=== PATIENT | male | born 1935 | race Caucasian/White ===

== ENCOUNTER 2020-05-30 18:48 | Emergency (ER) | payer MEDICARE, OTHER, SELFPAY ==
--- NOTE | 2020-05-30 | CTR_ITS ---
PROCEDURE INFORMATION: Exam: CT Maxillofacial Without Contrast Exam date and time: 05/30/2020 7:18 PM Age: 85 years old Clinical indication: Injury or trauma; Fall; Blunt trauma (contusions or hematomas); Forehead; Additional info: Laceration to forehead TECHNIQUE: Imaging protocol: Computed tomography images of the face without contrast. Radiation optimization: All CT scans at this facility use at least one of these dose optimization techniques: automated exposure control; mA and/or kV adjustment per patient size (includes targeted exams where dose is matched to clinical indication); or iterative reconstruction. COMPARISON: No relevant prior studies available. RADIATION DOSE METRICS: Total DLP (mGy-cm): 805 FINDINGS: Orbital cavity: Orbits are normal. Globes are unremarkable. Bones/joints: No acute fracture. Paranasal sinuses: Chronic left maxillary sinusitis is noted. CT/CT facial bones wo con* [id number] IMPRESSION: 1. No facial bone fracture. 2. Chronic left maxillary sinusitis Radiation Dose CTDIVOL = (mGy): DLP = 805 (mGy-cm)
[2020-05-30 18:59] VITALS: BP 198/84; PULSE 70; RESP 16; TEMP 37.4; O2SAT 98; BMI 24.0
[2020-05-30 19:02] VITALS: BP 167/91; PULSE 61; RESP 18; O2SAT 97
--- NOTE | 2020-05-30 19:06 | ED_ITS ---
HPI - Head Injury General: Chief complaint: Head Injury Stated complaint: TRIPPED OVER TRACKER BLADE, HIT FOREHEAD Time Seen by Provider: 05/30/20 19:06 History of Present Illness: HPI Narrative: Patient is a 85-year-old male who comes to the ED with head injury. Patient says he tripped over the blade on his tractor and his forehead hit his tractor truck tires. Denies any loss of consciousness or headache. He has a laceration on his forehead and some left periorbital ecchymosis and swelling. Denies any vision changes. Patient says he has had his tetanus shot within the last 5 years. Patient says he takes a daily aspirin, but is not on any other blood thinners. Associated symptoms: Deny nausea, neck pain or vomiting Review of Systems Const: Denies: fever(s), chills or fatigue Eyes: Reports: other (periorbital echymosis and swelling of left eye); Denies: change in vision or eye discomfort ENMT: Denies: throat pain, odynophagia, nasal discharge or nasal congestion Card: Denies: chest pain, palpitations, edema, swelling of feet/ankles, dyspnea on exertion or orthopnea Resp: Denies: dyspnea, productive cough or non-productive cough GI: Denies: abdominal pain, nausea, vomiting, diarrhea, constipation or hematochezia : Denies: flank pain, difficulty urinating, dysuria or hematuria Musc: Denies: neck pain, back pain or extremity swelling Skin/Breast: Reports: new lesions (laceration on forehead); Denies: rash Neuro: Denies: headache(s), numbness in extremities or weakness in extremities [facility] ED PFSH: Medical History ASHD (arteriosclerotic heart disease) Dyslipidemia GERD (gastroesophageal reflux disease) HTN (hypertension) Myocardial infarction ONEIL (obstructive sleep apnea) Surgical History S/P PTCA (percutaneous transluminal coronary angioplasty) Family History Father CAD (coronary artery disease) Mother CHF (congestive heart failure) Brother CAD (coronary artery disease) Myocardial infarction Social History Smoking and tobacco status: former smoker Household members: spouse Marital status: service: No Current occupational status: retired Physical Exam Narrative: EXAM NARRATIVE: Patient is a pleasant 85-year-old man that appears in no acute distress or pain exam. Const: COMMON NORMALS: no acute distress, patient oriented x3 and alert GENERAL APPEARANCE: cooperative and comfortable HENMT: COMMON NORMALS: normocephalic HEAD & SCALP: normocephalic and laceration left frontal Details of head laceration: linear, actively bleeding (minimal) and superficial; foreign body not present and not contaminated Head laceration size: 4.5 cm; no Reed's sign and no raccoon eyes MOUTH: Normal oral and palatal mucosa present THROAT: posterior oropharynx normal and uvula midline Eye: COMMON NORMALS: Equal, round and reactive pupils present and EOMs intact bilaterally PERIORBITAL: periorbital findings abnormal positive left periorbital swelling and periorbital ecchymosis PUPIL: Yes Equal, round and reactive pupils present Neck/C-Spine: COMMON NORMALS: supple GENERAL: Yes normal visual inspection Resp: COMMON NORMALS: normal respiratory effort, No retractions, No use of accessory muscles and clear to auscultation bilaterally AUSCULTATION: clear to auscultation bilaterally Cardio: COMMON NORMALS: regular rate, regular rhythm, S1 normal heart sound present, S2 normal heart sound present, No gallops present (Cardio), No clicks present (Cardio), No murmurs present (Cardio) and Peripheral pulses 2+ throughout RATE: regular rate RHYTHM: regular rhythm HEART SOUNDS: S1 normal heart sound present and S2 normal heart sound present PERIPHERAL PULSES: Peripheral pulses 2+ throughout GI: COMMON NORMALS: Normal to inspection, nondistended, normoactive bowel sounds present, Soft to palpation, non-tender and no masses PALPATION: Yes Soft to palpation : COMMON NORMALS: Yes no CVA tenderness BLADDER/KIDNEY EXAM: Yes no CVA tenderness Back/Pelvis: COMMON NORMALS: no CVA tenderness Extremity: COMMON NORMALS: normal to inspection Neuro: COMMON NORMALS: patient oriented x3, CN's II-XII intact bilaterally, moves all extremities, no focal motor deficits and no sensory deficits noted SENSORIUM/ORIENTATION: Yes alert SENSORY EXAM: Yes extremities (intact) MOTOR EXAM: 5/5 motor strength present throughout Skin: GENERAL SKIN EXAM: dry skin Procedures Laceration Laceration 1: Site: face (forehead) Side (If applicable): left Size (cm): 4.5 Description: linear and clean Depth: simple, single layer Local Anesthetic: lidocaine 1% Amount of anesthesia used (mL): 10 Pre-repair: wound explored and irrigated extensively (Irrigated extensively with normal saline.) Skin layer closed with: nylon Size (cm): 4-0 Number of sutures: 9 Technique: simple, interrupted Course Vital Signs: Vital signs: Vital Signs Temperature 99.3 F 05/30/20 18:59 Pulse Rate 78 05/30/20 20:33 Respiratory Rate 18 05/30/20 20:33 Blood Pressure 163/94 05/30/20 20:33 Pulse Oximetry 94 05/30/20 20:33 MDM - Head Injury MDM Narrative: Medical decision making narrative: Patient is an 85-year-old male comes to the ED with head injury. He has 4.5 cm linear laceration on left side of forehead left periorbital ecchymosis and swelling present. Neuro exam is normal. CT of head and facial bones showed no acute fractures or findings. Laceration forehead was irrigated extensively with normal saline and then 9 sutures were placed to close laceration. Patient was put on a prophylactic dose of Keflex. Patient was instructed on laceration care. Follow-up with PCP in 5 days for reevaluation and suture removal. Return to ED precautions given. Patient understood and agreed with plan. Lab Data: Labs: Lab Results 05/30/20 Range/Units 20:10 Urine Color Yellow (Yellow) Urine Appearance Cloudy (CLEAR) Urine pH 6 (5-7) Ur Specific Gravit y 1.015 (1.005-1.030) Urine Protein Neg (Negative) Urine Glucose (UA) Norm (Normal) Urine Ketones Negative (Negative) Urine Blood 3+ H (Negative) Urine Nitrate Negative (Negative) Urine Bilirubin Neg (Negative) Urine Urobilinogen Norm (Negative) mg/dL Ur Leukocyte Kaelyn ase 2+ H (Negative) Urine RBC >100 H (0-2) /hpf Urine WBC Too numerous to c nt H (0-5) /hpf Ur Squamous Epith Cells 0-4 H (0-5) /hpf Amorphous Sediment Not Reportable Urine Bacteria 4+ H (NONE) /hpf Imaging Data^: CT Head: Attestation: I personally reviewed and interpreted this imaging study as follows: Radiologist's impression: [address] [address] [address] Scan Report Signed Patient: Elvis Paiz Unit #: [id number] : 1935 Age/Sex: 85 / M ADM Date: 05/30/20 Loc: ER Room/Bed: Attending Dr: Ordering Provider/Ordering MD: Akhil Cuadra MD Date of Service: 05/30/20 Procedure(s): CT head wo con* [id number] Accession Number(s): [id number] Report Number: [id number] PROCEDURE INFORMATION: Exam: CT Head Without Contrast Exam date and time: 05/30/2020 7:09 PM Age: 85 years old Clinical indication: Injury or trauma; Fall; Blunt trauma (contusions or hematomas); Additional info: Head injury TECHNIQUE: Imaging protocol: Computed tomography of the head without contrast. Radiation optimization: All CT scans at this facility use at least one of these dose optimization techniques: automated exposure control; mA and/or kV adjustment per patient size (includes targeted exams where dose is matched to clinical indication); or iterative reconstruction. COMPARISON: CT head wo con* [id number] 12/09/2018 11:16 AM RADIATION DOSE METRICS: Total DLP (mGy-cm): 906.31 FINDINGS: Brain: Mild atrophy and mild white matter chronic microvascular changes are noted. No hemorrhage or CT evidence of acute infarction is seen. Cerebral ventricles: No ventriculomegaly. Bones/joints: Unremarkable. No acute fracture. Paranasal sinuses: Chronic left maxillary sinusitis is noted. Mastoid air cells: Visualized mastoid air cells are well aerated. Soft tissues: Soft tissue swelling and lacerations are present in the right frontal scalp and left aspect forehead. Mild soft tissue swelling is also seen in the left infraorbital region. CT/CT head wo con* [id number] IMPRESSION: No acute intracranial abnormality. Radiation Dose CTDIVOL = (mGy): DLP = 906.31 (mGy-cm) Dictated By: Rico Arreaga MD Signed By: Rico Arreaga MD Signed Date/Time: 05/30/201944 DD/ [address] [address] [address] Scan Report Signed Patient: Elvis Paiz Unit #: [id number] : 1935 Age/Sex: 85 / M ADM Date: 05/30/20 Loc: ER Room/Bed: Attending Dr: Ordering Provider/Ordering MD: Leobardo Blas Date of Service: 05/30/20 Procedure(s): CT facial bones wo con* [id number] Accession Number(s): [id number] Report Number: [id number] PROCEDURE INFORMATION: Exam: CT Maxillofacial Without Contrast Exam date and time: 05/30/2020 7:18 PM Age: 85 years old Clinical indication: Injury or trauma; Fall; Blunt trauma (contusions or hematomas); Forehead; Additional info: Laceration to forehead TECHNIQUE: Imaging protocol: Computed tomography images of the face without contrast. Radiation optimization: All CT scans at this facility use at least one of these dose optimization techniques: automated exposure control; mA and/or kV adjustment per patient size (includes targeted exams where dose is matched to clinical indication); or iterative reconstruction. COMPARISON: No relevant prior studies available. RADIATION DOSE METRICS: Total DLP (mGy-cm): 805 FINDINGS: Orbital cavity: Orbits are normal. Globes are unremarkable. Bones/joints: No acute fracture. Paranasal sinuses: Chronic left maxillary sinusitis is noted. CT/CT facial bones wo con* [id number] IMPRESSION: 1. No facial bone fracture. 2. Chronic left maxillary sinusitis Radiation Dose CTDIVOL = (mGy): DLP = 805 (mGy-cm) Dictated By: Rico Arreaga MD Signed By: Rico Arreaga MD Signed Date/Time: 05/30/201947 DD/ 45 Discharge Plan Discharge Patient Disposition: Home Clinical Impression: Facial laceration Qualifiers: Encounter type: initial encounter Qualified Code(s): S01.81XA - Laceration without foreign body of other part of head, initial encounter Condition: Stable Prescriptions: New cephalexin 500 mg capsule 500 mg PO Q6H 3 Days Qty: 12 RF: 0 No Action fluticasone propionate 50 mcg/actuation spray,suspension 1 spray INTRANASAL DAILY RF: 0 losartan 50 mg tablet 50 mg PO DAILY RF: 0 metoprolol tartrate 25 mg tablet 12.5 mg PO BID RF: 0 tamsulosin [Flomax] 0.4 mg capsule 0.4 mg PO DAILY RF: 0 hydrocodone-acetaminophen 5-325 mg tablet 1 tab PO Q6H PRNRF: 0 aspirin [Aspir-81] 81 mg tablet,delayed release (DR/EC) 81 mg PO DAILY RF: 0 MSM 1,000 mg capsule 1,000 mg PO BID RF: 0 saw palmetto 450 mg capsule 450 mg PO BID RF: 0 ascorbate calcium (vitamin C) 500 mg tablet 1 gm PO BID RF: 0 cholecalciferol (vitamin D3) 125 mcg (5,000 unit) capsule 125 mcg PO DAILY RF: 0 magnesium citrate Solution 150 ml PO DAILY RF: 0 nitroglycerin [Nitrostat] 0.4 mg tablet, sublingual 0.4 mg SUBLINGUAL Q5M PRN (Reason: chest pain) Qty: 25 RF: 2 Discharge Orders: Discharge ED (Routine); Ordered 05/30/20 Ordered By: Leobardo Blas Referrals: Selvin Canela MD [Primary Care Provider] - Discharge Diet: Regular Discharge Activity: Limit activity as instructed Patient Instructions: Suture Care (ED), Laceration (ED) Activity Restrictions/Additional Instructions: Take full course of antibiotics as prescribed. Keep laceration site clean and dry for the next 48 hours. Then after that you can clean and re-bandage daily. Watch for signs of infection such as redness, warmth, increased tenderness and puslike drainage. If you see the signs of infection return to the ED, urgent care or PCP for reevaluation. call your PCP to schedule a follow-up appointment for reevaluation and suture removal in about 5 days. Apply cold pack on face to help with swelling and take [id number] Tylenol for pain. Continue taking all home meds. Follow discharge plans as discussed. You can return to the ED if symptoms worsen. Coding Level of Care Code ED [facility] Exam Comprehensive
[2020-05-30 19:32] VITALS: BP 165/96; PULSE 73; RESP 18; O2SAT 94
[2020-05-30 20:33] VITALS: BP 163/94; PULSE 78; RESP 18; O2SAT 94
[2020-05-30 21:04] LABS: Bilirubin Urine Neg (Negative); Blood Urine 3+ (Negative); Glucose Urine UA Norm (Normal); Ketones Urine Negative (Negative); Nitrate Urine Negative (Negative); Protein Urine Neg (Negative); Specific Gravity, Urine 1.015 (1.005-1.030); Urine Appearance Cloudy (CLEAR); Urine Color Yellow (Yellow); pH Urine 6 (5-7)
[2020-05-30 21:05] LABS: Add Urine Microscopic? YES; Leukocyte Esterase Urine 2+ (Negative); Urobilinogen Urine Norm (Negative)
[2020-05-30 21:10] LABS: Bacteria Urine 4+ /hpf; RBC Urine >100 /hpf (0-2); Squamous Epithelial Cell Urine 0-4 /hpf (0-5); WBC Urine TOO NUMEROUS TO CNT /hpf (0-5)
[2020-05-30 21:11] LABS: Add Urine Culture? Yes
== END 2020-05-30 20:49 | disposition home or self-care (01) ==
PROVIDERS: Emergency Provider Physician Assistant; PCP Family Medicine
DX: S01.81XA Laceration without foreign body of other part of head, initial encounter (principal); W18.09XA Striking against other object with subsequent fall, initial encounter; E78.5 Hyperlipidemia, unspecified; I10 Essential (primary) hypertension; I25.2 Old myocardial infarction; Z87.891 Personal history of nicotine dependence; Z79.899 Other long term (current) drug therapy
CPT/HCPCS: 12013; 12345; 70450; 70486; 81001; 87077; 87086; 87186; 99281; 99283

== ENCOUNTER → 2021-05-09 12:09 | Outpatient (BNVA) | payer MEDICARE, OTHER, SELFPAY | PROVIDERS: PCP Family Medicine; Visit Provider Nurse Practitioner Family | DX: Z20.822 Contact with and (suspected) exposure to COVID-19 (principal) | CPT/HCPCS: 87635 ==

== ENCOUNTER 2021-07-18 15:05 | Outpatient (CLI) | payer MEDICARE, OTHER, SELFPAY ==
--- NOTE | 2021-07-18 15:45 | USCV_ITS ---
Elvis Paiz Age: 86 Gender: M : 1935 Exam Date: 07/18/2021 15:26 Ordering Phys: Castillo Winters M.D ([email or web address]) Technologist: Tomasa Jackson Exam Location: [facility] [place] Indication: MURMUR BP: 125 / 71 HR: 51 Rhythm: Sinus Technical Quality: Adequate MEASUREMENTS (Male / Female) Normal Values 2D ECHO LV Diastolic Diameter PLAX 4.1 cm 4.2 - 5.9 / 3.9 - 5.3 cm LV Systolic Diameter PLAX 2.9 cm LV Chamber Size 4.2 cm IVS Diastolic Thickness 1.1 cm 0.6 - 1.0 / 0.6 - 0.9 cm IVS Systolic Thickness 1.9 cm LVPW Diastolic Thickness 1.1 cm 0.6 - 1.0 / 0.6 - 0.9 cm LVPW Systolic Thickness 1.3 cm RV Chamber Size 3.4 cm LVOT Diameter 2.0 cm LV Ejection Fraction 2D Teich 55.8 % LV Ejection Fraction MOD 2C 43.7 % LV Ejection Fraction 2C AL 44.3 % LA Diameter 4.3 cm LA Width 4.3 cm LA Height 4.7 cm RA Width 2.6 cm RA Height 3.7 cm Aorta at Sinotubular Diameter 3.0 cm M-MODE Aortic Annulus Diameter 3.8 cm LA Ao Ratio MM 1.1 MV E Point Septal Separation 0.6 cm DOPPLER AV Peak Velocity 261.0 cm/s LVOT Peak Velocity 94.0 cm/s AV Area Cont Eq vti 1.1 cm squared AV Area Cont Eq pk 1.1 cm squared MV Area PHT 3.3 cm squared Mitral E to A Ratio 1.1 MV E' Velocity 49.0 cm/s Mitral E to MV E' Ratio 13.4 Mitral E to LV E' Lateral Ratio 12.5 Mitral E to LV E' Septal Ratio 14.7 TR Peak Velocity 245.5 cm/s TR Peak Gradient 24.1 mmHg TR Mean Velocity 152.7 cm/s TR Mean Gradient 10.8 mmHg TR Velocity Time Integral 68.1 cm TV Peak E Velocity 49.0 cm/s Right Atrial Pressure 3.0 mmHg Pulmonary Artery Systolic Pressu 27.1 mmHg PV Peak Velocity 124.0 cm/s RV Acceleration Time 0.1 s RV Ejection Time 0.4 s RV AcT/ET 0.4 FINDINGS Left Ventricle Normal left ventricular size. LV systolic function is normal with EFof 55-60%.No regional wall motion abnormalities. Right Ventricle The right ventricle is normal in size and function. Right Atrium The right atrium is normal in size. Left Atrium The left atrium is normal in size. Mitral Valve Structurally normal mitral valve without significant stenosis or prolapse. There is no mitral regurgitation. Aortic Valve Aortic valve is thickened and calcified. Mild to moderate aortic stenosis with aortic valve area of 1.13cm2 and mean gradient across the aortic valve of 12.3mmHg. There is no aortic regurgitation. Tricuspid Valve Structurally normal tricuspid valve without significant stenosis. Mild tricuspid regurgitation. Pulmonary artery systolic pressure is normal. Pulmonic Valve Structurally normal pulmonic valve without significant stenosis. There is no pulmonic regurgitation. Pericardium Normal pericardium without effusion. Aorta Normal ascending aorta dimension. CONCLUSIONS LV systolic function is normla with EF of 55-60% Grade II diastolic dysfunction Aortic valve is thickened and calcified. Mild to moderate aortic stenosis with aortic valve area of 1.13cm2 and mean gradient across the aortic valve of 12.3mmHg. Mild tricuspid regurgitation No comparison studies are available Castillo Winters MD (Electronically Signed) Final Date: 20 July 2021 23:54 S
== END 2021-07-18 15:06 | disposition home or self-care (01) ==
LOC: RAD 15:11
PROVIDERS: PCP Family Medicine; Visit Provider Internal Medicine
DX: R01.1 Cardiac murmur, unspecified (principal); I35.0 Nonrheumatic aortic (valve) stenosis; I07.1 Rheumatic tricuspid insufficiency
CPT/HCPCS: 93306

== ENCOUNTER 2021-08-23 18:08 | Emergency (ER) | payer MEDICARE, OTHER, SELFPAY ==
[2021-08-23] VITALS (11 sets, daily range): BP systolic 133–183; BP diastolic 79–105; PULSE 72–99; RESP 13–25; TEMP 36.8–37; O2SAT 92–97; BMI 25.8
--- NOTE | 2021-08-23 18:10 | XRR_ITS ---
PROCEDURE INFORMATION: Exam: XR Chest Exam date and time: 08/23/2021 6:19 PM Age: 86 years old Clinical indication: Pain; Angina pectoris; Prior surgery; Surgery date: 6+ months; Surgery type: Stimulator; Additional info: Cp, left eye excessively watering, left sided jaw pain TECHNIQUE: Imaging protocol: XR of the chest. Views: 1 view. COMPARISON: CR Chest [address] [place] [id number] 12/09/2018 11:24 AM FINDINGS: Lungs: Unchanged hyperinflation with peripheral fibrosis. Pulmonary vascularity is within normal limits. No new consolidation. Pleural spaces: Unremarkable. No pleural effusion. No pneumothorax. Heart/Mediastinum: Unchanged cardiomegaly. Bones/joints: No acute abnormality. XR/XR chest 1V portable [id number] IMPRESSION: No acute findings. Unchanged pulmonary fibrosis.
--- NOTE | 2021-08-23 18:10 | ECG_ITS ---
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 Measurements Intervals [place] Rate: 91 P: 49 DC: 226 QRS: 24 QRSD: 102 T: 22 QT: 320 QTc: 395 Interpretive Statements SINUS RHYTHM WITH FIRST DEGREE AV BLOCK NONSPECIFIC T-WAVE ABNORMALITY Compared to ECG 12/09/2018 11:36:57 First degree AV block now present T-wave abnormality now present Sinus bradycardia no longer present Electronically Signed On 08-23-2021 22:40:23 CDT by Castillo Winters M.D. [id number]
--- NOTE | 2021-08-23 19:10 | CTR_ITS ---
PROCEDURE INFORMATION: Exam: CT Head Without Contrast Exam date and time: 08/23/2021 7:30 PM Age: 86 years old Clinical indication: Pain; Headache not specified; Patient HX: C/O L sided JIMENEZ w HTN TECHNIQUE: Imaging protocol: Computed tomography of the head without contrast. Radiation optimization: All CT scans at this facility use at least one of these dose optimization techniques: automated exposure control; mA and/or kV adjustment per patient size (includes targeted exams where dose is matched to clinical indication); or iterative reconstruction. COMPARISON: CT head wo con* [id number] 05/30/2020 7:08 PM RADIATION DOSE METRICS: Total DLP (mGy-cm): 1039.16 FINDINGS: Brain: There is volume loss and periventricular low density compatible with chronic small vessel disease changes. There is no acute hemorrhage, edema or mass effect. Cerebral ventricles: No ventriculomegaly. Paranasal sinuses: There is unchanged chronic sinusitis involving the left maxillary and ethmoidal air cells. Mastoid air cells: Visualized mastoid air cells are well aerated. Bones/joints: Unremarkable. No acute fracture. Soft tissues: Unremarkable. CT/CT head wo con* [id number] IMPRESSION: No acute intracranial abnormality.
--- NOTE | 2021-08-23 19:10 | W.ED.GENADLT ---
HPI - General Adult General: Chief complaint: General Medical Stated complaint: sent to ER per Dr. Winters Time Seen by Provider: 08/23/21 19:03 Source: patient Mode of arrival: ambulatory Limitations: no limitations History of Present Illness: 86-year-old male who states that over the last 2 days he has been having some dizziness and feeling weak. He states that his heart rate and blood pressure been going up and down. He states its been high at times and pressures been 80s at times he has had bradycardia down to 30s with his pulse ox machine. He states he just has not felt right and felt very dizzy. He denies any chest pain he has had a headache along with some left-sided facial pain. Denies any worsening improving factors. Associated symptoms: Deny chest pain, dyspnea, nausea, rash or vomiting Review of Systems Const: Denies: fever(s), chills, body aches or change in appetite Eyes: Denies: blurry vision or eye discomfort ENMT: Denies: throat pain or dental pain Card: Denies: chest pain Resp: Denies: dyspnea GI: Denies: abdominal pain, nausea, vomiting or diarrhea : Denies: dysuria Musc: Denies: neck pain or back pain Skin/Breast: Denies: rash Neuro: Reports: weakness in extremities and dizziness Psych: Denies: depression Sebastien/Lymph: Denies: easy bruising All/Imm: Denies: urticaria PFSH ED PFSH: Medical History (Updated 08/23/21 @ 21:49 by Akhil Cuadra MD) ASHD (arteriosclerotic heart disease) Dyslipidemia GERD (gastroesophageal reflux disease) HTN (hypertension) Myocardial infarction ONEIL (obstructive sleep apnea) Surgical History S/P PTCA (percutaneous transluminal coronary angioplasty) Family History Father CAD (coronary artery disease) Mother CHF (congestive heart failure) Brother CAD (coronary artery disease) Myocardial infarction Social History Smoking and tobacco status: former smoker Alcohol intake: never Household members: spouse Marital status: service: No Current occupational status: retired Physical Exam Const: COMMON NORMALS: no acute distress, patient oriented x3 and healthy appearing HENMT: COMMON NORMALS: normocephalic and atraumatic HEAD & SCALP: normocephalic and atraumatic Eye: COMMON NORMALS: Equal, round and reactive pupils present and EOMs intact bilaterally PUPIL: Yes Equal, round and reactive pupils present Neck/C-Spine: COMMON NORMALS: full ROM and supple Chest: COMMONS NORMALS: normal inspection of the chest and normal palpation of entire chest wall Resp: COMMON NORMALS: normal respiratory effort, No retractions, No use of accessory muscles and clear to auscultation bilaterally AUSCULTATION: clear to auscultation bilaterally Cardio: COMMON NORMALS: regular rate, regular rhythm and No murmurs present (Cardio) RATE: regular rate RHYTHM: regular rhythm GI: COMMON NORMALS: Normal to inspection, nondistended, normoactive bowel sounds present, Soft to palpation, non-tender and no masses PALPATION: Yes Soft to palpation Extremity: COMMON NORMALS: normal to inspection and full ROM Neuro: COMMON NORMALS: patient oriented x3, moves all extremities and no focal motor deficits Psych: COMMON NORMALS: mental status grossly normal, Normal thought process present and cooperative THOUGHT PROCESS: Normal thought process present Skin: COMMON NORMALS: no rashes or lesions noted and no wounds GENERAL SKIN EXAM: no rashes or lesions noted Course Vital Signs: Vital signs: Vital Signs Temperature 98.6 F 08/23/21 18:56 Pulse Rate 76 08/23/21 22:50 Respiratory Rate 15 08/23/21 22:50 Blood Pressure 156/89 08/23/21 22:50 Pulse Oximetry 93 08/23/21 22:50 [facility] - General Adult Medical Decision Making Patient presents here with hypotension and some bradycardia at home. He did not take his blood pressure meds today and is actually hypertensive here I did speak to his drain cleaner plumber Dr. Zamudio who wants to see him in clinic on Thursday and likely do an event monitoring. He is also having some left-sided eye pain I did Socrates-Pen measurements and had his pressure at 37 I spoke to his budget consultant Dr. Dangelo and added another eyedrop twice daily to his regimen and he is going to see him Thursday he is to return if worsening. I did offer patient admission but he states he feels improved would just like to follow-up Thursday I informed if he worsens at all he is to return immediately he understands agrees to plan. Lab Data : 08/23/21 19:25 08/23/21 20:15 Radiology Impressions Chest X-Ray 08/23/21 18:10 IMPRESSION: No acute findings. Unchanged pulmonary fibrosis. Head CT 08/23/21 19:10 IMPRESSION: No acute intracranial abnormality. Laboratory Results WBC 10.3 10^3/uL (4.0-10.0) H 08/23/21 19:25 RBC 4.68 10^6/uL (4.1-5.3) 08/23/21 19:25 Hgb 13.9 g/dL (11.7-16.6) 08/23/21: Hct 43.4 % (42.0-52.0) 08/23/21: MCV 92.7 fl (80-94) 08/23/21 19:25 MCH 29.7 pg (28.0-34.0) 08/23/21: MCHC 32.0 g/dL (30.0-36.0) 08/23/21 19: RDW 13.7 % (12.1-15.1) 08/23/21 19: Plt Count 232 10^3/cmm (130-400) 08/23/21: MPV 10.9 fL (7.4-10.4) H 08/23/21 19:25 Neut % (Auto) 63.5 % 08/23/21 19: Lymph % (Auto) 23.1 % 08/23/21 19:25 [place] % (Auto) 11.0 % 08/23/21 19:25 Eos % (Auto) 1.8 % 08/23/21 19:25 Baso % (Auto) 0.3 % 08/23/21:25 Neut # (Auto) 6.53 10^3/uL (1.8-7.7) 08/23/21: Lymph # (Auto) 2.4 10^3/uL (0.8-4.8) 08/23/21 19:25 [place] # (Auto) 1.1 10^3/uL (0.2-0.9) H 08/23/21 19:25 Eos # (Auto) 0.2 10^3/uL (0.0-0.8) 08/23/21 19:25 Baso # (Auto) 0.0 10^3/uL (0.0-0.1) 08/23/21 19:25 Nucleated RBC % (auto) 0 % 08/23/21 19:25 Nucleated RBCs # 0.0 /100WBC 08/23/21 19:25 Sodium 137 mmol/L (136-145) 08/23/21 20:15 Potassium 4.3 mmol/L (3.5-5.1) 08/23/21 20:15 Chloride 103 mmol/L (98-107) 08/23/21 20:15 Carbon Dioxide 27 mmol/L (22-29) 08/23/21 20:15 Anion Gap 11.3 (5-19) 08/23/21 20:15 BUN 17 mg/dL (8-23) 08/23/21 20:15 Creatinine 0.9 mg/dL (0.7-1.2) 08/23/21 20:15 GFR Calculation Not Reportable 08/23/21 20:15 Glucose 100 mg/dL (65-115) 08/23/21 20:15 Calculated Osmolality 286 mOsm/kg (285-295) 08/23/21 20:15 Calcium 10.2 mg/dL (8.5-10.5) 08/23/21 20:15 Total Bilirubin 0.2 mg/dL (0.15-1.2) 08/23/21 20:15 AST 14 U/L (0-40) 08/23/21 20:15 ALT 12 U/L (0-41) 08/23/21 20:15 Alkaline Phosphatase 150 IU/L (40-130) H 08/23/21 20:15 Troponin T Baseline 14 ng/L (0-15) 08/23/21 20:15 Total Protein 7.0 g/dL (6.6-8.7) 08/23/21 20:15 Albumin 3.9 g/dL (3.5-5.2) 08/23/21 20:15 Globulin 3.1 g/dL (1.3-4.6) 08/23/21 20:15 EKG Data EKG 1: I personally reviewed and interpreted this EKG as follows: EKG interpretation date: 08/23/21 EKG interpretation time: 19:12 Interpretation: nsr hr [address] or t wave abnormalities qrs 102 qtc 369 Computer generated interpretation: Chest X-Ray 08/23/21 18:10 IMPRESSION: No acute findings. Unchanged pulmonary fibrosis. Head CT 08/23/21 19:10 IMPRESSION: No acute intracranial abnormality. EKG 2: I personally reviewed and interpreted this EKG as follows: EKG interpretation date: 08/23/21 EKG interpretation time: 20:01 Interpretation: nsr hr [address] or t wave abnormalities qrs 90 qtc 354 Computer generated interpretation: Chest X-Ray 08/23/21 18:10 IMPRESSION: No acute findings. Unchanged pulmonary fibrosis. Head CT 08/23/21 19:10 IMPRESSION: No acute intracranial abnormality. Discharge Plan Discharge Patient Disposition: Home Clinical Impression: HTN (hypertension), Bradycardia, Glaucoma Condition: Stable Prescriptions: New [place] 0.2-0.5 % drops 1 drp ophthalmic (eye) BID Qty: 15 0RF No Action fluticasone propionate 50 mcg/actuation spray,suspension 1 spray INTRANASAL DAILY 0RF metoprolol tartrate 25 mg tablet 12.5 mg PO BID 0RF tamsulosin [Flomax] 0.4 mg capsule 0.4 mg PO DAILY 0RF hydrocodone-acetaminophen 5-325 mg tablet 1 tab PO Q6H PRN0RF aspirin [Aspir-81] 81 mg tablet,delayed release (DR/EC) 81 mg PO DAILY 0RF MSM 1,000 mg capsule 1,000 mg PO BID 0RF ascorbate calcium (vitamin C) 500 mg tablet 1 gm PO BID 0RF cholecalciferol (vitamin D3) 125 mcg (5,000 unit) capsule 125 mcg PO DAILY 0RF magnesium citrate Solution 150 ml PO DAILY 0RF losartan 50 mg tablet 50 mg PO DAILY 0RF nitroglycerin [Nitrostat] 0.4 mg tablet, sublingual 0.4 mg SUBLINGUAL Q5M PRN (Reason: chest pain) Qty: 25 2RF Rx Instructions: 1 tablet sublingually every 5 minutes as needed chest pain Discharge Orders: Discharge ED (Routine); Ordered 08/23/21 Ordered By: Akhil Cuadra Referrals: Castillo Winters M.D [Physician] - 1-3 days Luis Dangelo MD [Physician] - 1-3 days Selvin Canela MD [Primary Care Provider] - Discharge Diet: Advance as tolerated Discharge Activity: Resume usual activity Patient Instructions: Glaucoma (ED), Hypertension (ED) Coding Level of Care Code ED Ecommerce Merchandising Manager for Chg Fwd Exam Comprehensive
[2021-08-23 19:41] LABS: Basophils % 0.3 %; Eosinophils # 0.2 10^3/uL (0.0-0.8); Eosinophils % 1.8 %; Hematocrit 43.4 % (42.0-52.0); Hemoglobin 13.9 g/dL (11.7-16.6); Lymphocytes # 2.4 10^3/uL (0.8-4.8); Lymphocytes % 23.1 %; Mean Corpuscular Hemoglobin 29.7 pg (28.0-34.0); Mean Corpuscular Volume 92.7 fl (80-94); Mean Platelet Volume 10.9 fL (7.4-10.4); Monocytes # 1.1 10^3/uL (0.2-0.9); Neutrophils # 6.53 10^3/uL (1.8-7.7); Neutrophils % 63.5 %; Nucleated Red Blood Cells % 0 %; Platelet Count 232 10^3/cmm (130-400); Red Blood Count 4.68 10^6/uL (4.1-5.3); Red Cell Distribution Width 13.7 % (12.1-15.1); White Blood Count 10.3 10^3/uL (4.0-10.0)
--- NOTE | 2021-08-23 20:10 | ECG_ITS ---
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 Measurements Intervals [place] Rate: 83 P: 58 FL: 211 QRS: 13 QRSD: 90 T: 9 QT: 315 QTc: 370 Interpretive Statements SINUS RHYTHM WITH FIRST DEGREE AV BLOCK Compared to ECG 08/23/2021 19:12:08 T-wave abnormality no longer present Electronically Signed On 08-23-2021 22:42:05 CDT by Castillo Winters M.D. [id number]
[2021-08-23 20:35] LABS: Troponin(5th) Baseline 14 ng/L (0-15)
[2021-08-23 20:36] LABS: Alanine Aminotransferase 12 U/L (0-41); Albumin Level 3.9 g/dL (3.5-5.2); Alkaline Phosphatase 150 IU/L (40-130); Anion Gap 11.3 (5-19); Aspartate Amino Transferase 14 U/L (0-40); Blood Urea Nitrogen 17 mg/dL (8-23); Calcium 10.2 mg/dL (8.5-10.5); Carbon Dioxide 27 mmol/L (22-29); Chloride 103 mmol/L (98-107); Globulin 3.1 g/dL (1.3-4.6); Glucose 100 mg/dL (65-115); Osmolality Calculated 286 mOsm/kg (285-295); Potassium 4.3 mmol/L (3.5-5.1); Sodium 137 mmol/L (136-145); Total Bilirubin 0.2 mg/dL (0.15-1.2)
[2021-08-23] MEDS: fluorescein 1 mg Strip EYE-LEFT (22:35)
[2021-08-23] MEDS: tetracaine 0.5% Op Soln 4 mL Btl 1 DROP EYE-LEFT (22:36)
== END 2021-08-23 22:55 | disposition home or self-care (01) ==
PROVIDERS: Emergency Provider Emergency Medicine; PCP Family Medicine
DX: I10 Essential (primary) hypertension (principal); R00.1 Bradycardia, unspecified; H40.9 Unspecified glaucoma; I25.10 Atherosclerotic heart disease of native coronary artery without angina pectoris; E78.5 Hyperlipidemia, unspecified; I25.2 Old myocardial infarction; Z79.82 Long term (current) use of aspirin; Z87.891 Personal history of nicotine dependence
CPT/HCPCS: 70450; 71045; 80053; 84484; 85025; 93005; 99284

== ENCOUNTER → 2021-08-27 14:17 | Outpatient (BNVA) | payer MEDICARE, OTHER, SELFPAY | PROVIDERS: PCP Family Medicine; Visit Provider Nurse Practitioner Family | DX: I10 Essential (primary) hypertension (principal); I25.10 Atherosclerotic heart disease of native coronary artery without angina pectoris; M26.69 Other specified disorders of temporomandibular joint; E78.5 Hyperlipidemia, unspecified; R74.8 Abnormal levels of other serum enzymes; Z79.82 Long term (current) use of aspirin; Z87.891 Personal history of nicotine dependence | CPT/HCPCS: 36415; 82977; 84443; 85651; 86141; 99214 ==

== ENCOUNTER 2021-09-20 13:17 | Inpatient (IN) | payer MEDICARE, OTHER, SELFPAY ==
[2021-09-20] VITALS (8 sets, daily range): BP systolic 150–181; BP diastolic 75–125; PULSE 46–63; RESP 15–22; TEMP 36.4–37.1; O2SAT 94–98; BMI 25.1; BMI 26.2
--- NOTE | 2021-09-20 13:45 | W.ED.GENADLT ---
HPI - General Adult General: Chief complaint: General Medical Stated complaint: sent to ER per Dr. Winters Time Seen by Provider: 09/20/21 13:29 Source: patient and family Mode of arrival: ambulatory Limitations: no limitations History of Present Illness: This patient was referred to the emergency department by local cardiology office. He had an ambulatory monitor in place and apparently he had an episode consistent with third-degree heart block earlier today and was referred to the emergency department. The patient is apparently been having episodes of lightheadedness and near syncope for the past few weeks which resulted in the use of the ambulatory monitor. He denies chest pain or shortness of breath etc. He does have a history of coronary disease had previous stents placed but is been doing his activities of daily living without too much issues at play other than the above-noted lightheadedness. He apparently is previously taken metoprolol but has been holding that for the interim. He has not taken his medications today. He denies any other constitutional complaints at this time. Associated symptoms: Deny chest pain, dyspnea, headache(s), nausea, rash, palpitations or vomiting Review of Systems Const: Denies: fever(s), chills or body aches Eyes: Denies: change in vision ENMT: Denies: throat pain or odynophagia Card: Reports: lightheadedness, pre-syncope and leg pain with exertion; Denies: chest pain, palpitations, irregular heart rhythm, swelling of feet/ankles or dyspnea on exertion Resp: Denies: dyspnea, productive cough or non-productive cough GI: Reports: hematemesis; Denies: abdominal pain, nausea or vomiting : Denies: flank pain, difficulty urinating, dysuria or urinary frequency Musc: Denies: neck pain, back pain, extremity pain or extremity swelling Skin/Breast: Denies: rash, pruritus or erythema Neuro: Denies: headache(s), numbness in extremities, weakness in extremities or frequent falls Psych: Denies: anxiety or depression Endo: Denies: polyuria, polydipsia or tired all the time Sebastien/Lymph: Denies: easy bruising or easy bleeding [facility] ED PFSH: Medical History (Updated 09/20/21 @ 14:36 by Morris Arreaga DO) ASHD (arteriosclerotic heart disease) Dyslipidemia GERD (gastroesophageal reflux disease) HTN (hypertension) Myocardial infarction ONEIL (obstructive sleep apnea) Surgical History S/P PTCA (percutaneous transluminal coronary angioplasty) Family History Father CAD (coronary artery disease) Mother CHF (congestive heart failure) Brother CAD (coronary artery disease) Myocardial infarction Social History Smoking and tobacco status: former smoker Alcohol intake: never Household members: spouse Marital status: service: No Current occupational status: retired Physical Exam Narrative: EXAM NARRATIVE: The patient is presently in the examination room comfortable and alert. He answers questions in a goal-directed fashion and is cooperative. Const: COMMON NORMALS: no acute distress, average body habitus and patient oriented x3 GENERAL APPEARANCE: comfortable HENMT: COMMON NORMALS: normocephalic, atraumatic, Normal nasal mucous membranes and turbinates present and moist oral mucous membranes HEAD & SCALP: normocephalic and atraumatic NOSE: Normal nasal mucous membranes and turbinates present Eye: COMMON NORMALS: Equal, round and reactive pupils present and EOMs intact bilaterally PUPIL: Yes Equal, round and reactive pupils present Neck/C-Spine: COMMON NORMALS: full ROM, no JVD and No carotid bruits Chest: COMMONS NORMALS: normal inspection of the chest and normal palpation of entire chest wall Resp: COMMON NORMALS: normal respiratory effort, No retractions, No use of accessory muscles and clear to auscultation bilaterally AUSCULTATION: clear to auscultation bilaterally Cardio: COMMON NORMALS: no JVD, regular rhythm, No gallops present (Cardio) and Peripheral pulses 2+ throughout RHYTHM: regular rhythm HEART SOUNDS: Murmur heart sound present (2/6) systolic PERIPHERAL PULSES: Peripheral pulses 2+ throughout GI: COMMON NORMALS: Soft to palpation and non-tender PALPATION: Yes Soft to palpation : COMMON NORMALS: Yes no CVA tenderness BLADDER/KIDNEY EXAM: Yes no CVA tenderness Back/Pelvis: COMMON NORMALS: no CVA tenderness, thoracic and lumbar spine normal to inspection, no thoracic nor lumbar tenderness and thoraco-lumbar ROM normal Extremity: COMMON NORMALS: normal to inspection, full ROM, capillary refill normal, no calf tenderness and no pedal edema Neuro: COMMON NORMALS: patient oriented x3, moves all extremities, no focal motor deficits and no sensory deficits noted Psych: COMMON NORMALS: mental status grossly normal Skin: COMMON NORMALS: no rashes or lesions noted and turgor normal GENERAL SKIN EXAM: no rashes or lesions noted and turgor normal Course ED course: Patient presented as noted in the history of present illness. I discussed with Dr. Marcano the attending scrap crane operator who informed me that his event monitor showed third-degree AV block and requested him to be sent to the emergency department for evaluation and admission for consideration for permanent pacemaker. Consultations: Consultation #1: Discussed with Dr. Amezcua attending hospitalist who agreed to place the patient in observation. Time: 14:44 Vital Signs: Vital signs: Vital Signs Temperature 97.6 F 09/20/21 13:22 Pulse Rate 48 L 09/20/21 13:22 Respiratory Rate 17 09/20/21 13:22 Blood Pressure 163/125 09/20/21 13:22 Pulse Oximetry 94 09/20/21 13:22 [facility] - General Adult Medical Decision Making Patient sent to the emergency department because of presyncopal history of the past few weeks with episode of complete heart block captured on Holter monitor today. He is currently clinically stable with first-degree block on his resting EKG today but will be placed in observation for continued monitoring and/or consideration for permanent pacemaker. Medical Records I reviewed the patient's medical records. Lab Data I reviewed the patient's lab results. : 09/20/21 14:07 09/20/21 14:07 Radiology Impressions Chest X-Ray 09/20/21 13:51 Impression: No acute cardiopulmonary disease is noted. Laboratory Results WBC 9.6 10^3/uL (4.0-10.0) 09/20/21 14:07 RBC 4.68 10^6/uL (4.1-5.3) 09/20/21 14:07 Hgb 13.9 g/dL (11.7-16.6) 09/20/21 14:07 Hct 43.3 % (42.0-52.0) 09/20/21 14:07 MCV 92.5 fl (80-94) 09/20/21 14:07 MCH 29.7 pg (28.0-34.0) 09/20/21 14:07 MCHC 32.1 g/dL (30.0-36.0) 09/20/21 14:07 RDW 13.6 % (12.1-15.1) 09/20/21 14:07 Plt Count 222 10^3/cmm (130-400) 09/20/21 14:07 MPV 11.1 fL (7.4-10.4) H 09/20/21 14:07 Neut % (Auto) 57.0 % 09/20/21 14:07 Lymph % (Auto) 28.9 % 09/20/21 14:07 [place] % (Auto) 11.0 % 09/20/21 14:07 Eos % (Auto) 2.5 % 09/20/21 14:07 Baso % (Auto) 0.3 % 09/20/21 14:07 Neut # (Auto) 5.48 10^3/uL (1.8-7.7) 09/20/21 14:07 Lymph # (Auto) 2.8 10^3/uL (0.8-4.8) 09/20/21 14:07 [place] # (Auto) 1.1 10^3/uL (0.2-0.9) H 09/20/21 14:07 Eos # (Auto) 0.2 10^3/uL (0.0-0.8) 09/20/21 14:07 Baso # (Auto) 0.0 10^3/uL (0.0-0.1) 09/20/21 14:07 Nucleated RBC % (auto) 0 % 09/20/21 14:07 Nucleated RBCs # 0.0 /100WBC 09/20/21 14:07 Sodium 140 mmol/L (136-145) 09/20/21 14:07 Potassium 4.3 mmol/L (3.5-5.1) 09/20/21 14:07 Chloride 104 mmol/L (98-107) 09/20/21 14:07 Carbon Dioxide 28 mmol/L (22-29) 09/20/21 14:07 Anion Gap 12.3 (5-19) 09/20/21 14:07 BUN 17 mg/dL (8-23) 09/20/21 14:07 Creatinine 0.8 mg/dL (0.7-1.2) 09/20/21 14:07 GFR Calculation Not Reportable 09/20/21 14:07 Glucose 83 mg/dL (65-115) 09/20/21 14:07 Calculated Osmolality 291 mOsm/kg (285-295) 09/20/21 14:07 Calcium 10.2 mg/dL (8.5-10.5) 09/20/21 14:07 Total Bilirubin 0.2 mg/dL (0.15-1.2) 09/20/21 14:07 AST 17 U/L (0-40) 09/20/21 14:07 ALT 13 U/L (0-41) 09/20/21 14:07 Alkaline Phosphatase 136 IU/L (40-130) H 09/20/21 14:07 Total Protein 7.3 g/dL (6.6-8.7) 09/20/21 14:07 Albumin 3.8 g/dL (3.5-5.2) 09/20/21 14:07 Globulin 3.5 g/dL (1.3-4.6) 09/20/21 14:07 EKG Data EKG 1: I personally reviewed and interpreted this EKG as follows: EKG interpretation time: 13:30 Interpretation: Resting EKG obtained in the emergency department reveals ventricular rate of 46 bpm with a prolonged ND interval. QRS duration is normal. QTc intervals normal. Axes are normal. Consistent with sinus bradycardia with a first-degree AV block. Computer generated interpretation: Chest X-Ray 09/20/21 13:51 Impression: No acute cardiopulmonary disease is noted. Discharge Plan Discharge Patient Disposition: Placed in Observation Clinical Impression: Third degree heart block, Hypertension, Pre-syncope Coding Level of Care Code ED Veterinary Technician for Chg Fwd Exam Comprehensive
--- NOTE | 2021-09-20 13:51 | XR_ITS ---
WS: [id number] Portable AP upright chest, 09/20/2021 Clinical Data: presyncope Comparison: Portable chest, 08/23/2021. Findings: No nodules, masses or effusions are seen. The heart is normal. The pulmonary vascularity is not increased. No pneumonia or pneumothorax is seen. There is diffuse fibrotic change with volume lo ss of the lungs which remains the same. Epidural stimulator wires probably and in the midthoracic epi dural space. There is recording device overlying the aortic arch. The heart is enlarged. The aortic a rch and descending thoracic aorta show calcification and tortuosity. Monitor leads are on the chest w all. There has been surgery of the left AC joint with an orthopedic plate and screws. XR/XR chest 1V portable [id number] Impression: No acute cardiopulmonary disease is noted.
[2021-09-20 14:18] LABS: Basophils % 0.3 %; Eosinophils # 0.2 10^3/uL (0.0-0.8); Eosinophils % 2.5 %; Hematocrit 43.3 % (42.0-52.0); Hemoglobin 13.9 g/dL (11.7-16.6); Lymphocytes # 2.8 10^3/uL (0.8-4.8); Lymphocytes % 28.9 %; Mean Corpuscular HGB Conc 32.1 g/dL (30.0-36.0); Mean Corpuscular Hemoglobin 29.7 pg (28.0-34.0); Mean Corpuscular Volume 92.5 fl (80-94); Mean Platelet Volume 11.1 fL (7.4-10.4); Monocytes # 1.1 10^3/uL (0.2-0.9); Neutrophils # 5.48 10^3/uL (1.8-7.7); Nucleated Red Blood Cells % 0 %; Platelet Count 222 10^3/cmm (130-400); Red Blood Count 4.68 10^6/uL (4.1-5.3); Red Cell Distribution Width 13.6 % (12.1-15.1); White Blood Count 9.6 10^3/uL (4.0-10.0)
[2021-09-20 14:45] LABS: Alanine Aminotransferase 13 U/L (0-41); Albumin Level 3.8 g/dL (3.5-5.2); Alkaline Phosphatase 136 IU/L (40-130); Anion Gap 12.3 (5-19); Aspartate Amino Transferase 17 U/L (0-40); Blood Urea Nitrogen 17 mg/dL (8-23); Calcium 10.2 mg/dL (8.5-10.5); Carbon Dioxide 28 mmol/L (22-29); Chloride 104 mmol/L (98-107); Creatinine Clr Calc Pharmacy 71.2293; Globulin 3.5 g/dL (1.3-4.6); Glucose 83 mg/dL (65-115); Osmolality Calculated 291 mOsm/kg (285-295); Potassium 4.3 mmol/L (3.5-5.1); Sodium 140 mmol/L (136-145); Total Bilirubin 0.2 mg/dL (0.15-1.2); Total Protein 7.3 g/dL (6.6-8.7)
--- NOTE | 2021-09-20 14:47 | PC.PHAR ---
pts verified pts medications- states the pts metoprolol tartrate 12.5mg bid was dced 4 weeks ago ext med history shows last filled 09/11/21 90d/s-pts states the flomax was put on hold 09/12/21-imdur er 30mg qam was filled on 06/24/21 90d/s pts states pt took one dose in jun 2021 and never took again
--- NOTE | 2021-09-20 15:15 | P.HP_ITS ---
Providers/Chief Complaint Primary Care Provider: Selvin Canela MD Chief Complaint: sent to ER per Dr. Winters History of Present Illness Elvis Paiz is a 86 gentleman with past medical history of CAD, myocardial infarction in 2012 since then he has had 5 stents placed, hypertension, hyperlipidemia, mild to moderate aortic stenosis. Patient presented to the ER today after he received a call from cardiology office regarding heart block. As per the patient and family this all started a month ago when he was having dizziness on and off on a daily basis both during rest and ambulation after which he had a Holter monitor placed. Today he received a call from cardiology office and Holter monitoring company alerting him regarding slow heart rate. Patient has been having dizziness since placement of the monitor. His beta- adelaide has been stopped for over a month ago and tamsulosin was stopped by his primary care's office around a week ago. Patient denies of having any nausea, vomiting, chest pain along with the episodes. On the Holter monitor report review it seems patient was in complete heart block at around 11 AM today. As per the patient he was awake laying in bed talking to his family at that time. On examination patient is in first-degree heart block. Denies of having any active symptoms currently. Blood work as below. Review of Systems General: Reports: 10 or more systems reviewed and unremarkable except in HPI and below Const: Denies: fever(s), chills, body aches, change in appetite, change in weight, malaise, night sweats, diaphoresis, change in sleep pattern, daytime sleepiness or snoring Eyes: Denies: change in vision, blurry vision, photophobia, eye discomfort or eye discharge ENMT: Denies: throat pain, enlarged tonsils, hoarseness, mouth pain, oral sores, dry mouth, tinnitus, nasal congestion or post nasal drip Card: Denies: chest pain, palpitations, irregular heart rhythm, edema, s welling of feet/ankles, lightheadedness, syncope, pre-syncope, dyspnea on exertion, orthopnea, leg pain with exertion or acrocyanosis Resp: Denies: dyspnea, productive cough, non-productive cough, wheezing, stridor, pain on inspiration, change in phlegm color, hemoptysis or chest congestion GI: Denies: abdominal pain, nausea, vomiting, hematemesis, coffee ground emesis, dysphagia, heartburn, diarrhea, constipation, bloating, GI cramping, change in bowel habits, pain on defecation, hematochezia or melena : Denies: flank pain, difficulty urinating, dysuria, urinary frequency, urinary urgency, urinary hesitancy, urinary dribbling, difficulty starting urination, change in urine stream, nocturia or hematuria Musc: Denies: neck pain, back pain, extremity pain, joint pain, joint swelling, joint redness, joint stiffness or limited range of motion Neuro: Denies: headache(s), numbness in extremities, weakness in extremities, sensory changes, lack of coordination, difficulty walking, frequent falls, dizziness, vertigo, confusion, Slurred speech present, difficulty communicating thoughts or seizure-like activity Psych: Denies: anxiety, depression, mood swings, panic attacks, hopelessness or irritability Endo: Denies: polyuria, polydipsia, tired all the time, cold intolerance, exc essive sweating, flushing or heat intolerance Sebastien/Lymph: Denies: easy bruising or easy bleeding All/Imm: Denies: tongue swelling, facial swelling or acute wheezing Medications/Allergies Home Medications Medication Instructions Recorded Confirmed Last Taken Type ascorbate calcium (vitamin C) 500 2,000 mg PO BID tab 08/30/19 09/20/21 Unknown History mg tablet cholecalciferol (vitamin D3) 125 125 mcg PO QAM 08/30/19 09/20/21 Unknown History mcg (5,000 unit) capsule fluticasone propionate 50 2 spray INTRANASAL DAILY PRN 08/30/19 09/20/21 Unknown History mcg/actuation nasal spray,suspension tamsulosin 0.4 mg capsule (Flomax) 0.4 mg PO BEDTIME 08/30/19 09/20/21 09/11/21 History med on hold losartan 50 mg tablet 50 mg PO QAM tab 10/03/20 09/20/21 09/19/21 History nitroglycerin 0.4 mg sublingual 0.4 mg SUBLINGUAL Q5M PRN #25 tab 05/09/21 09/20/21 Unknown Rx tablet (Nitrostat) brimonidine 0.2 %-timolol 0.5 % 1 drp OPHTHALMIC (EYE) BID #15 ml 08/23/21 09/20/21 09/20/21 Rx eye drops (Combigan) Magnesium Citrate Powder 1 tsp PO QPM 09/20/21 09/20/21 09/19/21 History aspirin 81 mg tablet,delayed 81 mg PO QPM 09/20/21 09/20/21 09/19/21 History release bimatoprost 0.01 % eye drops 1 drp OPHTHALMIC (EYE) QPM 09/20/21 09/20/21 09/18/21 History (Lumigan) epinephrine 0.3 mg/0.3 mL 0.3 mg IM . DIRECTED PRN 09/20/21 09/20/21 Unknown History injection, auto-injector (EpiPen 2-Jose Angel) hydrocodone 10 mg-acetaminophen 1 tab PO 5XD PRN 09/20/21 09/20/21 09/20/21 07:30 History 325 mg tablet methylsulfonylmethane 500 mg 500 mg PO QAM 09/20/21 09/20/21 Unknown History capsule Allergies Allergy/AdvReac Type Severity Reaction Status Date / Time clopidogrel [From Plavix] Allergy Severe ALGY-Rash Verified 09/20/21 14:35 oxycodone Allergy Severe Unknown Verified 09/20/21 14:35 Btvlhxc-JCU-XyJ Reductase Allergy Severe Unknown Verified 09/20/21 14:35 Inhibitor [Nabjpku-Qby-Xes Reductase Inhibitor] venom-honey bee Allergy Severe ALGY-Anaphy Verified 09/20/21 14:35 laxis influenza virus vaccine, Allergy Unknown Unknown Verified 09/20/21 14:35 specific simvastatin AdvReac Intermediate ADR-Muscle Verified 09/20/21 14:35 Pain PFSH Acute PFSH: Medical History (Updated 09/20/21 @ 15:17 by Lacho Stinson MD) Aortic stenosis, mild ASHD (arteriosclerotic heart disease) BPH (benign prostatic hyperplasia) DJD (degenerative joint disease), lumbar Dyslipidemia GERD (gastroesophageal reflux disease) Hypertension Myocardial infarction ONEIL (obstructive sleep apnea) Surgical History (Updated 09/20/21 @ 15:17 by Lacho Stinson MD) Previous back surgery S/P appendectomy S/P carpal tunnel release S/P knee replacement S/P PTCA (percutaneous transluminal coronary angioplasty) Family History Father CAD (coronary artery disease) Mother CHF (congestive heart failure) Brother CAD (coronary artery disease) Myocardial infarction Social History Smoking and tobacco status: former smoker Alcohol intake: never Household members: spouse Marital status: service: No Current occupational status: retired Vitals/I&O/Wt Last Vital Signs Temp 97.6 F 09/20/21 13:22 Pulse 48 L 09/20/21 13:22 Resp 17 09/20/21 13:22 BP 163/125 09/20/21 13:22 Pulse Ox 94 09/20/21 13:22 Weight last 48 hrs Weight 77.111 kg Physical Exam Narrative: General: No acute distress, AO x3, mildly dehydrated HEENT: PERRLA, pupils bilaterally equal and reactive Chest: Normal vesicular breath sounds, no added sounds, equal good air entry bilaterally CVS: S1-S2 regular, bradycardia, ejection systolic murmur 2/6 in aortic area, no gallops, no rubs Abdomen: Soft, nontender, no organomegaly, bowel sounds present Neuro: No focal deficits, no facial deformity, AO x3, power 5/5 in all limbs Data : 09/20/21 14:07 09/20/21 14:07 A&P Assessment and plan (1) Pre-syncope: Status: Acute (2) Third degree heart block: Status: Acute (3) ASHD (arteriosclerotic heart disease): Status: Acute (4) Aortic stenosis, mild: Status: Acute (5) Hypertension: Status: Acute (6) Dyslipidemia: Status: Acute (7) ONEIL (obstructive sleep apnea): Status: Acute Plan Presyncope secondary to heart block: In and out of first degree to complete heart block. Will have to rule out ischemic cause. As per the patient last cardiac stress test a year ago. In the system last report available is from 2018 which was negative for acute ischemia. Echocardiogram done on 08/06 shows an EF 55 to 60%, mild to moderate aortic stenosis with calculated aortic valve area of 1.13, mild TR. Cycle troponin, check lipid panel, A1c. Continue with aspirin. Will start on statin as per lipid panel. Telemetry. TSH recently checked in a month within normal limits. Patient is not on any AV cedric or beta-adelaide. Medical reconciliation done. Will consult cardiology for further recommendation and possible pacemaker implantation. Admit to CSU with telemetry, pacer pads and atropine at bedside. Hypertension: Goal blood pressure less than 140/90 mmHg. Blood pressure mildly elevated. For now continue with home dose of losartan, Flomax. Will uptitrate medications accordingly. Obstructive sleep apnea Mild to moderate aortic stenosis. Check iron panel, lipid panel, MRSA swab, magnesium, phosphorus, INR. CODE STATUS: Discussed in detail with patient and his family. Patient states if his time has come to just let him go. Limited resuscitation to medication per ACLS protocol. Protonix for PUD prophylaxis. Heparin 5000 every 8 hourly for DVT prophylaxis Attestations Medical Necessity Statement*: Admission for more than 2 midnights for management of presyncope secondary 3 degree heart block requiring possible pacemaker implantation after ruling out CAD Time Spent in Patient Care: Greater than 35 minutes Coding Level of Care Code Acute [employer]ording [employer] Internship for [facility] Fwd Diagnoses Third degree heart block I44.2 Aortic stenosis, mild I35.0 Hypertension I10 Pre-syncope R55 ASHD (arteriosclerotic heart disease) I25.10 Dyslipidemia E78.5 ONEIL (obstructive sleep apnea) G47.33
[2021-09-20] MEDS: losartan 50 mg Tablet PO (15:24)
--- NOTE | 2021-09-20 16:09 | ECG_ITS ---
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 Measurements Intervals [place] Rate: 46 P: 85 MD: 243 QRS: 16 QRSD: 90 T: 16 QT: 396 QTc: 347 Interpretive Statements SINUS BRADYCARDIA WITH FIRST DEGREE AV BLOCK POSSIBLE ANTERIOR MYOCARDIAL INFARCTION , PROBABLY OLD [30 ms Q WAVE IN V3/V4, OR R < 0.2 mV IN V4] INTERPRETATION BASED ON A DEFAULT AGE OF 40 YEARS Compared to ECG 08/23/2021 20:01:21 Myocardial infarct finding now present Sinus rhythm no longer present Electronically Signed On 09-20-2021 20:19:55 CDT by Stevie Dale M.D. [id number]
[2021-09-20] MEDS: heparin 5,000 unit/mL INJ 1 mL 5000 UNIT SUBCUT (16:43)
--- NOTE | 2021-09-20 17:18 | P.CONIM_ITS ---
Providers/Reason For Consult Consulting Physician/Specialty*: DEENA Dale MD/. cardiology Reason for Consult*: Patient with bradycardia and prolonged pauses on the event monitor Requesting Physician: Dr. Stinson Attending Physician: Lacho Stinson MD Primary Care Provider: Selvin Canela MD History of Present Illness History of Present Illness Elvis Paiz is a 86 year old male with a history of coronary disease, high blood pressure and dyslipidemia, he is present with complaints of dizziness for the last 1 month. He was found to have pauses of more than 3 seconds on the event monitor. He is admitted to hospital for further evaluation management. This patient with a history of coronary disease, status post multiple PCI's, apparently has been in his baseline state of health up until 6 weeks ago when he started having episodes or dizziness. He was found to be bradycardic with a heart rate in the 40s. He was taken off metoprolol approximately a month ago. However the patient continues to have episodes of dizziness. The dizziness does not seem to be correlating with the slow heartbeat all the time. He had 2 episodes of dizziness today around 10:00 while he was in a restaurant. Apparently the event monitor telemetry did not show any bradycardic events at that time. He took a nap after coming from the restaurant and woke up around noon. Initially he put CPAP when he got to sleep. But he was not using the CPAP this morning, when he took the nap. He was found to have couple of 3.4- second pauses around 11:40 AM. On close examination, the patient was found to be in second-degree type I AV block at that time. He had several event monitor telemetry prior to this. The lowest heart rate recorded was in the upper 40s. According to his , the patient walks every morning uphill to his barn to feed animals. By the time he gets back to the house he was found to be very tired. His heart rate will be in the 40s and the blood pressure in the low 100s or upper 90s. He has no chest pain at that time. He mainly complains of fatigue and some shortness of breath. He has episodes of dizziness almost every day. There is no definite correlation with heart rate or blood pressure with these spells. His blood pressure fluctuates a lot. Quite often, the systolic blood pressure goes up into the 200s. This is especially so since he was taken off the beta-adelaide a month ago. He denies any fever or chills. No cough. No other specific complaints. Never had any syncopal episodes Review of Systems Narrative: CONSTITUTIONAL: No fever or chills. EYES: No blurring of vision or other visual disturbances lately. ENT: Patient has some ringing in the ears and also her left ear pain. Was evaluated by ENT in the past CARDIOVASCULAR: As mentioned above. RESPIRATORY: No significant cough. GASTROINTESTINAL: No hematemesis or melena. GENITOURINARY: No dysuria or hematuria. INTEGUMENTARY: No skin rashes or history of skin cancer. NEURO: Patient has been having episodes of dizziness and vertiginous symptoms. Also has chronic headache. PSYCHIATRIC: No history of psychosis or major depression. HEMATOLOGIC: No bleeding disorders or significant anemia. ENDOCRINE: No history of polyuria or polydipsia. MUSCULOSKELETAL: Patient had multiple orthopedic surgeries ALLERGY/IMMUNOLOGY: As mentioned above. Medications/Allergies Home Medications Medication Instructions Recorded Confirmed Last Taken Type ascorbate calcium (vitamin C) 500 2,000 mg PO BID tab 08/30/19 09/20/21 Unknown History mg tablet cholecalciferol (vitamin D3) 125 125 mcg PO QAM 08/30/19 09/20/21 Unknown History mcg (5,000 unit) capsule fluticasone propionate 50 2 spray INTRANASAL DAILY PRN 08/30/19 09/20/21 Unknown History mcg/actuation nasal spray,suspension tamsulosin 0.4 mg capsule (Flomax) 0.4 mg PO BEDTIME 08/30/19 09/20/21 09/11/21 History med on hold losartan 50 mg tablet 50 mg PO QAM tab 10/03/20 09/20/21 09/19/21 History nitroglycerin 0.4 mg sublingual 0.4 mg SUBLINGUAL Q5M PRN #25 tab 05/09/21 09/20/21 Unknown Rx tablet (Nitrostat) brimonidine 0.2 %-timolol 0.5 % 1 drp OPHTHALMIC (EYE) BID #15 ml 08/23/21 09/20/21 09/20/21 Rx eye drops (Combigan) Magnesium Citrate Powder 1 tsp PO QPM 09/20/21 09/20/21 09/19/21 History aspirin 81 mg tablet,delayed 81 mg PO QPM 09/20/21 09/20/21 09/19/21 History release bimatoprost 0.01 % eye drops 1 drp OPHTHALMIC (EYE) QPM 09/20/21 09/20/21 09/18/21 History (Lumigan) epinephrine 0.3 mg/0.3 mL 0.3 mg IM . DIRECTED PRN 09/20/21 09/20/21 Unknown History injection, auto-injector (EpiPen 2-Jose Angel) hydrocodone 10 mg-acetaminophen 1 tab PO 5XD PRN 09/20/21 09/20/21 09/20/21 07:30 History 325 mg tablet methylsulfonylmethane 500 mg 500 mg PO QAM 09/20/21 09/20/21 Unknown History capsule Allergies Allergy/AdvReac Type Severity Reaction Status Date / Time clopidogrel [From Plavix] Allergy Severe ALGY-Rash Verified 09/20/21 14:35 oxycodone Allergy Severe Unknown Verified 09/20/21 14:35 Iwzluvn-MRW-SvI Reductase Allergy Severe Unknown Verified 09/20/21 14:35 Inhibitor [Gdgywpi-Pyh-Nbu Reductase Inhibitor] venom-honey bee Allergy Severe ALGY-Anaphy Verified 09/20/21 14:35 laxis influenza virus vaccine, Allergy Unknown Unknown Verified 09/20/21 14:35 specific simvastatin AdvReac Intermediate ADR-Muscle Verified 09/20/21 14:35 Pain Current Medications Generic Name Dose Route Start Last Admin Trade Name Freq PRN Reason Stop Dose Admin Heparin Sodium (Porcine) 5,000 unit 09/20/21 15:30 09/20/21 16:43 Heparin 5,000 Unit/Ml Inj 1 Ml SUBCUT 5,000 unit Q12H ROSSY Administration Losartan Potassium 50 mg 09/20/21 15:00 09/20/21 15:24 Losartan 50 Mg Tablet PO 50 mg DAILY ROSSY Administration PFSH Acute PFSH: Medical History Aortic stenosis, mild ASHD (arteriosclerotic heart disease) BPH (benign prostatic hyperplasia) DJD (degenerative joint disease), lumbar Dyslipidemia GERD (gastroesophageal reflux disease) Hypertension Myocardial infarction ONEIL (obstructive sleep apnea) Surgical History Previous back surgery S/P appendectomy S/P carpal tunnel release S/P knee replacement S/P PTCA (percutaneous transluminal coronary angioplasty) Family History Father CAD (coronary artery disease) Mother CHF (congestive heart failure) Brother CAD (coronary artery disease) Myocardial infarction Social History Smoking and tobacco status: former smoker Alcohol intake: never Household members: spouse Marital status: service: No Current occupational status: retired Vitals/I&O/Wt Last Vital Signs Temp 98.0 F 09/20/21 16:38 Pulse 48 L 09/20/21 16:38 Resp 16 09/20/21 16:38 BP 181/90 09/20/21 16:38 Pulse Ox 98 09/20/21 16:38 Weight last 48 hrs Weight 170 lb Physical Exam Narrative: GENERAL: The patient is alert and oriented times three. Not in any acute distress. HEENT: No significant pallor, icterus or lymphadenopathy. The pupils are symmetrical.. Oral cavity: There are no mucous membrane lesions. Funduscopic examination: The fundus is not visualized. NECK: Trachea appears to be central. No masses noted. No JVD or thyromegaly appreciated. No carotid bruit. RESPIRATORY: Chest is symmetrical. No intercostals muscle retraction or any accessory muscle activation. There is no chest wall tenderness. Breath sounds are heard bilaterally. No rales or rhonchi heard. No evidence of any consolidation. BREASTS: Deferred. HEART: The PMI could not be palpated no palpable precordial events. S1 and S2 are normal. No S3 or S4 heard. No pericardial rub or any click heard. Ejection systolic murmur grade 4/6 in the aortic area. No diastolic murmurs. ABDOMEN: No vessel pulsations or distention. No tenderness. No organomegaly appreciated. No abdominal bruit. Bowel sounds are normally heard. : Deferred. RECTAL: Deferred. LYMPHATIC: No lymphadenopathy noted in the neck or groin. EXTREMITIES: No edema or cyanosis. No clubbing. The pulses are symmetrical bilaterally. The radial, femoral, dorsalis pedis and the posterior tibial pulses are palpated and found to be in good volume and amplitude. MUSCULOSKELETAL: No acute joint deformities or swelling SKIN: There are no significant scars or skin rash noted. NEUROPSYCHIATRIC: The patient is alert and oriented x3. Appears to be in a good mood. The higher functions are grossly within normal limits. No tremors or rigidity noted. Data : 09/20/21 14:07 09/20/21 14:07 Other Labs: Laboratory Last Values WBC 9.6 10^3/uL (4.0-10.0) 09/20/21 14:07 RBC 4.68 10^6/uL (4.1-5.3) 09/20/21 14:07 Hgb 13.9 g/dL (11.7-16.6) 09/20/21 14:07 Hct 43.3 % (42.0-52.0) 09/20/21 14:07 MCV 92.5 fl (80-94) 09/20/21 14:07 MCH 29.7 pg (28.0-34.0) 09/20/21 14:07 MCHC 32.1 g/dL (30.0-36.0) 09/20/21 14:07 RDW 13.6 % (12.1-15.1) 09/20/21 14:07 Plt Count 222 10^3/cmm (130-400) 09/20/21 14:07 MPV 11.1 fL (7.4-10.4) H 09/20/21 14:07 Neut % (Auto) 57.0 % 09/20/21 14:07 Lymph % (Auto) 28.9 % 09/20/21 14:07 Branch % (Auto) 11.0 % 09/20/21 14:07 Eos % (Auto) 2.5 % 09/20/21 14:07 Baso % (Auto) 0.3 % 09/20/21 14:07 Neut # (Auto) 5.48 10^3/uL (1.8-7.7) 09/20/21 14:07 Lymph # (Auto) 2.8 10^3/uL (0.8-4.8) 09/20/21 14:07 Branch # (Auto) 1.1 10^3/uL (0.2-0.9) H 09/20/21 14:07 Eos # (Auto) 0.2 10^3/uL (0.0-0.8) 09/20/21 14:07 Baso # (Auto) 0.0 10^3/uL (0.0-0.1) 09/20/21 14:07 Nucleated RBC % (auto) 0 % 09/20/21 14:07 Nucleated RBCs # 0.0 /100WBC 09/20/21 14:07 Sodium 140 mmol/L (136-145) 09/20/21 14:07 Potassium 4.3 mmol/L (3.5-5.1) 09/20/21 14:07 Chloride 104 mmol/L (98-107) 09/20/21 14:07 Carbon Dioxide 28 mmol/L (22-29) 09/20/21 14:07 Anion Gap 12.3 (5-19) 09/20/21 14:07 BUN 17 mg/dL (8-23) 09/20/21 14:07 Creatinine 0.8 mg/dL (0.7-1.2) 09/20/21 14:07 GFR Calculation Not Reportable 09/20/21 14:07 Glucose 83 mg/dL (65-115) 09/20/21 14:07 Calculated Osmolality 291 mOsm/kg (285-295) 09/20/21 14:07 Calcium 10.2 mg/dL (8.5-10.5) 09/20/21 14:07 Total Bilirubin 0.2 mg/dL (0.15-1.2) 09/20/21 14:07 AST 17 U/L (0-40) 09/20/21 14:07 ALT 13 U/L (0-41) 09/20/21 14:07 Alkaline Phosphatase 136 IU/L (40-130) H 09/20/21 14:07 Total Protein 7.3 g/dL (6.6-8.7) 09/20/21 14:07 Albumin 3.8 g/dL (3.5-5.2) 09/20/21 14:07 Globulin 3.5 g/dL (1.3-4.6) 09/20/21 14:07 Echo: My impression: Echocardiogram on 07/20/2021 LV systolic function is normla with EF of 55-60% ?Grade II diastolic dysfunction ?Aortic valve is thickened and calcified. Mild to moderate aortic ?stenosis with aortic valve area of 1.13cm2 and mean gradient ?across the aortic valve of 12.3mmHg. ?Mild tricuspid regurgitation ?No comparison studies are available A&P Assessment and plan (1) Second degree type I atrioventricular block: Patient had 2 episodes of pauses of more than 3 seconds around 1145 today based on the event monitor recordings. According to the patient and his family, he was just waking up from a nap around that time. He had a dizzy spell 2 hours prior to this while he was still in a restaurant. There is no documented bradyarrhythmia on the monitor at that time. Status: Acute (2) Symptomatic bradycardia: Patient has been having episodes of sinus bradycardia with a heart rate in the 40s. After moderate activities, his heart rate still stays in the upper 40s. Features as a history of sinus node dysfunction/chronotropic incompetence. Status: Acute (3) ASHD (arteriosclerotic heart disease): Patient has a history of coronary disease and multiple PCI's. He had a recent coronary evaluation. Denies any chest pain or chest tightness. No unusual shortness of breath. Status: Acute (4) Aortic stenosis, mild: Aortic valve stenosis based on the echocardiogram was found to be moderate. At this point, the patient may not require any specific intervention. Status: Acute (5) Dyslipidemia: Patient is not on any statin drugs. Reasons are not known. Probable lipid profile and then decide on this. Status: Acute (6) Accelerated hypertension: Patient is systolic blood pressure is in the 200 range. I may start him on hydralazine 50 mg p.o. every 8 hours. Blood pressure needs to be closely monitored on telemetry. Status: Acute Plan Patient and the patient's clinical progress and the results of the above, further recommendations will be made. He will be watched closely for any high degree AV block, especially while he is awake. Patient may require a permanent pacer implantation sometime down the line. But I do not see any urgency in doing right at this time. Based on the patient's clinical progress, further recommendations will be made. Thank you for the opportunity to evaluate this patient make these recommendations. Consult Attestations Medical Necessity Statement: Patient requires continued hospital stay for close monitoring and further management Coding Level of Care Code Acute Caustic Mixer for [facility] Fwd History Detailed Exam Detailed Medical Decision Making High Complexity Diagnoses Aortic stenosis, mild I35.0 Symptomatic bradycardia R00.1 Second degree type I atrioventricular block I44.1 ASHD (arteriosclerotic heart disease) I25.10 Dyslipidemia E78.5 Accelerated hypertension I10
[2021-09-20 17:36] LABS: Troponin 5 2HR 13.32 ng/L (0-15)
--- NOTE | 2021-09-20 18:09 | ECG_ITS ---
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 Measurements Intervals [place] Rate: 54 P: 10 [place]: 180 QRS: -3 QRSD: 100 T: -4 QT: 403 QTc: 383 Interpretive Statements SINUS BRADYCARDIA MODERATE VOLTAGE CRITERIA FOR LVH, CONSIDER NORMAL VARIANT [MEETS CRITERIA IN ONE OF: R(aVL), S(V1), R(V5), R(V5/V6)+S(V1)] Compared to ECG 09/20/2021 13:27:38 First degree AV block no longer present Myocardial infarct finding no longer present Electronically Signed On 09-20-2021 20:27:55 CDT by Stevie Dale M.D. [id number]
[2021-09-20 18:22] LABS: Iron 66 ug/dL (59-158); Percent Saturation 25.5 % (20-50); Total Iron Binding Capacity 258 mcg/dl; Unsaturated Iron Binding 192 ug/dL (112-347)
[2021-09-20 18:24] LABS: Troponin(5th) Baseline 16 ng/L (0-15)
[2021-09-20] MEDS: aspirin 81 mg EC Tablet PO (18:25)
[2021-09-20] MEDS: hyDRALAzine 20 mg/mL INJ 1 mL 5 MG IVP (18:29)
[2021-09-20 18:38] LABS: Add Urine Microscopic? NO; Charge for UA Resulting for Rev
--- NOTE | 2021-09-20 18:41 | PC.NURSE ---
admitted into room 106 from er at 1615.report received.pt is alert and oriented x 4.denies pain.sr w/1sr degree block on monitor.atropine and pacer pads placed at bedside.oriented to room environment.instructed to notify staff for dizziness,sob,cp..or for any concerns at all.pt verb understanding of instructions
[2021-09-20 18:57] LABS: Bilirubin Urine Neg (Negative); Blood Urine Neg (Negative); Glucose Urine UA Norm (Normal); Ketones Urine Negative (Negative); Leukocyte Esterase Urine Negative (Negative); Nitrate Urine Negative (Negative); Protein Urine Neg (Negative); Urine Appearance Clear (CLEAR); Urine Color Yellow (Yellow); Urobilinogen Urine Norm (Negative); pH Urine 7 (5-7)
[2021-09-20 21:09] LABS: Troponin 5 6HR 12.45 ng/L (0-15)
[2021-09-20] MEDS: tamsulosin 0.4 mg Capsule PO (22:08)
--- NOTE | 2021-09-20 22:09 | ECG_ITS ---
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 Measurements Intervals [place] Rate: 51 P: 84 [place]: 216 QRS: 17 QRSD: 99 T: 18 QT: 405 QTc: 376 Interpretive Statements SINUS BRADYCARDIA WITH FIRST DEGREE AV BLOCK Compared to ECG 09/20/2021 17:52:27 First degree AV block now present Electronically Signed On 09-21-2021 22:01:22 CDT by Stevie Dale M.D. [id number]
[2021-09-21] VITALS (57 sets, daily range): BP systolic 133–176; BP diastolic 61–87; PULSE 50–72; RESP 2–31; O2SAT 95–96
[2021-09-21] MEDS: hyDRALAzine 20 mg/mL INJ 1 mL 5 MG IVP (00:26)
[2021-09-21] MEDS: heparin 5,000 unit/mL INJ 1 mL 5000 UNIT SUBCUT (03:47)
--- NOTE | 2021-09-21 04:22 | PC.NURSE ---
Patient stated that he felt dizzy when he sat up. This occurred approximately two hours after PRN IV Hydralazine was given. No changes noted to rhythm or rate on monitor when dizziness occurred. Throughout shift, patient's heart rate ranging 45-55 in first degree block.
[2021-09-21 04:58] LABS: Basophils % 0.4 %; Eosinophils # 0.3 10^3/uL (0.0-0.8); Eosinophils % 2.8 %; Hematocrit 43.9 % (42.0-52.0); Hemoglobin 14.2 g/dL (11.7-16.6); Lymphocytes # 2.4 10^3/uL (0.8-4.8); Mean Corpuscular HGB Conc 32.3 g/dL (30.0-36.0); Mean Corpuscular Hemoglobin 29.8 pg (28.0-34.0); Mean Corpuscular Volume 92.2 fl (80-94); Monocytes % 10.8 %; Neutrophils # 5.23 10^3/uL (1.8-7.7); Neutrophils % 58.7 %; Nucleated Red Blood Cells % 0 %; Platelet Count 217 10^3/cmm (130-400); Red Blood Count 4.76 10^6/uL (4.1-5.3); Red Cell Distribution Width 13.5 % (12.1-15.1); White Blood Count 8.9 10^3/uL (4.0-10.0)
[2021-09-21 05:17] LABS: INR 1.08 (0.8-1.2)
[2021-09-21 05:26] LABS: Alanine Aminotransferase 13 U/L (0-41); Albumin Level 3.5 g/dL (3.5-5.2); Alkaline Phosphatase 127 IU/L (40-130); Aspartate Amino Transferase 16 U/L (0-40); Blood Urea Nitrogen 16 mg/dL (8-23); Carbon Dioxide 25 mmol/L (22-29); Chloride 106 mmol/L (98-107); Chol HDL Ratio 7.46 mg/dL (1.0-5.00); Cholesterol 276 mg/dL (0-200); Globulin 3.5 g/dL (1.3-4.6); Glucose 107 mg/dL (65-115); HDL Cholesterol 37 mg/dL (60-100); LDL Cholesterol Calculated 196 mg/dL (50-129); Magnesium 2.1 mg/dL (1.7-2.3); Osmolality Calculated 290 mOsm/kg (285-295); Phosphorus 2.3 mg/dL (2.5-4.5); Sodium 139 mmol/L (136-145); Total Bilirubin 0.2 mg/dL (0.15-1.2); Triglycerides 215 mg/dL (0-150); VLDL Cholestrol Calculation 43 mg/dL (0-30)
[2021-09-21] MEDS: losartan 50 mg Tablet PO (09:05)
[2021-09-21] MEDS: HYDROcodone-acetaminophen 10-325 mg Tablet 1 TAB PO (09:54)
[2021-09-21] MEDS: amlodipine 5 mg Tablet PO (12:05)
--- NOTE | 2021-09-21 13:20 | P.DS_ITS ---
Discharge Providers Date of Admission: 09/20/21 14:45 Date of Discharge: September 21, 2021 Attending Provider at Admission: Lacho Stinson MD Attending Provider at Discharge: Lacho Stinson MD Consults: Cardiology: Dr. Dale Primary Care Provider: Selvin Canela MD Diagnoses at Discharge Discharge Diagnosis (1) Second degree type I atrioventricular block: Status: Acute (2) Symptomatic bradycardia: Status: Acute (3) ASHD (arteriosclerotic heart disease): Status: Acute (4) Aortic stenosis, mild: Status: Acute (5) Dyslipidemia: Status: Acute (6) Accelerated hypertension: Status: Acute Reason for Visit Reason for Visit: sent to ER per Dr. Winters [facility] Course Hospital Course Elvis Paiz is a 86 year old male with a history of coronary disease, high blood pressure and dyslipidemia, he is present with complaints of dizziness for the last 1 month.? He was found to have pauses of more than 3 seconds on the event monitor.? He is admitted to hospital for further evaluation management. This patient with a history of coronary disease, status post multiple PCI's, apparently has been in his baseline state of health up until 6 weeks ago when he started having episodes or dizziness.? He was found to be bradycardic with a heart rate in the 40s.? He was taken off metoprolol approximately a month ago.? However the patient continues to have episodes of dizziness.? The dizziness does not seem to be correlating with the slow heartbeat all the time.? He had 2 episodes of dizziness today around 10:00 while he was in a restaurant.? Apparently the event monitor telemetry did not show any bradycardic events at that time.? He took a nap after coming from the restaurant and woke up around noon.? Initially he put CPAP when he got to sleep.? But he was not using the CPAP this morning, when he took the nap.? He was found to have couple of 3.4- second pauses around 11:40 AM.? On close examination, the patient was found to be in second-degree type I AV block at that time. He had several event monitor telemetry prior to this.? The lowest heart rate recorded was in the upper 40s. According to his , the patient walks every morning uphill to his barn to feed animals.? By the time he gets back to the house he was found to be very tired.? His heart rate will be in the 40s and the blood pressure? in the low 100s or upper 90s.? He has no chest pain at that time.? He mainly complains of fatigue and some shortness of breath. He has episodes of dizziness almost every day.? There is no definite correlation with heart rate or blood pressure with these spells.? His blood pressure fluctuates a lot.? Quite often, the systolic blood pressure goes up into the 200s.? This is especially so since he was taken off the beta-adelaide a month ago. He denies any fever or chills.? No cough.? No other specific complaints.? Never had any syncopal episodes. Patient admitted for further monitoring and management to cardiac stepdown unit. Cardiology was consulted. During hospitalization patient did not have any further episodes of bradycardia or heart block to his heart rate remained in low to high 50s without any event of sinus pauses. Patient did not have any further episodes of dizziness both at rest and on ambulation. He was found to have elevated blood pressures for which his antihypertensives were adjusted. As per cardiology patient does have signs of sinus node dysfunction/chronotropic incompetence and may benefit from permanent pacemaker implantation going forward if he is found to be bradycardic especially with exertion. Patient is in need of exercise stress test to document for chronotropic Incon incompetence. As patient was asymptomatic, not in complete heart block it was thought by cardiology that patient does not need pacemaker implantation as urgency hands is been discharged hemodynamically stable condition on losartan and amlodipine with advised to follow-up with Dr. Winters within next 1 week. Danger signs were discussed in detail with patient and his family. All the questions were answered. Physical Exam Narrative: General: No acute distress, AO x3, HEENT: PERRLA, pupils bilaterally equal and reactive Chest: Normal vesicular breath sounds, no added sounds, equal good air entry bilaterally CVS: S1-S2 regular, bradycardia, ejection systolic murmur 2/6 in aortic area, no gallops, no rubs Abdomen: Soft, nontender, no organomegaly, bowel sounds present Neuro: No focal deficits, no facial deformity, AO x3, power 5/5 in all limbs Discharge Data Studies Completed and Pending Completed Studies During Hospitalization Category Date Time Status XR chest 1V portable [id number] Urgent Exams 09/20/21 13:51 Completed Radiology Impressions Chest X-Ray 09/20/21 13:51 Impression: No acute cardiopulmonary disease is noted. Laboratory Results WBC 8.9 10^3/uL (4.0-10.0) 09/21/21 04:30 RBC 4.76 10^6/uL (4.1-5.3) 09/21/21 04:30 Hgb 14.2 g/dL (11.7-16.6) 09/21/21 04:30 Hct 43.9 % (42.0-52.0) 09/21/21 04:30 MCV 92.2 fl (80-94) 09/21/21 04:30 MCH 29.8 pg (28.0-34.0) 09/21/21 04:30 MCHC 32.3 g/dL (30.0-36.0) 09/21/21 04:30 RDW 13.5 % (12.1-15.1) 09/21/21 04:30 Plt Count 217 10^3/cmm (130-400) 09/21/21 04:30 MPV 11.0 fL (7.4-10.4) H 09/21/21 04:30 Neut % (Auto) 58.7 % 09/21/21 04:30 Lymph % (Auto) 27.0 % 09/21/21 04:30 [place] % (Auto) 10.8 % 09/21/21 04:30 Eos % (Auto) 2.8 % 09/21/21 04:30 Baso % (Auto) 0.4 % 09/21/21 04:30 Neut # (Auto) 5.23 10^3/uL (1.8-7.7) 09/21/21 04:30 Lymph # (Auto) 2.4 10^3/uL (0.8-4.8) 09/21/21 04:30 [place] # (Auto) 1.0 10^3/uL (0.2-0.9) H 09/21/21 04:30 Eos # (Auto) 0.3 10^3/uL (0.0-0.8) 09/21/21 04:30 Baso # (Auto) 0.0 10^3/uL (0.0-0.1) 09/21/21 04:30 Nucleated RBC % (auto) 0 % 09/21/21 04:30 Nucleated RBCs # 0.0 /100WBC 09/21/21 04:30 PT 14.30 SECONDS (12.1-14.9) 09/21/21 04:30 INR 1.08 (0.8-1.2) 09/21/21 04:30 Sodium 139 mmol/L (136-145) 09/21/21 04:30 Potassium 4.0 mmol/L (3.5-5.1) 09/21/21 04:30 Chloride 106 mmol/L (98-107) 09/21/21 04:30 Carbon Dioxide 25 mmol/L (22-29) 09/21/21 04:30 Anion Gap 12.0 (5-19) 09/21/21 04:30 BUN 16 mg/dL (8-23) 09/21/21 04:30 Creatinine 0.7 mg/dL (0.7-1.2) 09/21/21 04:30 GFR Calculation Not Reportable 09/21/21 04:30 Glucose 107 mg/dL (65-115) 09/21/21 04:30 Calculated Osmolality 290 mOsm/kg (285-295) 09/21/21 04:30 Calcium 10.0 mg/dL (8.5-10.5) 09/21/21 04:30 Phosphorus 2.3 mg/dL (2.5-4.5) L 09/21/21 04:30 Magnesium 2.1 mg/dL (1.7-2.3) 09/21/21 04:30 Iron 66 ug/dL (59-158) 09/20/21 14:07 TIBC 258 mcg/dl 09/20/21 14:07 % Saturation 25.5 % (20-50) 09/20/21 14:07 Unsat Iron Binding 192 ug/dL (112-347) 09/20/21 14:07 Total Bilirubin 0.2 mg/dL (0.15-1.2) 09/21/21 04:30 AST 16 U/L (0-40) 09/21/21 04:30 ALT 13 U/L (0-41) 09/21/21 04:30 Alkaline Phosphatase 127 IU/L (40-130) 09/21/21 04:30 Troponin T Baseline 16 ng/L (0-15) H 09/20/21 14:07 Troponin T 120 Minute 13.32 ng/L (0-15) 09/20/21 16:26 Delta Troponin T Not Reportable 09/20/21 16:26 Troponin T Hi Sens 6Hr 12.45 ng/L (0-15) 09/20/21 20:36 Troponin T Hi Sens 6Hr Delta Not Reportable 09/20/21 20:36 Total Protein 7.0 g/dL (6.6-8.7) 09/21/21 04:30 Albumin 3.5 g/dL (3.5-5.2) 09/21/21 04:30 Globulin 3.5 g/dL (1.3-4.6) 09/21/21 04:30 Triglycerides 215 mg/dL (0-150) H 09/21/21 04:30 Cholesterol 276 mg/dL (0-200) H 09/21/21 04:30 LDL Cholesterol, Calc 196 mg/dL (50-129) H 09/21/21 04:30 Total VLDL Cholesterol 43 mg/dL (0-30) H 09/21/21 04:30 HDL Cholesterol 37 mg/dL (60-100) L 09/21/21 04:30 Cholesterol/HDL Ratio 7.46 mg/dL (1.0-5.00) H 09/21/21 04:30 Urine Color Yellow (Yellow) 09/20/21 18:25 Urine Appearance Clear (CLEAR) 09/20/21 18:25 Urine pH 7 (5-7) 09/20/21 18:25 Ur Specific [place] 1.010 (1.005-1.030) 09/20/21 18:25 Urine Protein Neg (Negative) 09/20/21 18:25 Urine Glucose (UA) Norm (Normal) 09/20/21 18:25 Urine Ketones Negative (Negative) 09/20/21 18:25 Urine Blood Neg (Negative) 09/20/21 18:25 Urine Nitrate Negative (Negative) 09/20/21 18:25 Urine Bilirubin Neg (Negative) 09/20/21 18:25 Urine Urobilinogen Norm mg/dL (Negative) 09/20/21 18:25 Ur Leukocyte Esterase Negative (Negative) 09/20/21 18:25 Vitals Last Vital Signs Temp 98.8 F 09/20/21 20:00 Pulse 58 L 09/21/21 08:00 Resp 16 09/21/21 08:00 BP 138/74 09/21/21 09:05 Pulse Ox 95 09/21/21 08:00 Discharge Plan Discharge Patient Disposition: Home Condition: Stable Prescriptions: New amlodipine 5 mg Tablet 5 mg PO DAILY Qty: 30 0RF Continued fluticasone propionate 50 mcg/actuation spray,suspension 2 spray INTRANASAL DAILY PRN (Reason: Allergy Symptoms) 0RF tamsulosin [Flomax] 0.4 mg capsule 0.4 mg PO BEDTIME 0RF ascorbate calcium (vitamin C) 500 mg tablet 2,000 mg PO BID 0RF cholecalciferol (vitamin D3) 125 mcg (5,000 unit) capsule 125 mcg PO QAM 0RF losartan 50 mg tablet 50 mg PO QAM 0RF nitroglycerin [Nitrostat] 0.4 mg tablet, sublingual 0.4 mg SUBLINGUAL Q5M PRN (Reason: chest pain) Qty: 25 2RF brimonidine-timolol [Combigan] 0.2-0.5 % drops 1 drp ophthalmic (eye) BID Qty: 15 0RF Rx Instructions: left eye hydrocodone-acetaminophen 10-325 mg tablet 1 tab PO 5XD PRN (Reason: Pain) 0RF aspirin 81 mg Tablet,Delayed Release (Dr/Ec) 81 mg PO QPM 0RF EpiPen 2-Jose Angel 0.3 mg/0.3 mL Auto-Injector 0.3 mg IM . DIRECTED PRN (Reason: Allergic Reaction) 0RF methylsulfonylmethane 500 mg Capsule 500 mg PO QAM 0RF Lumigan 0.01 % Drops 1 drp OPHTHALMIC (EYE) QPM 0RF Rx Instructions: left eye Magnesium Citrate Powder 1 tsp PO QPM 0RF Discharge Orders: Discharge Order (Routine); Ordered 09/21/21 Ordered By: Lacho Stinson Referrals: Castillo Winters M.D [Physician] - 1 week ([facility] will be calling to schedule a cardiology followup with Dr. Winters to be seen in 1 week. If you don't hear from them by Thursday afternoon, please give them a call. Thank you) Selvin Canela MD [Primary Care Provider] - 7-10 days ([facility] will be calling to schedule a hospital followup with Dr. Canela to be seen in 7 to 10 days. If you don't hear from them by Thursday afternoon, please give them a call. Thank you) Discharge Diet: Cardiac Discharge Activity: Resume usual activity and Increase activity as tolerated Patient Instructions: Amlodipine (By mouth) (Hypertenipine-2.5, Norvasc), Hypertension, Bradycardia (DC), Opioid Safety Activity Restrictions/Additional Instructions: Please continue taking losartan 50 mg daily. Amlodipine 5 mg daily has been added to your medication list. Please make sure that you stand up from laying position slowly. Try to avoid driving currently. Please follow-up with cardiology/Dr. Winters's office within next 1 week. For high cholesterol level as you are allergic to statins you should speak with your primary care's office for a medication called as Repatha. Discharge Attestations Time Spent in Discharge Care*: greater than 30 min Specific Discharge Activities: educating patient, educating and/or supporting family/caregiver, discussing with pcp/other providers, discussing with disability case manager/social workers/dc planners, documenting/other paperwork and evaluating patient/reviewing data Status at Discharge: Cognitive status at discharge: cognitively intact , Behavioral status at discharge: cooperative , Functional status at discharge: independent ambulation , Overall status at discharge: patient is back to baseline Quality Metrics Clinical Quality Measures [ No reported AMI, CVA or VTE this stay] Coding Level of Care Code Acute Chg FW DC note Diagnoses Second degree type I atrioventricular block I44.1 Symptomatic bradycardia R00.1 ASHD (arteriosclerotic heart disease) I25.10 Aortic stenosis, mild I35.0 Dyslipidemia E78.5 Accelerated hypertension I10
--- NOTE | 2021-09-21 13:38 | P.PN_ITS ---
Subjective Subjective: Patient is feeling okay. Telemetry shows sinus rhythm/bradycardia. The lowest heart rate through the night was 43 bpm. This happens around midnight. Patient has not had any sinus pauses. No symptomatic bradycardias on the monitor. He has been ambulating on telemetry without any specific symptoms. The blood pressure seems to be responding to the hydralazine. Medications: Medication Review Details: Current Medications Acetaminophen (Acetaminophen 325 Mg Tablet) 650 mg PO Q6H PRN PRN Reason: Mild/Mod Pain Or Temp >/= 101 Hydrocodone Bitart/Acetaminophen (Hydrocodone-Acetaminophen 10-325 Mg Tablet) 1 tab PO Q6H PRN PRN Reason: Pain Last Admin: 09/21/21 09:54 Dose: 1 tab Documented by: Albuterol Sulfate (Albuterol 2.5 Mg/0.5 Ml Neb) 2.5 mg INHALATION Q4H.RESPIRATORY PRN PRN Reason: SHORTNESS OF BREATH Amlodipine Besylate (Amlodipine 5 Mg Tablet) 5 mg PO DAILY [facility] Last Admin: 09/21/21 12:05 Dose: 5 mg Documented by: Aspirin (Aspirin 81 Mg Ec Tablet) 81 mg PO QPM [facility] Last Admin: 09/20/21 18:25 Dose: 81 mg Documented by: Atropine Sulfate (Atropine 0.1 Mg/Ml Syr 10 Ml) 1 mg IVP PRN PRN PRN Reason: chb Bisacodyl (Bisacodyl 5 Mg Tablet) 10 mg PO DAILY PRN; Protocol PRN Reason: Constipation (see protocol) Calcium Carbonate (Calcium Carbonate 500 Mg Chew Tablet) 1,000 mg PO Q4H PRN PRN Reason: DYSPEPSI Heparin Sodium (Porcine) (Heparin 5,000 Unit/Ml Inj 1 Ml) 5,000 unit SUBCUT Q12H [facility] Last Admin: 09/21/21 03:47 Dose: 5,000 unit Documented by: Hydralazine HCl (Hydralazine 20 Mg/Ml Inj 1 Ml) 5 mg IVP Q4H PRN PRN Reason: sbp>170/ Last Admin: 09/21/21 00:26 Dose: 5 mg Documented by: Lactulose (Lactulose Oral Liq 20 Gm/30 Ml Udc) 10 gm PO DAILY PRN; Protocol PRN Reason: Constipation (see protocol) Losartan Potassium (Losartan 50 Mg Tablet) 50 mg PO DAILY [facility] Last Admin: 09/21/21 09:05 Dose: 50 mg Documented by: Magnesium Hydroxide (Magnesium Hydroxide 30 Ml Udc) 30 ml PO DAILY PRN; Protocol PRN Reason: Constipation (see protocol) Morphine Sulfate (Morphine 4 Mg/Ml Sdv 1 Ml) 2 mg IVP Q4H PRN PRN Reason: SEVERE PAIN Ondansetron HCl (Ondansetron 2 Mg/Ml Sdv 2 Ml) 4 mg IVP Q8H PRN PRN Reason: vomiting, or N/V if npo Tamsulosin HCl (Tamsulosin 0.4 Mg Capsule) 0.4 mg PO BEDTIME ROSSY Last Admin: 09/20/21 22:08 Dose: 0.4 mg Documented by: Vitals/I&O/Wt Last Vital Signs Temp 98.8 F 09/20/21 20:00 Pulse 58 L 09/21/21 08:00 Resp 16 09/21/21 08:00 BP 138/74 09/21/21 09:05 Pulse Ox 95 09/21/21 08:00 09/20/21 09/21/21 09/21/21 22:59 06:59 14:59 Intake Total 240 / 240 240 / 240 Output Total 350 / 350 425 / 775 Balance -110 / -110 -425 / -535 240 / 240 Weight last 48 hrs Weight 178 lb Weight 170 lb Physical Exam Narrative: GENERAL: The patient is alert and oriented times three. Not in any acute distress. HEENT: No significant pallor, icterus or lymphadenopathy.Oral cavity: There are no mucous membrane lesions. NECK: Trachea appears to be central. No masses noted. No JVD or thyromegaly appreciated. No carotid bruit. RESPIRATORY: Chest is symmetrical. No intercostals muscle retraction or any accessory muscle activation. There is no chest wall tenderness. Breath sounds are heard bilaterally. No rales or rhonchi heard. No evidence of any consolidation. BREASTS: Deferred. HEART: The PMI could not be palpated no palpable precordial events. S1 and S2 are normal. No S3 or S4 heard. No pericardial rub or any click heard. Ejection systolic murmur grade 4/6 in the aortic area. No diastolic murmurs. ABDOMEN: No vessel pulsations or distention. No tenderness. No organomegaly appreciated. No abdominal bruit. Bowel sounds are normally heard. : Deferred. RECTAL: Deferred. LYMPHATIC: No lymphadenopathy noted in the neck or groin. EXTREMITIES: No edema or cyanosis. No clubbing. The pulses are palpable and fairly good volume and amplitude. MUSCULOSKELETAL: No acute joint deformities or swelling SKIN: There are no significant scars or skin rash noted. NEUROPSYCHIATRIC: The patient is alert and oriented x3. Appears to be in a good mood. The higher functions are grossly within normal limits. No tremors or rigidity noted. Data : 09/21/21 04:30 09/21/21 04:30 Micro: Microbiology 09/20/21 18:25 MRSA Culture - Final Nose A&P Assessment and plan (1) Second degree type I atrioventricular block: The patient has not had any recurrence of pulses on the monitor. Still has a heart rate in the fourth upper 40s and 50s when he lies down. The heart rate goes into the 60s has to get up and walk around. Denies any specific symptoms. Status: Acute (2) Symptomatic bradycardia: Patient has been having episodes of sinus bradycardia with a heart rate in the 40s. After moderate activities, his heart rate still stays in the upper 40s. Features as a history of sinus node dysfunction/chronotropic incompetence. Patient may benefit from a permanent pacer implantation, if he continues to be bradycardic, especially with the exertion. We may consider doing an exercise stress test to document the chronotropic incompetence. Status: Acute (3) ASHD (arteriosclerotic heart disease): Patient has a history of coronary disease and multiple PCI's. He had a recent coronary evaluation. Denies any chest pain or chest tightness. No unusual shortness of breath. May continue on the current medications. Status: Acute (4) Aortic stenosis, mild: Aortic valve stenosis based on the echocardiogram was found to be moderate. At this point, the patient may not require any specific intervention. Status: Acute (5) Dyslipidemia: Patient is not on any statin drugs. Reasons are not known. Probable lipid profile and then decide on this. Status: Acute (6) Accelerated hypertension: Currently the blood pressure seems to be under control. Systolic blood pressure was in the 130s this morning. Status: Acute Plan If the patient continues remain stable, he may be discharged home today. There is no indication for emergency pacemaker at this point. We may go ahead and do a an exercise stress test to document chronotropic incompetence. He will have his event monitor recording finished by next week. May consider a permanent pacemaker after reviewing the above. Attestations Medical Necessity Statement*: If the patient continues remain stable, he may be discharged home today. [facility] week after next week to see Dr. Winters. In the event of he developing any new symptoms, advised to contact our office. Discussed this with Dr. 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
--- NOTE | 2021-09-21 15:10 | PC.NURSE ---
discharge instructions given and explained.pt and spouse verb understanding of instructions.discharged to exit via w/c at 1500.pt's son to drive pt home
== END 2021-09-21 15:00 | disposition home or self-care (01) | DRG 310 ==
LOC: ER 15:15 → CSU 15:25
PROVIDERS: Admitting Provider Student in an Organized Health Care Education/Training Program; Emergency Provider Emergency Medicine; PCP Family Medicine; Visit Provider Student in an Organized Health Care Education/Training Program
DX: I44.1 Atrioventricular block, second degree (principal); I25.10 Atherosclerotic heart disease of native coronary artery without angina pectoris; Z95.5 Presence of coronary angioplasty implant and graft; E78.5 Hyperlipidemia, unspecified; K21.9 Gastro-esophageal reflux disease without esophagitis; I10 Essential (primary) hypertension; I25.2 Old myocardial infarction; G47.33 Obstructive sleep apnea (adult) (pediatric); Z87.891 Personal history of nicotine dependence; I35.0 Nonrheumatic aortic (valve) stenosis; Z79.891 Long term (current) use of opiate analgesic; Z79.82 Long term (current) use of aspirin
CPT/HCPCS: 36415; 71045; 80053; 80061; 81003; 83540; 83550; 83735; 84100; 84484; 85025; 85610; 87641; 93005; 96372; 96375; 99285; J0360; J1644

== ENCOUNTER → 2021-09-26 13:49 | Outpatient (BNVA) | payer MEDICARE, OTHER, SELFPAY | PROVIDERS: PCP Family Medicine; Visit Provider Family Medicine | DX: R00.1 Bradycardia, unspecified (principal); R42 Dizziness and giddiness | CPT/HCPCS: 86664; 86665 ==

== ENCOUNTER → 2021-09-27 08:47 | Outpatient (BNVA) | payer MEDICARE, OTHER, SELFPAY | PROVIDERS: PCP Family Medicine; Visit Provider Internal Medicine | DX: I25.10 Atherosclerotic heart disease of native coronary artery without angina pectoris (principal); I10 Essential (primary) hypertension; E78.5 Hyperlipidemia, unspecified; R01.1 Cardiac murmur, unspecified; I25.2 Old myocardial infarction; R55 Syncope and collapse; Z87.891 Personal history of nicotine dependence; H81.90 Unspecified disorder of vestibular function, unspecified ear; J32.0 Chronic maxillary sinusitis; J32.2 Chronic ethmoidal sinusitis; I44.1 Atrioventricular block, second degree; R00.1 Bradycardia, unspecified; I35.0 Nonrheumatic aortic (valve) stenosis | CPT/HCPCS: 99204; 99205; 99214 ==

== ENCOUNTER 2021-10-02 13:30 | Outpatient (CLI) | payer MEDICARE, OTHER, SELFPAY ==
--- NOTE | 2021-10-02 13:43 | CT_ITS ---
WS: [id number] CT ANGIOGRAM CEREBRAL ARTERIES HISTORY: CVA TECHNIQUE: Pre and postcontrast imaging through the brain. CT angiogram is performed of the cerebral arteries. During arterial injection imaging is obtained from the skull vertex to the skull base in 1. 25 mm imaging. Coronal and sagittal reformats are submitted. Additional multi planar reformats of the cerebral arteries are submitted, MIP imaging also reviewed. All CT scans at [facility] use at least one of these dose optimization techniques: automated exposure control; mA and/or kV adjustme nt per patient size (includes targeted exams where dose is matched to clinical indication); or iterat lilia reconstruction. CONTRAST: Omnipaque 300; 50 mL IV. DLP: 1957.04 mGy.cm COMPARISON: 08/23/2021 and 12/13/[address]: No acute intracranial hemorrhage. Mild to moderate bilateral cerebral atrophy an d small vessel ischemic disease. There is also moderate cerebellar atrophy. Intracranial vertebral arteries: Very heavy calcified plaque in the vertebral arteries through the fo ramen magnum. The lumen is very difficult to visualize due to the plaque. There is at least moderate if not high-grade stenosis bilaterally but greatest on the RIGHT. Basilar artery: Small caliber but patent. Intracranial Internal carotid arteries: Very heavy calcification throughout the intracranial carotid arteries but greatest towards the cavernous portions. Similar findings were noted on a prior examinat ion but the very dense calcification has progressed. The lumen is patent although there is stenosis b ilaterally approaching greater than 70% but greatest on the LEFT. Middle cerebral arteries: Mild narrowing diffusely throughout the M1 segments. Anterior cerebral arteries and ACOM: Small caliber LEFT A1 segment. No aneurysm. Posterior cerebral arteries and PCOM's: Patent but small caliber. Limited enhancement probably due to phase of injection and limited contrast. Mastoid air cells: Normal. Paranasal sinuses: Mild mucoperiosteal thickening LEFT frontal ethmoid recess extending into the ethm oid air cells. Complete opacification LEFT maxillary sinus with mild bony expansion of the sinus, sim ilar to the prior examination. Calvarium: Normal. Mild thinning of the scalp towards the RIGHT parietal vertex may be an area of adam gical resection. Patient has a history of melanoma. CT/CT angio head [id number] IMPRESSION: 1. Severe intracranial atherosclerosis throughout the [place]. 2. Heavy calcified plaque in the vertebral arteries. Moderate to high-grade st enosis bilaterally. 3. Very heavy calcification and narrowing of the lumen in the intracranial car otid arteries, greatest to the cavernous portions. Stenosis greater than 70% bi laterally. Similar findings were seen on a prior study from 12/13/2018 with mild progression. 4. Mild narrowing of the middle, anterior and posterior cerebral arteries as a radha but no occlusions. 5. Mild to moderate bilateral cerebral and cerebellar atrophy and small vessel ischemic disease.
[2021-10-02] MEDS: iohexol 300 mg/mL 100 mL Btl IV (14:19)
== END 2021-10-02 13:31 | disposition home or self-care (01) ==
LOC: RAD 13:33
PROVIDERS: PCP Family Medicine; Visit Provider Family Medicine
DX: I67.89 Other cerebrovascular disease (principal)
CPT/HCPCS: 70496

== ENCOUNTER 2021-10-03 12:34 | Outpatient (CLI) | payer MEDICARE, OTHER, SELFPAY ==
--- NOTE | 2021-10-03 | USCV_ITS ---
Elvis Paiz Age: 86 Gender: M : 1935 Exam Date: 10/03/2021 12:44 Ordering Phys: Selvin Canela MD Technologist: Rodo Murphy [place] [facility] [place]: claudication RIGHT LEFT Brachial 139.00 mmHg Brachial 143.00 mmHg Pressure (mmHg) Waveform Pressure (mmHg) Waveform 89.00 DIRECTOR BANKING 104.00 DPA 91.00 0.73 Ankle/Brachial Index 0.64 67.00 Pre-Exercise Toe Pressure 63.00 0.47 Pre-Exercise Toe/Brachial Index 0.44 FINDINGS Resting CARLOTA of 0.73 on the right side and 0.64 on the left side Resting TBI of 0.47 on the right and 0.44 on the left CONCLUSIONS Abnormal resting ABIs and TBIs bilaterally, consistent with moderate peripheral artery disease Dr Stevie Dale MD [facility] (Electronically Signed) Final Date: 04 Oct 2021 13:53 S
== END 2021-10-03 12:35 | disposition home or self-care (01) ==
PROVIDERS: PCP Family Medicine; Visit Provider Family Medicine
DX: I73.9 Peripheral vascular disease, unspecified (principal)
CPT/HCPCS: 93922

== ENCOUNTER → 2021-12-12 16:01 | Outpatient (BNVA) | payer MEDICARE, OTHER, SELFPAY | PROVIDERS: PCP Family Medicine; Visit Provider Internal Medicine | DX: I10 Essential (primary) hypertension (principal); I25.10 Atherosclerotic heart disease of native coronary artery without angina pectoris; E78.5 Hyperlipidemia, unspecified; I25.2 Old myocardial infarction; R01.1 Cardiac murmur, unspecified; Z87.891 Personal history of nicotine dependence; R55 Syncope and collapse | CPT/HCPCS: 93270; 99214 ==

== ENCOUNTER → 2021-12-12 16:56 | Outpatient (BNVA) | payer MEDICARE, OTHER, SELFPAY | PROVIDERS: PCP Family Medicine; Visit Provider Internal Medicine | DX: Z53.9 Procedure and treatment not carried out, unspecified reason (principal) ==

== ENCOUNTER → 2021-12-23 11:01 | Outpatient (BNVA) | payer MEDICARE, OTHER, SELFPAY | PROVIDERS: PCP Family Medicine; Visit Provider Family Medicine | DX: I10 Essential (primary) hypertension (principal); E78.5 Hyperlipidemia, unspecified | CPT/HCPCS: 80053; 82607; 85025 ==

== ENCOUNTER → 2021-12-31 13:29 | Outpatient (BNVA) | payer MEDICARE, OTHER, SELFPAY | PROVIDERS: PCP Family Medicine; Visit Provider Otolaryngology | DX: H91.93 Unspecified hearing loss, bilateral (principal); Z87.891 Personal history of nicotine dependence; R42 Dizziness and giddiness | CPT/HCPCS: 99213 ==

== ENCOUNTER 2022-01-06 08:59 | Outpatient (CLI) | payer MEDICARE, OTHER, SELFPAY ==
[2022-01-06 09:03] VITALS: BMI 24.9
--- NOTE | 2022-01-06 09:03 | NMCV_ITS ---
NM raquel perf SPECT r/s* [id number] Elvis Paiz Age: 86 Gender: M : 1935 Exam Date: 01/06/2022 10:13 Ordering Phys: Castillo Winters M.D ([email or web address]) Technologist: VEGA Kinney Exam Location: [facility] Indications: CHEST PAIN STRESS TEST Please see separate stress test report in [facility] for full findings IMAGE PROTOCOL Rest/Stress 1 Lexiscan Day Radiopharmaceutical Dose (mCi) Administration Site Administered by Rest: Tc-99m 10.9 IV VEGA Hassan Sestamibi Stress:Tc-99m 33.0 IV VEGA Hassan Sestamibi Rest: 06-Jan-2022 60 Discovery 630 Stress: 06-Jan-2022 30 Discovery 630 0.4mg Lexiscan. Images obtained in supine and prone position. SPECT RESULTS Technical Quality: Excellent Raw Data Analysis: Normal Image Corrections: No attenuation or motion correction applied Summed Stress Score: 10 Summed Rest Score: 2 Summed Difference Score: 8 PERFUSION FINDINGS There is a large in size, mostly reversible perfusion defect noted in inferolateral, apical lateral and inferior lester. This is consistent with large sized area of ischemia in left circumflex artery and RCA. FUNCTIONAL RESULTS (calculated via Gated SPECT) Stress Image LV EF (%): 64 Stress EDV (mL):87 TID: 0.87 Stress ESV (mL):31 FUNCTIONAL FINDINGS: There is normal left ventricular systolic function. IMPRESSIONS 1. Abnormal myocardial perfusion imaging with a large area of ischemia seen in left circumflex artery and RCA territory. Small sized area of infarction also seen in inferolateral wall. 2. LV systolic function is normal. Castillo Winters MD (Electronically Signed) Final Date: 13 January 2022 11:09 S
--- NOTE | 2022-01-06 09:03 | ECG_ITS ---
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 Interpretive Statements NAME OF STUDY: LEXISCAN SESTAMIBI STRESS TEST INDICATION: [Chest Pain] Procedure: At the baseline, the blood pressure was 161/80 mmHg with a heart rate of 51 bpm. The electrocardiogram showed normal sinus bradycardia, normal axis with normal ST and T's. The Lexiscan was infused over a period of 20 seconds. A total of 0.4 mg of Lexiscan was infused. The stress phase was continued for a total of 5 minutes. Heart rate was at the end of stress phase was 53 bpm and a blood pressure of 131/77 mmHg. The EKG at the peak infusion revealed since normal sinus rhythm with no significant ST-T wave changes. Sestamibi was injected 20 seconds after the Lexiscan infusion. Blood pressure at the end of recovery phase was 135/76 mmHg with a heart rate of 60 bpm. Conclusion: 1. Normal EKG response to Lexiscan infusion 2. No Lexiscan induced chest pain or cardiac arrhythmia. 3. Normal blood pressure and heart rate response. 4. Sestamibi/sestamibi perfusion scan pending; see separate report. Electronically Signed On 02-09-2022 21:10:05 CDT by Castillo Winters M.D. [email or web address]
[2022-01-06] MEDS: regadenoson 0.4 Mg/5 ml Syringe IVP (10:54)
[2022-01-06 10:55] VITALS: BP 135/76; PULSE 56
== END 2022-01-06 09:00 | disposition home or self-care (01) ==
LOC: CDL 09:01
PROVIDERS: PCP Family Medicine; Visit Provider Internal Medicine
DX: R07.9 Chest pain, unspecified (principal); R06.02 Shortness of breath
CPT/HCPCS: 78452; 93017; A9500; J2785

== ENCOUNTER 2022-01-27 17:02 | Outpatient (CLI) | payer MEDICARE, OTHER, SELFPAY ==
[2022-01-27 17:28] LABS: Basophils # 0.1 10^3/uL (0.0-0.1); Basophils % 0.5 %; Eosinophils # 0.3 10^3/uL (0.0-0.8); Hematocrit 42.5 % (42.0-52.0); Hemoglobin 13.6 g/dL (11.7-16.6); Lymphocytes % 29.3 %; Mean Corpuscular Volume 93.6 fl (80-94); Mean Platelet Volume 10.7 fL (7.4-10.4); Monocytes % 9.3 %; Neutrophils # 5.85 10^3/uL (1.8-7.7); Neutrophils % 57.6 %; Nucleated Red Blood Cells % 0 %; Platelet Count 252 10^3/cmm (130-400); Red Blood Count 4.54 10^6/uL (4.1-5.3); Red Cell Distribution Width 13.4 % (12.1-15.1); White Blood Count 10.2 10^3/uL (4.0-10.0)
[2022-01-27 17:45] LABS: INR 1.04 (0.83-1.21); Prothrombin Time (Patient) 13.9 Seconds (12.0-15.1)
[2022-01-27 17:50] LABS: Blood Urea Nitrogen 18 mg/dL (8-23); Calcium 9.8 mg/dL (8.5-10.5); Carbon Dioxide 28 mmol/L (22-29); Chloride 104 mmol/L (98-107); Glucose 124 mg/dL (65-115); Osmolality Calculated 295 mOsm/kg (285-295); Sodium 141 mmol/L (136-145)
== END 2022-01-27 17:03 | disposition home or self-care (01) ==
LOC: LAB 17:09
PROVIDERS: PCP Family Medicine; Visit Provider Internal Medicine
DX: I25.10 Atherosclerotic heart disease of native coronary artery without angina pectoris (principal); I35.0 Nonrheumatic aortic (valve) stenosis; R00.1 Bradycardia, unspecified; R58 Hemorrhage, not elsewhere classified
CPT/HCPCS: 36415; 80048; 85025; 85610

== ENCOUNTER 2022-01-30 09:53 | Observation (INO) | payer MEDICARE, OTHER, SELFPAY ==
[2022-01-30] VITALS (23 sets, daily range): BP systolic 117–184; BP diastolic 65–90; PULSE 44–61; RESP 9–22; TEMP 36.6–36.7; O2SAT 94–99; BMI 25.8
--- NOTE | 2022-01-30 07:30 | XACV_ITS ---
Exam Room: 1 Ht: 175 cm Wt: 79 kg BSA: 1.98 m2 Gender: Male : 1935 Any Known Allergies: Other Exam Priority: Routine Procedure(s): Procedure Description: Diagnostic procedure Procedure Description: PCI procedure Procedure Description: Left Heart Catheterization Procedure Description: Drug Eluting Coronary Stent Procedure Description: PTCA Procedure Description: Coronary Angiography Diagnostic Cath Status: Elective Diagnostic Findings * Elvis is 86 and has a history of coronary disease with multiple stents. He has a stent in his mid circumflex just proximal to the bifurcation of 2 good-sized marginal branches. Both marginals also have stents. The LAD has very mild disease but no previous stents. The right coronary artery has stents from the beginning of the vessel all the way past the acute margin. He has been having exertional chest pain typical of angina. Stress testing showed large areas of ischemia in the distribution of the right and the circumflex. He is here for angiography. He told me prior to the procedure that he was not interested in open heart surgery.. * Procedure was done from the right radial artery. Some difficulty was encountered in properly seating the catheters. The left main is normal. There is minor narrowing of the left main toward the bifurcation. There is a 95% single discrete stenosis of the proximal circumflex proximal to the existing stent. The stent itself is patent aside from some mild restenosis in the proximal part. Subsequently the 2 marginals bifurcate. There is a 80% discrete stenosis at the bifurcation point. There is also moderate to severe diffuse in-stent restenosis of the stents of both marginals. The LAD contains mild to moderate diffuse luminal irregularities similar to previously noted. In the midportion there is a 40 to 50% diffuse stenosis. The right coronary artery is diffusely diseased. There is in-stent restenosis of the entire length of the stents. The more proximal part is last restenosed in the more distal part. Then, beyond the stents the entire vessel is severely narrowed all the way to the bifurcation point of the posterior descending and posterior left ventricular branches.. PCI Status: Elective PCI LVEF Assessed: No PCI Indication: NSTE - ACS Interventional Findings * Given my discussion with him concerning his desire not to have open heart surgery, it became clear that the in-stent restenosis was not amenable to further intervention. I therefore chose to stent the proximal circumflex to achieve better inflow. This was done in an area that had not been previously stented. That area underwent angioplasty and then stenting. I did not intervene on any other artery. Plan is to speak to him about this and adjust his medications to try to relieve his angina by utilizing medication. Currently he is on amlodipine 5 mg daily as his only antianginal. The goal will be to try to treat him medically and keep him free of angina. If this fails 1 could consider intervening on the right coronary artery versus having another discussion about open heart surgery. His LAD disease is not severe enough to require open heart surgery. Decision for PCI with Surgical Consult: No PCI for Multi-vessel Disease: No Conclusions 1. Two-vessel coronary artery disease with severe in-stent restenosis of previously placed stents. Stenting of the proximal circumflex. This plan was discussed in detail with the patient's and daughter.. Recommendations * As noted above. Increase medication to achieve freedom from angina. Reassess. Interventional RX Recommendation: medical therapy and/or counseling Diagnostic RX Recommendation: medical therapy and/or counseling Anticoagulation: Heparin Left Ventriculography Findings: * Left heart catheterization was performed with measurement of the end-diastolic pressure. Ventriculography was not performed. Pressures Phase:Rest AO : 109 / 55 ( 74 ) @ 9:46:00 AM 94 / 55 ( 72 ) @ 9:49:00 AM 101 / 61 ( 79 ) @ 10:01:00 AM 118 / 62 ( 85 ) @ 10:10:00 AM 134 / 70 ( 94 ) @ 10:18:00 AM LV : 118 / -12 / 5 @ 9:46:00 AM Clinical Evaluation EBL: 5mL-10mL Procedural Details Pre-Procedure Time Out. Identified patient by full name and date of as verbalized by the patient/guarantor. Does the consent match the physician's order: Yes. Accurate & Complete Informed Consent: Yes. Inpatient/Outpatient History & Physical on Chart: Yes. If H&P is completed, is and addenduem needed: No; If yes, is the addendum complete: N/A. Visualize and Verify Site with Patient/Guarantor: N/A. Relevant Radiology Images available: Yes. Pre-op teaching completed and patient verbalized understanding. The risks, benefits, and alternatives of sedation and/or procedure were discussed by physician. The patient agrees to continue. Procedure started. Physician arrived. [facility] Clinical Fraility Score: 3: Managing Well. Fingerprint Technician Indications: Suspected CAD. Chest Pain Symptom Assessment: Atypical Angina. Correct patient, site and procedure confirmed by cath team. Current diagnosis: Chest Pain. PERRLA. Strong, equal hand outside contractor sales bilaterally. Lungs clear x 5 lobes. IV Site on Arrival: 20 gauge in the left anticubital. IV Fluids: 0.9% NaCl at KVO. 0 mL infused prior to cathode washer. Oxygen started at 2liters/min via nasal canula. right groin was prepped with chloroprep then draped in the usual sterile fashion. right radial was prepped with chloroprep then draped in the usual sterile fashion. Baseline sample Acquired. HR: 47 BPM. Physician scrubbed in. Immediate Pre-Procedure Time Out. Correct Patient: Yes; Correct Procedure: Yes; Correct Site: Yes; Correct Patient Position: Yes; Correct Supplies: Yes; Dried Flammable Prep: Yes; Blood Products Available: N/A;. Lidocaine 1% infiltrated to the right groin. Arterial access obtained. A 6 rwandan TIG catheter in over wire. EDP Sample taken: LV 118/-13,5; HR: 47 BPM; SpO2: 98%. Pullback taken: LV Off; AO Off; Mean: , Peak to Peak: , SEP: ; HR: 46 BPM; SpO2: 98%. Multiple views taken of left coronary artery. Catheter redirected to the RCA. Catheter removed over the exchange wire. A 6 rwandan JR4 catheter in over wire. Multiple views taken of right coronary artery. Physician review of cine films. Catheter removed over the exchange wire. 6 rwandan XB 3 guide catheter was inserted over the wire. [place] guidewire was advanced through the guide catheter to lesion in the prox Circ. Wire out. Guide catheter out. 6 rwandan XB 3.5 guide catheter was inserted over the wire. [place] guidewire was advanced through the guide catheter to lesion in the prox Circ. Inflation number : 1 A AB TREK [id number] RX BALLOON was prepped and advanced across the Prox CX , then inflated to 12 [place]STON for 0:20 seconds. Balloon out. Inflation Number : 2 A PHILLIP Boateng CHINYERE 3.5X8 NOEL -Lot Number# _[id number] EXP: 08/30/2023 was prepped and advanced across the Prox CX. The stent was deployed at 12 WESTON for 0:31 seconds. Stent balloon and wire out. Guide catheter out. A TR Band was successful obtaining hemostatsis at the Right Radial artery insertion site. Post Procedure: Pulses reassessed and unchanged. PERRLA. Strong, equal hand outside contractor sales bilaterally. No VTE prophylaxis required. Total IV fluids: 75 mL. Medication's Wasted: Nitro = 49.8 mg. Medication's Wasted: Heparin = 1000 UNITS. Medication's Wasted: Lidocaine 1% = 2 mL. Vital chart was stopped. Post-op diagnosis: CAD. Complications: NONE. Estimated blood loss: 5mL-10mL. Responsiveness - Normal response to verbal stimuli; alert and oriented, PERRLA. Airway - Unaffected, no intervention required; spontaneous ventilation. Circulation: W/N/L, pulses unchanged. Nausea/Vomiting: No. Procedure completed. Patient transferred by wheelchair to CPRU. Access Site Site: Right Radial artery Sheath Size: 6 Fr Hemostasis Method: TR Band Hemostasis Success: Successful Procedure Medications Start: 8:30 AM Stop: 8:30 AM Medication: Versed 1 mg and Fentanyl 25 mcg Amount: 1 Route: I.V. Start: 8:41 AM Stop: 8:41 AM Medication: Nitrogylcerin Amount: 200 mcg Route: I.A. Start: 8:45 AM Stop: 8:45 AM Medication: Heparin Amount: 5000 units Route: I.V. Start: 8:47 AM Stop: 8:47 AM Medication: Versed Amount: 1 mg Route: I.V. Start: 9:29 AM Stop: 9:29 AM Medication: Brilinta Amount: 180 mg Route: P.O. I, the attending physician, have reviewed and verified all procedure medications. Yes, all medications given per verbal order History/Risk Factors Hypertension: Yes Dyslipidemia: Yes Peripheral Arterial Disease (PAD): No Myocardial Infarction (MO): Yes Obesity: No Renal Disease: No Prior Interventions PCI: Yes CABG: No Valve Surgery: No Date of PCI: 06/16/2012 Report Signatures Finalized by Dr. Nacho Cano MD on 01/30/2022 10:01 AM
[2022-01-30] MEDS: diphenhydrAMINE 50 mg Capsule PO (08:00)
--- NOTE | 2022-01-30 08:02 | PM.HP ---
Providers/Chief Complaint Admitting Physician: rasheeda Primary Care Provider: Selvin Canela MD Chief Complaint: R94.39 History of Present Illness Elvis Paiz is a 86 year old male who is being put in today electively for the purposes of coronary angiography. He is 86 years old and was a patient of mine prior to my [place] [facility]. He saw one of my colleagues on the day of November of this year with occasional dizzy spells. He had an event monitor placed with some pauses but the pauses did not correlate with his symptoms. Some medication adjustments have been made which seem to improve his symptoms. At that time he states that he had some pressure in his chest that was exertional. No resting discomfort and no nocturnal discomfort. This prompted a stress test which occurred on January 06. This revealed a large area of ischemia in the distribution of the circumflex and right coronary artery territories. His LV systolic function was normal. Because of the large area of ischemia he was scheduled for coronary angiography. Review of Systems Narrative: Review of systems is negative Medications/Allergies Home Medications Medication Instructions Recorded Confirmed Last Taken Type ascorbate calcium (vitamin C) 500 1,000 mg PO BID 08/30/19 01/29/22 Unknown History mg tablet cholecalciferol (vitamin D3) 125 125 mcg PO QAM 08/30/19 01/29/22 Unknown History mcg (5,000 unit) capsule nitroglycerin 0.4 mg sublingual 0.4 mg sublingual Q5M PRN chest 05/09/21 01/29/22 Unknown Rx tablet (Nitrostat) pain #25 tabs Magnesium Citrate Powder 400 mg PO QPM 09/20/21 01/29/22 09/19/21 History aspirin 81 mg tablet,delayed 81 mg PO QPM 09/20/21 01/29/22 09/19/21 History release bimatoprost 0.01 % eye drops 1 drp ophthalmic (eye) QPM 09/20/21 01/29/22 09/18/21 History (Lumigan) epinephrine 0.3 mg/0.3 mL 0.3 mg IM . DIRECTED PRN 09/20/21 01/29/22 Unknown History injection, auto-injector (EpiPen Allergic Reaction 2-Jose Angel) methylsulfonylmethane 500 mg 500 mg PO BID 09/20/21 01/29/22 Unknown History capsule amlodipine 5 mg tablet 5 mg PO DAILY #30 tabs 09/21/21 01/29/22 Unknown Rx fluticasone propionate 50 2 spray intranasal DAILY 11/22/21 01/29/22 Unknown History mcg/actuation nasal spray,suspension (Allergy Relief (fluticasone)) dorzolamide 22.3 mg-timolol 6.8 1 drp ophthalmic (eye) BID 12/12/21 01/29/22 Unknown History mg/mL eye drops hydrocodone 10 mg-acetaminophen 1 tab PO 3XD PRN Pain 01/29/22 01/29/22 Unknown History 325 mg tablet Allergies Allergy/AdvReac Type Severity Reaction Status Date / Time clopidogrel [From Plavix] Allergy Severe ALGY-Rash Verified 01/29/22 13:04 oxycodone Allergy Severe confusion Verified 01/29/22 13:04 venom-honey bee Allergy Severe ALGY-Anaphy Verified 01/29/22 13:04 laxis ezetimibe [From Zetia] AdvReac Severe ADR-Muscle Verified 01/29/22 13:04 Pain influenza virus vaccine, AdvReac Severe sick Verified 01/29/22 13:04 specific red yeast rice AdvReac Severe ADR-Fatigue Verified 01/29/22 13:04 d Jtaluci-HNL-SfD Reductase AdvReac Severe muscle Verified 01/29/22 13:04 Inhibitor aches [Bhmadzw-Gdt-Whv Reductase Inhibitor] PFSH Acute PFSH: Medical History (Updated 01/30/22 @ 08:08 by Nacho Cano MD) Abnormal stress test Aortic stenosis, mild ASHD (arteriosclerotic heart disease) BPH (benign prostatic hyperplasia) Chest pain Chronic back pain DJD (degenerative joint disease), lumbar Dyslipidemia GERD (gastroesophageal reflux disease) Hypertension Myocardial infarction ONEIL (obstructive sleep apnea) Symptomatic bradycardia Surgical History Previous back surgery S/P appendectomy S/P carpal tunnel release S/P knee replacement S/P PTCA (percutaneous transluminal coronary angioplasty) Family History Father CAD (coronary artery disease) Mother CHF (congestive heart failure) Brother CAD (coronary artery disease) Myocardial infarction Social History Smoking and tobacco status: former smoker (50 years ago ) Alcohol intake: never Household members: spouse Marital status: service: No Current occupational status: retired Physical Exam Narrative: GENERAL: In general he is awake alert and in no distress today HEENT: Exam within normal limits. NECK: Supple without jugular vein distention. The carotid upstroke is normal without bruits. BACK: Exam normal. LUNGS: Clear. HEART: Regular rate and rhythm. ABDOMEN: Benign without organomegaly or tenderness. EXTREMITIES: No edema. NEUROLOGIC: Exam normal. SKIN: Unremarkable. A&P Assessment and plan (1) ONEIL (obstructive sleep apnea): Status: Acute (2) Hypertension: Status: Acute (3) Aortic stenosis, mild: Status: Acute (4) ASHD (arteriosclerotic heart disease): Status: Acute (5) Accelerated hypertension: Status: Acute (6) Second degree type I atrioventricular block: Status: Acute (7) Chest pain: Status: Acute (8) Abnormal stress test: Status: Acute Plan Coronary angiography today. I explained the risks and benefits to the patient. He signed the consent form in front of me. Further recommendations dependent upon the results. Attestations Medical Necessity Statement*: Outpatient coronary angiogram Coding Level of Care Code New Pt Acute High Value Associate for Chg Fwd Patient Type New History Detailed Exam Detailed Medical Decision Making Moderate Complexity Diagnoses ONEIL (obstructive sleep apnea) G47.33 Hypertension I10 Aortic stenosis, mild I35.0 ASHD (arteriosclerotic heart disease) I25.10 Accelerated hypertension I10 Second degree type I atrioventricular block I44.1 Chest pain R07.9 Abnormal stress test R94.39
--- NOTE | 2022-01-30 14:32 | PC.NURSE ---
received into [id number] from cardiac laundry laborer at 1350 via w/c.report received.pt is alert and oriented x 4.denies pain at present.sr - sb on monitor.laundry laborer has been deflating tr band until transfer.tr band remains on and slightly inflated.no hematoma noted.right hand remains warm to toucha nd with brisk capillary refill.palpable radial pulse noted distal to tr band.pt oriented to room environment...and instructed in activity restrictions s/p radial artery procedure ,and instructed to notify staff for any bleeding,pain,sob,bruising,numbness..or for any concerns at all.pt verb understanding of instructions
--- NOTE | 2022-01-30 16:01 | P.DS_ITS ---
Discharge Providers Date of Admission: 01/30/22 14:01 Date of Discharge: January 30, 2022 Attending Provider at Admission: Nacho Cano MD Attending Provider at Discharge: Nacho Cano MD Primary Care Provider: Selvin Canela MD Diagnoses at Discharge Discharge Diagnosis (1) ONEIL (obstructive sleep apnea): Status: Acute (2) Hypertension: Status: Acute (3) Aortic stenosis, mild: Status: Acute (4) ASHD (arteriosclerotic heart disease): Status: Acute (5) Accelerated hypertension: Status: Acute (6) Second degree type I atrioventricular block: Status: Acute (7) Chest pain: Status: Acute (8) Abnormal stress test: Status: Acute Reason for Visit Reason for Visit: R94.39 Brief History: Elvis is 86 and has multiple previous stents placed in the right coronary artery and circumflex. He has been having exertional angina relieved by nitroglycerin recently. A stress test was done which showed a large area of ischemia in the distribution of both the right and the circumflex. It was recommended he undergo coronary angiography. Hospital Course Hospital Course Angiogram shows in-stent restenosis of the stents in the 2 marginals and to some degree in the stents in the right coronary artery. He also developed a new lesion proximal to the most proximal circumflex stent. After consultation with him, his and daughter he decided he did not want open heart surgery. His LAD is relatively free of disease. I decided to stent the proximal circumflex to give him better inflow and left everything else alone. The goal now is to add antianginal medication to see if we can prevent him from having any exertional or resting angina. 1 could consider open heart surgery if all medical therapy fails. The other possibility would be to do a plain old balloon angioplasty on the previously stented areas though this will obviously restenosed quickly. The very distal right coronary artery is not stented and could be intervened upon as another option. These would be fairly risky and not likely to have a high degree of success. I am going to leave his amlodipine dose alone and add isosorbide mononitrate 30 mg daily. This could be adjusted upward if his angina is not completely relieved. The amlodipine could be doubled to 10 mg. A beta-adelaide could be added back as well. He has been somewhat intolerant of beta-blockers in the past so that is why he is not currently on that drug. At the time of discharge, his right radial artery is flat, dry without bleeding or hematoma. Physical Exam Narrative: GENERAL: In general he looks and feels well HEENT: Exam within normal limits. NECK: Supple without jugular vein distention. The carotid upstroke is normal without bruits. BACK: Exam normal. LUNGS: Clear. HEART: Regular rate and rhythm. ABDOMEN: Benign without organomegaly or tenderness. EXTREMITIES: No edema. The right radial artery area is flat, dry without vascular anomaly, bleeding or hematoma. NEUROLOGIC: Exam normal. SKIN: Unremarkable. Discharge Data Studies Completed and Pending Completed Studies During Hospitalization Category Date Time Status [employer] request for service Routine Exams 01/30/22 07:30 Completed Procedures Performed Coronary angiography, stenting of the proximal circumflex. Vitals Last Vital Signs Temp 97.9 F 01/30/22 15:26 Pulse 53 L 01/30/22 15:26 Resp 22 H 01/30/22 15:26 BP 143/82 01/30/22 15:26 Pulse Ox 97 01/30/22 15:26 O2 Del Method 01/30/22 15:26 Discharge Plan Discharge Patient Disposition: Home Condition: Stable Prescriptions: New clopidogrel [Plavix] 75 mg tablet 75 mg PO DAILY Qty: 30 6RF isosorbide mononitrate 30 mg tablet extended release 24 hr 30 mg PO DAILY Qty: 30 6RF Continued ascorbate calcium (vitamin C) 500 mg tablet 1,000 mg PO BID cholecalciferol (vitamin D3) 125 mcg (5,000 unit) capsule 125 mcg PO QAM dorzolamide-timolol 22.3-6.8 mg/mL drops 1 drp ophthalmic (eye) BID fluticasone propionate [Allergy Relief (fluticasone)] 50 mcg/actuation spray,suspension 2 spray intranasal DAILY Rx Instructions: administer into each nostril nitroglycerin [Nitrostat] 0.4 mg tablet, sublingual 0.4 mg SUBLINGUAL Q5M PRN (Reason: chest pain) Qty: 25 2RF aspirin 81 mg Tablet,Delayed Release (Dr/Ec) 81 mg PO QPM epinephrine [EpiPen 2-Jose Angel] 0.3 mg/0.3 mL Auto-Injector 0.3 mg IM . DIRECTED PRN (Reason: Allergic Reaction) methylsulfonylmethane 500 mg Capsule 500 mg PO BID Lumigan 0.01 % Drops 1 drp OPHTHALMIC (EYE) QPM Rx Instructions: left eye Magnesium Citrate Powder powder 400 mg PO QPM amlodipine 5 mg Tablet 5 mg PO DAILY Qty: 30 0RF hydrocodone-acetaminophen 10-325 mg tablet 1 tab PO 3XD PRN (Reason: Pain) Referrals: Beverley Randall FNP [Nurse Practitioner] - 7-10 days (Radial artery check, chemistry panel) Discharge Diet: Cardiac Discharge Activity: Limit activity as instructed Patient Instructions: Coronary Angioplasty (DC) Activity Restrictions/Additional Instructions: No lifting over 5 pounds for 2 days with the right upper extremity. Discharge Attestations Time Spent in Discharge Care*: greater than 30 min Status at Discharge: Cognitive status at discharge: cognitively intact , Behavioral status at discharge: cooperative , Quality Metrics Clinical Quality Measures [ No reported AMI, CVA or VTE this stay] Coding Level of Care Code Established Pt Acute Chg FW DC note Patient Type Established History Detailed Exam Detailed Medical Decision Making Moderate Complexity Diagnoses ONEIL (obstructive sleep apnea) G47.33 Hypertension I10 Aortic stenosis, mild I35.0 ASHD (arteriosclerotic heart disease) I25.10 Accelerated hypertension I10 Second degree type I atrioventricular block I44.1 Chest pain R07.9 Abnormal stress test R94.39
--- NOTE | 2022-01-30 16:01 | PC.NURSE ---
tr band slowly deflated and finally removed at 1430.no hematoma noted.site dressed with 2x2 gauze and secured with biocclusive drsg.pt instructed in activity restrictions s/p tr band removal..and instructed to notify staff for any bleeding,pain,numbness,or for any concerns at all.pt verb understanding of instructions
--- NOTE | 2022-01-30 17:30 | PC.NURSE ---
discharge instructions given and explained.pt and spouse verb understanding of instructions.discharged via w/c to exit at this time.spouse to drive pt home
== END 2022-01-30 17:34 | disposition home or self-care (01) ==
LOC: MEDSURG 16:01
PROVIDERS: Admitting Provider Internal Medicine Cardiovascular Disease; PCP Family Medicine; Visit Provider Internal Medicine Cardiovascular Disease
DX: T82.855A Stenosis of coronary artery stent, initial encounter (principal); I25.10 Atherosclerotic heart disease of native coronary artery without angina pectoris; I25.2 Old myocardial infarction; I35.0 Nonrheumatic aortic (valve) stenosis; I44.1 Atrioventricular block, second degree; I10 Essential (primary) hypertension; E78.5 Hyperlipidemia, unspecified; G47.33 Obstructive sleep apnea (adult) (pediatric); Z79.82 Long term (current) use of aspirin; Y83.8 Other surgical procedures as the cause of abnormal reaction of the patient, or of later complication, without mention of misadventure at the time of the procedure; Z82.49 Family history of ischemic heart disease and other diseases of the circulatory system
CPT/HCPCS: 36415; 93458; 96360; 96361; 99152; 99153; C1725; C1769; C1874; C1887; C1894; C9600; G0378; J0461; J1644; J2250; J3010; J3490; J7030; Q0163; Q9967

== ENCOUNTER → 2022-02-07 09:31 | Outpatient (BNVA) | payer MEDICARE, OTHER, SELFPAY | PROVIDERS: PCP Family Medicine; Visit Provider Nurse Practitioner Family | DX: I25.10 Atherosclerotic heart disease of native coronary artery without angina pectoris (principal); I10 Essential (primary) hypertension; I25.2 Old myocardial infarction; Z87.891 Personal history of nicotine dependence | CPT/HCPCS: 80048; 99214 ==

== ENCOUNTER 2022-04-17 11:16 | Outpatient (CLI) | payer MEDICARE, OTHER, SELFPAY ==
--- NOTE | 2022-04-17 11:31 | XRR_ITS ---
PROCEDURE INFORMATION: Exam: XR Chest Exam date and time: 04/17/2022 11:48 AM Age: 87 years old Clinical indication: Cough with hemorrhage; Prior surgery; Surgery type: Appendectomy, spine x 3; Additional info: Coughing up blood TECHNIQUE: Imaging protocol: Radiologic exam of the chest. Views: 2 views. COMPARISON: CR XR chest 1V portable [id number] 09/20/2021 2:10 PM FINDINGS: Tubes, catheters and devices: Thoracic spinal stimulator stimulator present. Lungs: There is right middle lobe airspace disease. This can be due to pulmonary hemorrhage given the history, but pneumonia could have the same appearance. Underlying neoplasm not excluded. There is a suggestion there could be a cavity, pneumatocele or bleb in this area of airspace disease. Pleural spaces: No pleural effusion or pneumothorax. Heart/Mediastinum: The cardiac silhouette is not enlarged. The mediastinal contours are normal. Bones/joints: Chronic L1 vertebral body compression fracture. XR/XR chest 2V* [id number] IMPRESSION: Right middle lobe airspace disease. Possibilities would include pulmonary hemorrhage as well as pneumonia. Underlying neoplasm or cavitation not excluded. Consider CT CHEST.
== END 2022-04-17 11:17 | disposition home or self-care (01) ==
LOC: LAB 11:20
PROVIDERS: PCP Family Medicine; Visit Provider Family Medicine
DX: R04.2 Hemoptysis (principal)
CPT/HCPCS: 71046

== ENCOUNTER 2022-04-18 11:38 | Outpatient (CLI) | payer MEDICARE, OTHER, SELFPAY ==
[2022-04-18] MEDS: iohexol 350 mg/mL 500 mL Btl (per mL) IV (11:58)
--- NOTE | 2022-04-18 18:00 | CT_ITS ---
WS: [id number] CT CHEST TECHNIQUE: Contrast enhanced CT of the chest with coronal and sagittal reformatted images. CLINICAL INFORMATION: Pulmonary infarct coughing up blood COMPARISON: CT August 05, 2017 DLP: 787.[address] scans at [facility] use at least one of these dose optimization techniques: automated e xposure control; mA and/or kV adjustment per patient size (includes targeted exams where dose is matc hed to clinical indication); or iterative reconstruction. FINDINGS: Chronic emphysematous changes. Cardiomegaly. Ectatic ascending thoracic aorta measuring 3.8 cm. Proxi mal main pulmonary arteries are normal. Chronic appearing subpleural reticular opacities with interst itial thickening and fibrosis in both lungs compatible with interstitial lung disease. Thick-walled RIGHT middle lobe mass with central cavitation. This extends to the RIGHT hilum with bro nchovascular thickening. Irregular wall thickening measures 10-15 mm. A few prominent peribronchial l ymph nodes. Soft tissue thickening extends to the RIGHT hilum. Findings suspicious for cavitary neopl asm versus cavitary pneumonia/abscess. Mild associated pleural thickening. Additional considerations such as fungal infection/aspergilloma or pulmonary infarct/septic emboli less likely. Cardiomegaly. Enlarged LEFT ventricle. No axillary lymphadenopathy. Adrenal glands are normal. Small esophageal hiatal hernia. Splenic artery calcification. Mild thoracic curve and kyphosis. Dorsal spin al stimulator. Chronic compression of the L1 vertebral body with mild chronic retropulsion and modera te central canal stenosis. This appears stable since 2018. CT/CT chest w con* [id number] IMPRESSION: 1. Cavitary thick-walled mass in the RIGHT middle lobe along the fissure. Asso ciated central cavitation with a small amount of internal debris. Associated so ft tissue thickening extends to the RIGHT hilum and RIGHT middle lobe bronchus. Findings suspicious for cavitary neoplasm versus cavitary pneumonia/abscess. A dditional less likely considerations described above. 2. Findings can be further evaluated with bronchoscopy. 3. A few slight prominent peribronchial lymph nodes similar in appearance to 2 018. Bronchovascular thickening along the RIGHT hilum. 4. Ectatic ascending thoracic aorta measuring 3.8 cm. 5. Small esophageal hiatal hernia. 6. Chronic interstitial disease within both lungs with subpleural/fibrosis. 7. Proximal main pulmonary arteries are patent. PE protocol was not performed. Notified Selvin Canela MD at 04/18/2022 12:37 PM.
== END 2022-04-18 11:39 | disposition home or self-care (01) ==
LOC: RAD 11:39
PROVIDERS: PCP Family Medicine; Visit Provider Family Medicine
DX: I26.99 Other pulmonary embolism without acute cor pulmonale (principal); R04.2 Hemoptysis; I77.810 Thoracic aortic ectasia; K44.9 Diaphragmatic hernia without obstruction or gangrene; J84.9 Interstitial pulmonary disease, unspecified
CPT/HCPCS: 71260; Q9967

== ENCOUNTER → 2022-04-23 12:38 | Outpatient (BNVA) | payer MEDICARE, OTHER, SELFPAY | PROVIDERS: PCP Family Medicine; Visit Provider Internal Medicine | DX: I10 Essential (primary) hypertension (principal); I25.10 Atherosclerotic heart disease of native coronary artery without angina pectoris; E78.5 Hyperlipidemia, unspecified; R01.1 Cardiac murmur, unspecified; I25.2 Old myocardial infarction; Z87.891 Personal history of nicotine dependence | CPT/HCPCS: 99214 ==

== ENCOUNTER → 2022-04-28 10:09 | Outpatient (BNVA) | payer MEDICARE, OTHER, SELFPAY | PROVIDERS: PCP Family Medicine; Visit Provider Internal Medicine Pulmonary Disease | DX: J98.4 Other disorders of lung (principal); I25.10 Atherosclerotic heart disease of native coronary artery without angina pectoris; Z95.5 Presence of coronary angioplasty implant and graft; Z87.891 Personal history of nicotine dependence; I10 Essential (primary) hypertension | CPT/HCPCS: 99204 ==

== ENCOUNTER 2022-04-29 05:54 | Day surgery (SDC) | payer MEDICARE, OTHER, SELFPAY ==
[2022-04-28 13:49] VITALS: BMI 25.1
[2022-04-29] VITALS (11 sets, daily range): BP systolic 140–169; BP diastolic 69–83; PULSE 46–74; RESP 14–20; TEMP 36.2–36.6; O2SAT 93–99
--- NOTE | 2022-04-29 | SC_ITS ---
WS: [id number] C-arm fluoroscopy of the chest for bronchoscopy, 04/29/2022 Clinical Data: right middle lobe lesion Comparison: None. Findings: The bronchoscope is within the right lower lung. SC/C-arm FL for Bronchoscopy Impression: C-arm fluoroscopy of the right chest.
[2022-04-29] MEDS: sodium chloride 0.9% 1,000 ML 30 ML IV (06:32)
--- NOTE | 2022-04-29 06:55 | W.PM.OPSUD ---
Surgery/Procedure H&P Update DATE OF PROCEDURE: April 29, 2022 DATE H&P PERFORMED: 04/28/22 CHANGES TO PREVIOUS DOCUMENTATION: NONE PLANNED PROCEDURE: Operation Date: 04/29/22 07:00 Proposed Procedures p ION Bronchoscopy with EBUS 86781, 30644, 59748, 98471, 35542, 99462, 14365, 18462, 55114, 22646,R04.0,R91.8(Not Applicable) - Freddy Miner DatarMD Related Problem List Diagnoses (1) Cavitating mass in right middle lung lobe:
--- NOTE | 2022-04-29 06:57 | ANES.PREANE2 ---
Pre-Anesthetic Assessment Height/Weight: Height 1.75 m Weight 77.111 kg Temp Pulse Resp BP Pulse Ox O2 Del Method 97.9 F 50 L 18 169/81 95 04/29/22 06:18 04/29/22 06:18 04/29/22 06:18 04/29/22 06:18 04/29/22 06:18 04/29/22 06:18 Operation Date: 04/29/22 07:00 Proposed Procedures p ION Bronchoscopy with EBUS 42096, 83528, 77155, 16580, 98810, 89623, 21304, 09958, 28788, 56220,R04.0,R91.8(Not Applicable) - Freddy Miner DatarMD Familial anesthetic complications: Confusion and hallucinations after previous surgery, thought to be due to oxycodone Was Beta Anil taken within 24 hours: N/A Was Clonidine taken within 24 hours: N/A Last intake: Intake Last Liquid Date 04/28/22 Last Liquid Time 22:00 Last Solid Date 04/28/22 Last Solid Time 17:00 Social No alcohol and No tobacco Exam alert, oriented x 3, clear to auscultation bilaterally and regular rate & rhythm Airway Mallampati: Class II Dentition: full Pulmonary Sleep Apnea hemoptysis w/ lung mass -having to hold plavix and aspirin CV/HEM Arrythmia (bradycardia and asymptomatic episodes of complete heart block (2-3 sec pauses)), Coronary Artery Disease (multiple stents with in-stent restenosis (severe), not amendable to further intervention, most recent stent placed february 06) and Myocardial Infarction Metabolic Hyperlipidemia Anesthetic Plan ASA status: 4 Anesthesia: General Risk of > 500 ml blood loss (7ml/kg in children): No Medications/Allergies Home Medications Medication Instructions Recorded Confirmed Last Taken Type ascorbate calcium (vitamin C) 500 1,000 mg PO BID 08/30/19 04/29/22 04/28/22 History mg tablet cholecalciferol (vitamin D3) 125 125 mcg PO QAM 08/30/19 04/29/22 04/28/22 History mcg (5,000 unit) capsule nitroglycerin 0.4 mg sublingual 0.4 mg sublingual Q5M PRN chest 05/09/21 04/29/22 01/16/22 20:00 Rx tablet (Nitrostat) pain #25 tabs Magnesium Citrate Powder 400 mg PO QPM 09/20/21 04/29/22 04/28/22 History aspirin 81 mg tablet,delayed 81 mg PO QPM 09/20/21 04/29/22 04/25/22 History release bimatoprost 0.01 % eye drops 1 drp ophthalmic (eye) QPM 09/20/21 04/29/22 04/28/22 History (Lumigan) epinephrine 0.3 mg/0.3 mL 0.3 mg IM . DIRECTED PRN 09/20/21 04/29/22 Unknown History injection, auto-injector (EpiPen Allergic Reaction 2-Jose Angel) methylsulfonylmethane 500 mg 500 mg PO BID 09/20/21 04/29/22 04/28/22 History capsule amlodipine 5 mg tablet 5 mg PO DAILY #30 tabs 09/21/21 04/29/22 04/28/22 Rx fluticasone propionate 50 2 spray intranasal DAILY 11/22/21 04/29/22 01/29/22 22:00 History mcg/actuation nasal spray,suspension (Allergy Relief (fluticasone)) dorzolamide 22.3 mg-timolol 6.8 1 drp ophthalmic (eye) BID 12/12/21 04/29/22 04/28/22 History mg/mL eye drops clopidogrel 75 mg tablet (Plavix) 75 mg PO DAILY #30 tabs 01/30/22 04/29/22 04/17/22 Rx hydrocodone 10 mg-acetaminophen 1 tab PO 3XD PRN Pain 1 month #90 04/24/22 04/29/22 04/29/22 02:00 Rx 325 mg tablet tabs isosorbide mononitrate 60 mg 60 mg PO DAILY 04/29/22 04/29/22 04/29/22 History tablet,extended release 24 hr Allergies Allergy/AdvReac Type Severity Reaction Status Date / Time oxycodone Allergy Severe confusion Verified 04/29/22 06:12 venom-honey bee Allergy Severe ALGY-Anaphy Verified 04/29/22 06:12 laxis ezetimibe [From Zetia] AdvReac Severe ADR-Muscle Verified 04/29/22 06:12 Pain influenza virus vaccine, AdvReac Severe sick Verified 04/29/22 06:12 specific red yeast rice AdvReac Severe ADR-Fatigue Verified 04/29/22 06:12 d Avnjseb-OOZ-XjN Reductase AdvReac Severe muscle Verified 04/29/22 06:12 Inhibitor aches [Jvzexqa-Qlp-Whm Reductase Inhibitor] Current Medications Generic Name Dose Route Start Last Admin Trade Name James PRN Reason Stop Dose Admin Sodium Chloride 1,000 mls @ 30 mls/hr 04/29/22 06:00 04/29/22 06:32 Sodium Chloride 0.9% IV 04/30/22 05:59 30 mls/hr .Q24H ROSSY Administration PFSH Anesthesia Medical History Abnormal stress test Aortic stenosis, mild ASHD (arteriosclerotic heart disease) BPH (benign prostatic hyperplasia) Chest pain Chronic back pain DJD (degenerative joint disease), lumbar Dyslipidemia GERD (gastroesophageal reflux disease) Hypertension Myocardial infarction ONEIL (obstructive sleep apnea) Symptomatic bradycardia Surgical History Previous back surgery S/P appendectomy S/P carpal tunnel release S/P knee replacement S/P PTCA (percutaneous transluminal coronary angioplasty) Family History Father CAD (coronary artery disease) Mother CHF (congestive heart failure) Brother CAD (coronary artery disease) Myocardial infarction Social History Smoking and tobacco status: former smoker (50 years ago) Quit status (tobacco): has quit using tobacco Year quit tobacco: 1970 Former quit date comment: 2ppd X 18 years Alcohol intake: never Household members: spouse Marital status: service: No Current occupational status: retired Data Anesthesia Cardiac Studies: Echocardiogram 07/18/21 Sestamibi Stress Test (Cardiology) 01/06/22 Cardiac Event Monitor 12/12/21
[2022-04-29] MEDS: lidocaine 1% INJ 20 mL XX (07:15)
--- NOTE | 2022-04-29 09:08 | P.OP_ITS ---
Operative Report Date of procedure: April 29, 2022 Pre-op diagnosis: Cavitating mass of right middle lobe Post-op diagnosis: Suspected malignancy Procedure done: 38563 Dx Bronchoscope w/Washings or airway inspection 79751 Bx Bronchoscope w/Brushings or protected brushings 96355 Dx Bronchoscope w/BAL? 62731 Bronch with computer image guided Navigational Bronchoscopy 88277 Bronchoscopy w/Transbronchial lung biopsy(s), single lobe 56590 Bronchoscopy w/Transbronchial needle aspiration biopsy(s), tracheal, main stem, and/or lobar bronchus 30835 Bronchoscopy w/ therapeutic aspiration of the tracheobronchial tree (clearance of airway secretions, removal of mucus plugs) 79158 EBUS Sampling 1/2 nodes 41863 EBUS Diag or Interven Peripheral lesion (radial EBUS) Surgeon: Freddy Kurtz MD, [facility] Brief History: Mr. Elvis Paiz is an 87-year-old male with past medical history of CAD s/p 6 stents (5 in 2011 and most recently January 2022 )former smoker, 2 ppd X 18 years, quit 1970. Patient reported hemoptysis first episode about 8 months ago, bright red. Hemoptysis started again 04/17/2022, bright red. Seen by primary, obtained CT chest 04/18/2022 which showed cavitary thick-walled mass in the right middle lobe along the fissure.? Associated central cavitation with small amount of internal debris's, associated soft tissue thickening extends to the right hilum and right middle lobe bronchus.? Findings consistent with cavitary neoplasm versus cavitary pneumonia/abscess.? There is also evidence of chronic interstitial disease within both lungs with subpleural/fibrosis. Reports on and off pain with inspiration. SOB with exertion. Has ONEIL and uses C- Pap every night.? Reported appetite is okay, denied weight loss, fevers, chills, in general low energy but no unusual change in last few months.? Not on any immunosuppression medications. Due to his ongoing hemoptysis-he has held his Plavix for last 2 weeks. I scheduled ION robotic bronchoscope guided biopsies of cavitating mass/endobronchial ultrasound surveillance of hilar/mediastinal area and biopsies today Procedure: Procedure: 03340 Dx Bronchoscope w/Washings or airway inspection 54665 Bx Bronchoscope w/Brushings or protected brushings 58462 Dx Bronchoscope w/BAL? 54418 Bronch with computer image guided Navigational Bronchoscopy 40833 Bronchoscopy w/Transbronchial lung biopsy(s), single lobe 14587 Bronchoscopy w/Transbronchial needle aspiration biopsy(s), tracheal, main stem, and/or lobar bronchus 56480 Bronchoscopy w/ therapeutic aspiration of the tracheobronchial tree (clearance of airway secretions, removal of mucus plugs) 91516 EBUS Sampling 1/2 nodes 88384 EBUS Diag or Interven Peripheral lesion (radial EBUS) Surgeon: Freddy Kurtz MD, [facility] ? Indication: ?Cavitary thick-walled mass in the RIGHT middle lobe along the fissure. Associated central cavitation with a small amount of internal debris. Associated soft tissue thickening extends to the RIGHT hilum and RIGHT middle lobe bronchus. Findings suspicious for cavitary neoplasm versus cavitary pneumonia/abscess Anesthesia: General anesthesia. Local anesthesia: The avi in the right and left mainstem bronchi were anesthetized with 1% lidocaine, 3 mL. Description of the procedure: The procedure was explained to the patient and the consent was obtained.? The patient was brought to the OR.? The patient underwent endotracheal intubation for general anesthesia.? Following induction of general anesthesia, the flexible bronchoscope used for? initial inspection (78855)?and airway clearance (44949). The scope was advanced through the ET tube.? The lower trachea mucosa appeared normal, no endotracheal lesion was seen.? The avi was sharp.? The avi, the right and left mainstem bronchi are anesthetized with 1% lidocaine.? In a systematic manner bilateral bronchial tree was then examined.? The bronchoscope was advanced into the left mainstem bronchus.? The mucosa appeared normal with no endobronchial lesions.? The left upper lobe, lingula and left lower lobe bronchi were examined up to the third subsegmental level and no abnormalities were identified.? Mucosa appeared normal with no endobronchial lesion, active bleeding or mucous plug.? There were some mucus secretions in lower lobe-which were suctioned right away.? The bronchoscope was then introduced into the right mainstem bronchus.? The right upper lobe, right middle lobe and right lower lobe bronchi were examined up to the third subsegmental level and no abnormalities were identified.? The mucosa appeared normal with no endobronchial lesions, active bleeding.? There were some mucus secretions which were suctioned right away. After initial inspection as well as?airway clearance with flexible bronchoscope(69461),?ION robotic assisted navigational bronchoscope?(47015)?was introduced-and right middle lobe lesion was accessed.? After confirming the location with?radial EBUS (34501), under the fluoroscopy guidance -we were able to obtain biopsies using brush, fine-needle, forceps.? Pathology reported suspicious malignancy on rapid onsite evaluation. Bronchoalveolar lavage was performed from the right middle lobe, 10 mL of saline was instilled, fluid return was 6 mL.? The fluid was mixed with blood. ? There was no overt bleeding.? The? ION robotic assisted navigational bronchoscope was retracted and endobronchial ultrasound was introduced. Using endobronchial ultrasound; identified station 7 lymph node and station 10R- biopsies were taken. ? Samples: A.Right middle lobe lesion 1.? Targeting the same area total of 8 passes were made using needle aspiration(97853); 3 passes were used for touch prep - reported inconclusive; remaining 4 passes were placed in formalin for histopathology 2. passes with?Cytobrush?(88873 )?performed- and samples placed in formalin and sent for microbiology 3.Targeting the same area 5 passes were made using forceps?(23698); 1 pass was used to prepare touch prep and sent for REILLY - reported suspicious for malignancy. samples from remaining 3 passes?were placed in formalin for histopathology. 4. remaining 1 Pass with forceps was placed in normal saline for microbiology cultures. 5.? Bronchoalveolar lavage?(76047)?from right middle lobe sent for afb, bacterial, fungal cultures as well as cytology B.? Station 7 lymph node: 5. .??EBUS guided fine-needle aspiration of station 7 lymph node (24796).? 3 passes were made and sample sent in formalin for histopathology 6. ??EBUS guided fine-needle aspiration of station 10R lymph node (71567).? 3 passes were made and sample sent in formalin for histopathology Complications: None.The patient was extubated and brought to the PACU in stable condition. Postprocedure chest x-ray:? No evidence of pneumothorax Disposition: Patient can be discharged home in stable condition. ? Pt, and his family are aware that I am going to call them to update final biopsy results once available.
--- NOTE | 2022-04-29 09:37 | XRR_ITS ---
PROCEDURE INFORMATION: Exam: XR Chest Exam date and time: 04/29/2022 9:37 AM Age: 87 years old Clinical indication: Device placement; Other: Bronchoscopy; Prior surgery; Surgery type: Post ion/ebus TECHNIQUE: Imaging protocol: Radiologic exam of the chest. Views: 1 view. COMPARISON: CT chest w con* [id number] 04/18/2022 11:54 AM FINDINGS: Tubes, catheters and devices: There is a neural stimulatory device projecting over the lower aspect of the thoracic spinal canal unchanged. Lungs: Lung volumes are decreased with scattered interstitial changes present peripherally. There is a cavitary mass in the right lower lobe again noted. Pleural spaces: Unremarkable. No pleural effusion. No pneumothorax. Heart/Mediastinum: Cardiac silhouette appears mildly enlarged, unchanged. Bones/joints: Unremarkable for age. XR/XR chest 1V portable [id number] IMPRESSION: Chronic interstitial lung changes with cavitary mass right lower lobe unchanged.
--- NOTE | 2022-04-29 09:40 | PC.NURSE ---
xray completed @ bedside
[2022-04-29 09:50] LABS: Cyto Order Verification Order Verified
--- NOTE | 2022-04-29 13:29 | ANE.PACU2 ---
Inpatient post-anesthesia follow up: Airway intact: Yes Vital signs: Temperature 97.7 F Pulse Rate 49 Respiratory Rate 16 Blood Pressure 150/69 Pulse Oximetry 99 Oxygen Delivery Me thod Room Air Oxygen Flow Rate Fraction of Inspir ed Oxygen Hydration adequate: Yes Nausea and vomiting: No Pain level: 1 Mental status: Baseline
== END 2022-04-29 10:45 | disposition home or self-care (01) ==
PROVIDERS: PCP Family Medicine; Visit Provider Internal Medicine Pulmonary Disease
PROC: 0BJ08ZZ Inspection of Tracheobronchial Tree, Via Natural or Artificial Opening Endoscopic (ICD-10-PCS; CPT 31622; principal; 2022-04-29 07:00)
PROC: BB4BZZZ Ultrasonography of Pleura (ICD-10-PCS; 2022-04-29 07:00)
DX: C34.2 Malignant neoplasm of middle lobe, bronchus or lung (principal); I25.10 Atherosclerotic heart disease of native coronary artery without angina pectoris; Z95.5 Presence of coronary angioplasty implant and graft; I25.2 Old myocardial infarction; E78.5 Hyperlipidemia, unspecified; G47.33 Obstructive sleep apnea (adult) (pediatric); N40.0 Benign prostatic hyperplasia without lower urinary tract symptoms; K21.9 Gastro-esophageal reflux disease without esophagitis; I10 Essential (primary) hypertension; Z87.891 Personal history of nicotine dependence
CPT/HCPCS: 31625; 31627; 31652; 71045; 76000; 80503; 87015; 87070; 87102; 87116; 87206; 87801; 88305; 88342; 93312; J1100; J2370; J2405; J2710; J3010; J3490; J7030

== ENCOUNTER → 2022-05-06 07:59 | Outpatient (BNVA) | payer MEDICARE, OTHER, SELFPAY | PROVIDERS: PCP Family Medicine; Visit Provider Internal Medicine Medical Oncology | DX: C34.2 Malignant neoplasm of middle lobe, bronchus or lung (principal) | CPT/HCPCS: 99205 ==

== ENCOUNTER 2022-05-08 08:58 | Outpatient (CLI) | payer MEDICARE, OTHER, SELFPAY | END 2022-05-08 08:59 | disposition home or self-care (01) | LOC: RT 08:59 | PROVIDERS: PCP Family Medicine; Visit Provider Internal Medicine Pulmonary Disease | DX: Z87.891 Personal history of nicotine dependence (principal); J98.4 Other disorders of lung; I26.99 Other pulmonary embolism without acute cor pulmonale | CPT/HCPCS: 94060; 94618; 94726; 94729; J7613 ==

== ENCOUNTER → 2022-05-13 12:21 | Outpatient (BNVA) | payer MEDICARE, OTHER, SELFPAY | PROVIDERS: PCP Family Medicine; Visit Provider Internal Medicine Pulmonary Disease | DX: J44.9 Chronic obstructive pulmonary disease, unspecified (principal); J98.4 Other disorders of lung; J84.9 Interstitial pulmonary disease, unspecified; I25.10 Atherosclerotic heart disease of native coronary artery without angina pectoris; Z95.5 Presence of coronary angioplasty implant and graft; Z87.891 Personal history of nicotine dependence | CPT/HCPCS: 99214 ==

== ENCOUNTER 2022-05-20 20:36 | Inpatient (IN) | payer MEDICARE, OTHER, SELFPAY ==
[2022-05-20] VITALS (9 sets, daily range): BP systolic 158–183; BP diastolic 88–94; PULSE 52–85; RESP 14–18; TEMP 36.4–36.9; O2SAT 93–98; BMI 24.5
--- NOTE | 2022-05-20 20:39 | XRR_ITS ---
PROCEDURE INFORMATION: Exam: XR Chest Exam date and time: 05/20/2022 9:07 PM Age: 87 years old Clinical indication: Chest pressure; Prior surgery; Surgery type: Coronary stents x6. Spinal stimulator. Left shoulder; Patient HX: C/O chest pain; Additional info: Cp TECHNIQUE: Imaging protocol: Radiologic exam of the chest. Views: 1 view. COMPARISON: CR XR chest 1V portable [id number] 04/29/2022 9:37 AM FINDINGS: Tubes, catheters and devices: Spinal stimulator. Lungs: Bibasilar atelectasis versus infiltrate. Pleural spaces: Unremarkable. No pleural effusion. No pneumothorax. Heart/Mediastinum: Unremarkable. No cardiomegaly. Bones/joints: Unremarkable. XR/XR chest 1V portable [id number] IMPRESSION: 1. Bibasilar atelectasis versus infiltrate. 2. Spinal stimulator.
--- NOTE | 2022-05-20 20:39 | ECG_ITS ---
[facility] Test Date: 2022-05-20 Pat Name: Elvis Paiz Department: Room: Gender: Male Analysis Lead: : 1935 Requested By: Akhil Cuadra Order Number: [id number] Benny MD: Castillo Winters M.D. Measurements Intervals [place] Rate: 68 P: 45 SD: 221 QRS: 12 QRSD: 104 T: -21 QT: 385 QTc: 410 Interpretive Statements SINUS RHYTHM WITH FIRST DEGREE AV BLOCK NONSPECIFIC ST & T-WAVE ABNORMALITY Compared to ECG 09/21/2021 01:09:43 T-wave abnormality now present Sinus bradycardia no longer present Electronically Signed On 05-21-2022 10:28:43 WINDOWS SYSTEMS ADMINISTRATOR by Castillo Winters M.D. [id number]
--- NOTE | 2022-05-20 20:45 | W.ED.CHESTPA ---
HPI - Chest Pain General: Chief Complaint: Chest Pain Stated Complaint: CP Time Seen by Provider: 05/20/22 20:38 Source: patient and EMS Mode of arrival: EMS Limitations: no limitations History of Present Illness: 87-year-old male states been having chest pain since 5:00. He states that pain is in the center of his chest denies any radiation and sharp in nature has had some dyspnea some nausea denies any diaphoresis states pain is currently a 4 out of 10 he denies any worsening improving factors. Associated symptoms: Deny abdominal pain, dyspnea, fever(s), nausea or vomiting Review of Systems Const: Denies: fever(s), chills, body aches or change in appetite Eyes: Denies: blurry vision or eye discomfort ENMT: Denies: throat pain or dental pain Card: Reports: chest pain Resp: Denies: dyspnea GI: Denies: abdominal pain, nausea, vomiting or diarrhea : Denies: dysuria Musc: Denies: neck pain or back pain Skin/Breast: Denies: rash Neuro: Denies: headache(s) Psych: Denies: depression Sebastien/Lymph: Denies: easy bruising All/Imm: Denies: urticaria PFSH ED PFSH: Medical History Aortic stenosis, mild ASHD (arteriosclerotic heart disease) BPH (benign prostatic hyperplasia) Chronic back pain COPD (chronic obstructive pulmonary disease) DJD (degenerative joint disease), lumbar Dyslipidemia GERD (gastroesophageal reflux disease) History of myocardial infarction Hypertension Non-small cell lung cancer ONEIL (obstructive sleep apnea) Symptomatic bradycardia Surgical History H/O bilateral cataract extraction History of shoulder surgery Left History of total left knee replacement Hx of transurethral resection of prostate Previous back surgery x 2 S/P appendectomy S/P carpal tunnel release S/P PTCA (percutaneous transluminal coronary angioplasty) Status post insertion of spinal cord stimulator Family History Father CAD (coronary artery disease) Mother CHF (congestive heart failure) Brother CAD (coronary artery disease) Myocardial infarction Social History Smoking and tobacco status: former smoker (50 years ago) Quit status (tobacco): has quit using tobacco Year quit tobacco: 1970 Former quit date comment: 2ppd X 18 years Alcohol intake: never Household members: spouse Marital status: service: No Current occupational status: retired Physical Exam Const: COMMON NORMALS: no acute distress, patient oriented x3 and healthy appearing HENMT: COMMON NORMALS: normocephalic and atraumatic HEAD & SCALP: normocephalic and atraumatic Eye: COMMON NORMALS: Equal, round and reactive pupils present and EOMs intact bilaterally PUPIL: Yes Equal, round and reactive pupils present Neck/C-Spine: COMMON NORMALS: full ROM and supple Chest: COMMONS NORMALS: normal inspection of the chest and normal palpation of entire chest wall Resp: COMMON NORMALS: normal respiratory effort, No retractions, No use of accessory muscles and clear to auscultation bilaterally AUSCULTATION: clear to auscultation bilaterally Cardio: COMMON NORMALS: regular rate, regular rhythm and No murmurs present (Cardio) RATE: regular rate RHYTHM: regular rhythm GI: COMMON NORMALS: Normal to inspection, nondistended, normoactive bowel sounds present, Soft to palpation, non-tender and no masses PALPATION: Yes Soft to palpation Extremity: COMMON NORMALS: normal to inspection and full ROM Neuro: COMMON NORMALS: patient oriented x3, moves all extremities and no focal motor deficits Psych: COMMON NORMALS: mental status grossly normal, Normal thought process present and cooperative THOUGHT PROCESS: Normal thought process present Skin: COMMON NORMALS: no rashes or lesions noted and no wounds GENERAL SKIN EXAM: no rashes or lesions noted Course Vital Signs: Vital signs: Vital Signs Temperature 98.5 F 05/20/22 20:37 Pulse Rate 77 05/20/22 20:37 Respiratory Rate 15 05/20/22 20:37 Blood Pressure 180/94 05/20/22 20:37 Pulse Oximetry 96 05/20/22 20:37 Oxygen Delivery Me thod 05/20/22 20:37 MDM - Chest Pain Medical Decision Making Patient presents here with chest pain he does have an elevated troponin consistent with an NSTEMI he has no ST elevation on his EKG I spoke to cardiology along with hospitalist will admit at this time. Lab Data 05/20/22 20:10 05/20/22 20:10 Radiology Impressions Chest X-Ray 05/20/22 20:39 IMPRESSION: 1. Bibasilar atelectasis versus infiltrate. 2. Spinal stimulator. Laboratory Results WBC 10.4 10^3/uL (4.0-10.0) H 05/20/22 20:10 RBC 4.83 10^6/uL (4.1-5.3) 05/20/22 20:10 Hgb 14.5 g/dL (11.7-16.6) 05/20/22 20:10 Hct 44.3 % (42.0-52.0) 05/20/22 20:10 MCV 91.7 fl (80-94) 05/20/22 20:10 MCH 30.0 pg (28.0-34.0) 05/20/22 20:10 MCHC 32.7 g/dL (30.0-36.0) 05/20/22 20:10 RDW 13.5 % (12.1-15.1) 05/20/22 20:10 Plt Count 264 10^3/cmm (130-400) 05/20/22 20:10 MPV 11.0 fL (7.4-10.4) H 05/20/22 20:10 Neut % (Auto) 55.7 % 05/20/22 20:10 Lymph % (Auto) 30.2 % 05/20/22 20:10 Humphreys % (Auto) 10.1 % 05/20/22 20:10 Eos % (Auto) 3.2 % 05/20/22 20:10 Baso % (Auto) 0.4 % 05/20/22 20:10 Neut # (Auto) 5.79 10^3/uL (1.8-7.7) 05/20/22 20:10 Lymph # (Auto) 3.1 10^3/uL (0.8-4.8) 05/20/22 20:10 Humphreys # (Auto) 1.1 10^3/uL (0.2-0.9) H 05/20/22 20:10 Eos # (Auto) 0.3 10^3/uL (0.0-0.8) 05/20/22 20:10 Baso # (Auto) 0.0 10^3/uL (0.0-0.1) 05/20/22 20:10 Nucleated RBC % (auto) 0 % 05/20/22 20:10 Nucleated RBCs # 0.0 /100WBC 05/20/22 20:10 PT 14.10 SECONDS (12.1-14.9) 05/20/22 20:10 INR 1.06 (0.8-1.2) 05/20/22 20:10 Sodium 138 mmol/L (136-145) 05/20/22 20:10 Potassium 4.0 mmol/L (3.5-5.1) 05/20/22 20:10 Chloride 103 mmol/L (98-107) 05/20/22 20:10 Carbon Dioxide 23 mmol/L (22-29) 05/20/22 20:10 Anion Gap 16.0 (5-19) 05/20/22 20:10 BUN 23 mg/dL (8-23) 05/20/22 20:10 Creatinine 0.9 mg/dL (0.7-1.2) 05/20/22 20:10 GFR Calculation Not Reportable 05/20/22 20:10 Glucose 130 mg/dL (65-115) H 05/20/22 20:10 Calculated Osmolality 291 mOsm/kg (285-295) 05/20/22 20:10 Calcium 9.6 mg/dL (8.5-10.5) 05/20/22 20:10 Total Bilirubin 0.2 mg/dL (0.15-1.2) 05/20/22 20:10 AST 19 U/L (0-40) 05/20/22 20:10 ALT 14 U/L (0-41) 05/20/22 20:10 Alkaline Phosphatase 145 U/L (40-130) H 05/20/22 20:10 Troponin T Baseline 212 ng/L (0-15) H* 05/20/22 20:10 Total Protein 7.2 g/dL (6.6-8.7) 05/20/22 20:10 Albumin 4.2 g/dL (3.5-5.2) 05/20/22 20:10 Globulin 3.0 g/dL (1.3-4.6) 05/20/22 20:10 EKG Data EKG 1: I personally reviewed and interpreted this EKG as follows: EKG interpretation date: 05/20/22 EKG interpretation time: 20:55 Interpretation: nsr hr [address] or t wave abnormalities qrs 102 qtc 402 Discharge Plan Discharge Patient Disposition: Home Admit Provider: Teresa Victor Clinical Impression: Non-ST elevation OK (NSTEMI) Condition: Stable Coding Level of Care Code ED Fountain Supervisor for Chg Fwd Exam Comprehensive
[2022-05-20 20:54] LABS: Basophils % 0.4 %; Eosinophils # 0.3 10^3/uL (0.0-0.8); Eosinophils % 3.2 %; Hematocrit 44.3 % (42.0-52.0); Hemoglobin 14.5 g/dL (11.7-16.6); Lymphocytes # 3.1 10^3/uL (0.8-4.8); Lymphocytes % 30.2 %; Mean Corpuscular HGB Conc 32.7 g/dL (30.0-36.0); Mean Corpuscular Volume 91.7 fl (80-94); Monocytes # 1.1 10^3/uL (0.2-0.9); Monocytes % 10.1 %; Neutrophils # 5.79 10^3/uL (1.8-7.7); Neutrophils % 55.7 %; Nucleated Red Blood Cells % 0 %; Platelet Count 264 10^3/cmm (130-400); Red Blood Count 4.83 10^6/uL (4.1-5.3); Red Cell Distribution Width 13.5 % (12.1-15.1); White Blood Count 10.4 10^3/uL (4.0-10.0)
[2022-05-20 21:06] LABS: INR 1.06 (0.8-1.2)
[2022-05-20 21:19] LABS: Alanine Aminotransferase 14 U/L (0-41); Albumin Level 4.2 g/dL (3.5-5.2); Alkaline Phosphatase 145 U/L (40-130); Aspartate Amino Transferase 19 U/L (0-40); Blood Urea Nitrogen 23 mg/dL (8-23); Calcium 9.6 mg/dL (8.5-10.5); Carbon Dioxide 23 mmol/L (22-29); Chloride 103 mmol/L (98-107); Glucose 130 mg/dL (65-115); Osmolality Calculated 291 mOsm/kg (285-295); Sodium 138 mmol/L (136-145); Total Bilirubin 0.2 mg/dL (0.15-1.2); Total Protein 7.2 g/dL (6.6-8.7)
[2022-05-20 21:56] LABS: Troponin(5th) Baseline 212 ng/L (0-15)
--- NOTE | 2022-05-20 22:01 | ECG_ITS ---
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 Measurements Intervals [place] Rate: 62 P: 42 LA: 218 QRS: 18 QRSD: 101 T: -21 QT: 395 QTc: 401 Interpretive Statements SINUS RHYTHM WITH FIRST DEGREE AV BLOCK NONSPECIFIC ST & T-WAVE ABNORMALITY Compared to ECG 05/20/2022 20:55:12 No significant changes Electronically Signed On 05-21-2022 10:30:36 SHOE PACKER by Castillo Winters M.D. [id number]
[2022-05-20] MEDS: enoxaparin 80 mg/0.8 mL Syringe SUBCUT (22:08)
--- NOTE | 2022-05-20 22:28 | P.HP_ITS ---
Providers/Chief Complaint Admitting Physician: Teresa Victor MD Primary Care Provider: Selvin Canela MD Chief Complaint: CP History of Present Illness Elvis Paiz is a 87 year old male with past medical history of chronic back pain, COPD, degenerative disc disease, dyslipidemia, GERD, history of MN, hypertension, non-small cell lung cancer, obstructive sleep apnea. Mild aortic stenosis presented to the hospital for complaint of chest pain. Patient recently got diagnosed with lung cancer and has been having hemoptysis intermittently. He was seen by pulmonology and biopsy was obtained via EBUS. Patient has also been seen by oncology. PET scan was scheduled for today at [place] however after patient got to [place] the scan was canceled due to the scanner being down. Patient got back to [place] and started having chest pain that was sudden in onset associated with shortness of breath. His gave him a DuoNeb breathing treatment and sublingual nitro which did relieve the pain. Since arrival to hospital patient has not had chest pain again. He described the pain in center of his chest that did not really radiate anywhere and it was sharp. Nitro and DuoNeb did improve it. Denies abdominal pain, fever, dyspnea, nausea, vomiting, diarrhea, constipation. Patient's states that most recent stent was placed in January 2022. Patient was taken off of the Plavix for about 11 days in order to have lung biopsy completed. Now patient is back on the Plavix. ED course: On arrival blood pressure 180/94, respiratory 15, pulse 77, temperat ure 98.5, saturating 96% on room air. Initial baseline troponin 200. EKG did not have any acute ST elevation. Case was discussed with alterations supervisor on-call by the ER physician. Cardiology will follow. Therapeutic Lovenox dose given in ER. Patient to be admitted at this time for work-up and management of chest pain. Patient and specifically requesting to see Dr. Cano. Medications/Allergies Home Medications Medication Instructions Recorded Confirmed Last Taken Type ascorbate calcium (vitamin C) 500 1,000 mg PO BID 08/30/19 05/20/22 05/20/22 08:00 History mg tablet cholecalciferol (vitamin D3) 125 125 mcg PO QAM 08/30/19 05/20/22 05/20/22 08:00 History mcg (5,000 unit) capsule aspirin 81 mg tablet,delayed 81 mg PO QPM 09/20/21 05/20/22 05/20/22 08:00 History release bimatoprost 0.01 % eye drops 1 drp ophthalmic (eye) QPM 09/20/21 05/20/22 05/20/22 18:00 History (Mirna) epinephrine 0.3 mg/0.3 mL 0.3 mg IM . DIRECTED PRN 09/20/21 05/20/22 Unknown History injection, auto-injector (EpiPen Allergic Reaction 2-Jose Angel) amlodipine 5 mg tablet 5 mg PO DAILY #30 tabs 09/21/21 05/20/22 05/20/22 08:00 Rx dorzolamide 22.3 mg-timolol 6.8 1 drp ophthalmic (eye) BID 12/12/21 05/20/22 05/20/22 18:00 History mg/mL eye drops clopidogrel 75 mg tablet (Plavix) 75 mg PO DAILY #30 tabs 01/30/22 05/20/22 05/20/22 08:00 Rx hydrocodone 10 mg-acetaminophen 1 tab PO 3XD PRN Pain 1 month #90 04/24/22 05/20/22 05/20/22 17:00 Rx 325 mg tablet tabs isosorbide mononitrate 60 mg 60 mg PO DAILY 04/29/22 05/20/22 05/20/22 08:00 History tablet,extended release 24 hr vitamin B complex (B 1 tab PO DAILY 05/06/22 05/13/22 Unknown History Complex-Vitamin B12 tablet) fluticasone propionate 50 2 spray intranasal DAILY PRN 05/13/22 05/20/22 Unknown History mcg/actuation nasal Allergic Symptoms spray,suspension (Allergy Relief (fluticasone)) albuterol sulfate 90 mcg/actuation 1 inh inhalation QID PRN shortness 05/20/22 05/20/22 05/20/22 17:00 Rx aerosol inhaler (Ventolin HFA) of breath or wheezing #6.7 grams magnesium citrate 100 mg tablet 200 mg PO QAM 05/20/22 05/20/22 05/20/22 08:00 History magnesium citrate 100 mg tablet 300 mg PO QPM 05/20/22 05/20/22 05/19/22 20:00 History nitroglycerin 0.4 mg sublingual 0.4 mg sublingual Q5M PRN chest 05/20/22 05/20/22 05/20/22 17:00 Rx tablet (Nitrostat) pain #25 tabs Allergies Allergy/AdvReac Type Severity Reaction Status Date / Time oxycodone Allergy Severe confusion Verified 05/13/22 12:30 venom-honey bee Allergy Severe ALGY-Anaphy Verified 05/13/22 12:30 laxis ezetimibe [From Zetia] AdvReac Severe ADR-Muscle Verified 05/13/22 12:30 Pain influenza virus vaccine, AdvReac Severe sick Verified 05/13/22 12:30 specific red yeast rice AdvReac Severe ADR-Fatigue Verified 05/13/22 12:30 d Qnuwair-LXC-QlH Reductase AdvReac Severe muscle Verified 05/13/22 12:30 Inhibitor aches [Lwxkkwm-Lwt-Owj Reductase Inhibitor] PFSH Acute PFSH: Medical History Aortic stenosis, mild ASHD (arteriosclerotic heart disease) BPH (benign prostatic hyperplasia) Chronic back pain COPD (chronic obstructive pulmonary disease) DJD (degenerative joint disease), lumbar Dyslipidemia GERD (gastroesophageal reflux disease) History of myocardial infarction Hypertension Non-small cell lung cancer ONEIL (obstructive sleep apnea) Symptomatic bradycardia Surgical History H/O bilateral cataract extraction History of shoulder surgery Left History of total left knee replacement Hx of transurethral resection of prostate Previous back surgery x 2 S/P appendectomy S/P carpal tunnel release S/P PTCA (percutaneous transluminal coronary angioplasty) Status post insertion of spinal cord stimulator Family History Father CAD (coronary artery disease) Mother CHF (congestive heart failure) Brother CAD (coronary artery disease) Myocardial infarction Social History Smoking and tobacco status: former smoker (50 years ago) Quit status (tobacco): has quit using tobacco Year quit tobacco: 1970 Former quit date comment: 2ppd X 18 years Alcohol intake: never Household members: spouse Marital status: service: No Current occupational status: retired Vitals/I&O/Wt Last Vital Signs Temp 98.5 F 05/20/22 20:37 Pulse 77 05/20/22 20:37 Resp 15 05/20/22 20:37 BP 180/94 05/20/22 20:37 Pulse Ox 96 05/20/22 20:37 O2 Del Method 05/20/22 20:37 Weight last 48 hrs Weight 75.296 kg Physical Exam Narrative: General: Alert oriented x3, patient seen sitting up in bed on room air. HEENT: Normocephalic, atraumatic, EOMI, Cardio: Regular rate rhythm, normal S1-S2, Respiratory: Mainly clear to auscultation upper lung hodges with crackles at bases bilaterally GI: Abdomen soft, nontender, nondistended, bowel sounds + Extremities: No bilateral lower extremity edema. 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 #History of CAD status post 6 stents 5 in 2011 and most recently January 2022 #Former smoker 2 pack/day x 18 years #Hypertension #Non-small cell lung cancer #Hemoptysis intermittently #Obstructive sleep apnea #COPD #Mild aortic stenosis #Dyslipidemia #A. fib, ? Presented with chest pain. Initial troponin 200. Discussed with on-call alterations supervisor. We will treat for NSTEMI. Lovenox therapeutic dose given. Continue aspirin, Plavix, Imdur, . Has hx of bradycardia, will not start beta [place] ? Serial EKGs ? Cardiology consulted. ? Check echo ? 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 Patient does have PET/CT at Drs. 20 May. He is supposed to see going for right middle lobectomy at some point. He was referred to CT surgery as an outpatient. He is currently followed up with pulmonology outpatient. Full code DVT prophylaxis: Therapeutic Lovenox Attestations Medical Necessity Statement*: Requires greater than 2 midnight stay for m anagement of NSTEMI. 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
[2022-05-20 23:05] LABS: Troponin 5 2HR Delta 7.5 ABS# (0-10)
[2022-05-20 23:06] LABS: Troponin 5 2HR 219.5 ng/L (0-15)
[2022-05-21] VITALS (11 sets, daily range): BP systolic 110–182; BP diastolic 86–91; PULSE 47–91; RESP 12–20; TEMP 36.4–36.7; O2SAT 94–99
[2022-05-21] MEDS: pantoprazole 40 mg SDV IVP (00:38)
[2022-05-21] MEDS: sodium chloride 0.9% 1,000 ML 75 ML IV (00:39)
--- NOTE | 2022-05-21 02:39 | ECG_ITS ---
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 Measurements Intervals [place] Rate: 47 P: 54 TN: 235 QRS: 0 QRSD: 102 T: -16 QT: 427 QTc: 378 Interpretive Statements SINUS BRADYCARDIA WITH FIRST DEGREE AV BLOCK Compared to ECG 05/20/2022 22:01:21 Sinus rhythm no longer present T-wave abnormality no longer present Electronically Signed On 05-21-2022 10:29:52 1ST PRESSMAN ON WEB PRESS by Castillo Winters M.D. [email or web address].[email or web address]/store/[id number]
[2022-05-21 03:09] LABS: Basophils % 0.5 %; Eosinophils # 0.3 10^3/uL (0.0-0.8); Eosinophils % 3.5 %; Hematocrit 39.6 % (42.0-52.0); Lymphocytes # 2.4 10^3/uL (0.8-4.8); Mean Corpuscular HGB Conc 32.8 g/dL (30.0-36.0); Mean Corpuscular Volume 91.5 fl (80-94); Mean Platelet Volume 10.9 fL (7.4-10.4); Monocytes # 0.8 10^3/uL (0.2-0.9); Monocytes % 9.5 %; Neutrophils # 5.01 10^3/uL (1.8-7.7); Neutrophils % 58.3 %; Nucleated Red Blood Cells % 0 %; Platelet Count 229 10^3/cmm (130-400); Red Blood Count 4.33 10^6/uL (4.1-5.3); Red Cell Distribution Width 13.4 % (12.1-15.1); White Blood Count 8.6 10^3/uL (4.0-10.0)
[2022-05-21 03:35] LABS: Alanine Aminotransferase 13 U/L (0-41); Albumin Level 3.6 g/dL (3.5-5.2); Alkaline Phosphatase 118 U/L (40-130); Anion Gap 12.7 (5-19); Aspartate Amino Transferase 23 U/L (0-40); Blood Urea Nitrogen 18 mg/dL (8-23); Calcium 9.2 mg/dL (8.5-10.5); Carbon Dioxide 26 mmol/L (22-29); Chloride 106 mmol/L (98-107); Globulin 3.4 g/dL (1.3-4.6); Glucose 100 mg/dL (65-115); Magnesium 2.2 mg/dL (1.7-2.3); Osmolality Calculated 294 mOsm/kg (285-295); Potassium 3.7 mmol/L (3.5-5.1); Sodium 141 mmol/L (136-145); Total Bilirubin 0.3 mg/dL (0.15-1.2)
[2022-05-21 03:42] LABS: NT Pro B Type Natriuretic Pept 851 pg/mL (0-450)
[2022-05-21 04:02] LABS: Troponin 5 6HR 300.4 ng/L (0-15); Troponin 5 6HR Delta 88.4 ng/L (0-12)
[2022-05-21] MEDS: HYDROcodone-acetaminophen 10-325 mg Tablet 1 TAB PO (04:12)
[2022-05-21] MEDS: FUROsemide 10 mg/mL SDV 4mL 40 MG IVP (04:12)
[2022-05-21] MEDS: cholecalciferol (vitamin D3) 1,000 unit Tablet 1000 UNIT PO (04:12)
[2022-05-21] MEDS: enoxaparin 100 mg/mL Syringe 80 MG SUBCUT (08:35)
[2022-05-21] MEDS: cyanocobalamin 1,000 mcg Tablet 1000 MCG PO (08:37)
[2022-05-21] MEDS: amlodipine 5 mg Tablet PO (08:38)
[2022-05-21] MEDS: isosorbide mononitrate ER 60 mg Tablet PO (08:38)
[2022-05-21] MEDS: clopidogrel 75 mg Tablet PO (08:38)
--- NOTE | 2022-05-21 09:15 | P.CONIM_ITS ---
Providers/Reason For Consult Consulting Physician/Specialty*: Cardiovascular medicine Reason for Consult*: Non-ST segment elevation DE Requesting Physician: Hospitalist Attending Physician: Dago Brown Primary Care Provider: Selvin Canela MD History of Present Illness History of Present Illness Elvis Paiz is a 87 year old male who has a complex multisystem history. I have taken care of Mr. Paiz for many years. He has underlying coronary artery disease and remotely has had stents placed to his circumflex, both marginals and most of his right coronary artery. In January of this year he was having some chest discomfort. Stress testing revealed large areas of ischemia in the distribution of both the right and the circumflex. He underwent angiography then. There was a greater than 95% stenosis in the proximal circumflex just past the ostium. This was prior to previously placed stents. He also had in-stent restenosis of both obtuse marginal stents and of the distal portion of the stents in the right coronary artery. His distal right coronary artery is a very small vessel with severe diffuse disease. At that time I chose to stent the proximal circumflex hoping that we could subsequently treat him medically and prevent him from having angina. Since there were so many diffuse lesions in the in-stent restenosis areas there was no clear avenue for intervention there and it likely would not have been successful. Plan worked until 17 April when he started having hemoptysis. He saw his primary care provider. He held his Plavix because of the bleeding. Chest x-ray and then CT scan reveals a lung mass. He has had biopsy-proven squamous cell carcinoma of the lung. Staging is still incomplete. He saw Dr. Nino on the last . PET scan was scheduled for yesterday in [place]. He was driving there and was contacted by the PET scanning people when he was about three [address] to [place] telling them that the scanner was down. When he came back from [place] he began to have some chest discomfort. In talking to him he has had some chest discomfort off and on since the first of last month since the biopsy was done. He was placed back on Plavix the other day and is still having some intermittent episodes of a small amount of hemoptysis. He came to the emergency room last night was readmitted. His troponin is 212, 219 and 300. His BNP is 815. His EKG showed nonspecific ST and T wave changes primarily in the inferior and lateral leads which is new from EKGs in September. An echo done last evening reveals normal LV function. Currently he is free of any chest discomfort. He has a number of other complicated problems including interstitial lung disease, COPD, prior tobacco abuse, dyslipidemia, intermittent type II second- degree AV block, mild aortic stenosis, hypertension and sleep apnea. Review of Systems Narrative: Review of systems is diffusely positive to include shortness of breath, hemoptysis, chest discomfort, fatigue. Medications/Allergies Home Medications Medication Instructions Recorded Confirmed Last Taken Type ascorbate calcium (vitamin C) 500 1,000 mg PO BID 08/30/19 05/20/22 05/20/22 08:00 History mg tablet cholecalciferol (vitamin D3) 125 125 mcg PO QAM 08/30/19 05/20/22 05/20/22 08:00 History mcg (5,000 unit) capsule aspirin 81 mg tablet,delayed 81 mg PO QPM 09/20/21 05/20/22 05/20/22 08:00 History release bimatoprost 0.01 % eye drops 1 drp ophthalmic (eye) QPM 09/20/21 05/20/22 05/20/22 18:00 History (Lumigan) epinephrine 0.3 mg/0.3 mL 0.3 mg IM . DIRECTED PRN 09/20/21 05/20/22 Unknown History injection, auto-injector (EpiPen Allergic Reaction 2-Jose Angel) amlodipine 5 mg tablet 5 mg PO DAILY #30 tabs 09/21/21 05/20/22 05/20/22 08:00 Rx dorzolamide 22.3 mg-timolol 6.8 1 drp ophthalmic (eye) BID 12/12/21 05/20/22 05/20/22 18:00 History mg/mL eye drops clopidogrel 75 mg tablet (Plavix) 75 mg PO DAILY #30 tabs 01/30/22 05/20/22 05/20/22 08:00 Rx hydrocodone 10 mg-acetaminophen 1 tab PO 3XD PRN Pain 1 month #90 04/24/22 05/20/22 05/20/22 17:00 Rx 325 mg tablet tabs isosorbide mononitrate 60 mg 60 mg PO DAILY 04/29/22 05/20/22 05/20/22 08:00 History tablet,extended release 24 hr vitamin B complex (B 1 tab PO DAILY 05/06/22 05/13/22 Unknown History Complex-Vitamin B12 tablet) fluticasone propionate 50 2 spray intranasal DAILY PRN 05/13/22 05/20/22 Unknown History mcg/actuation nasal Allergic Symptoms spray,suspension (Allergy Relief (fluticasone)) albuterol sulfate 90 mcg/actuation 1 inh inhalation QID PRN shortness 05/20/22 05/20/22 05/20/22 17:00 Rx aerosol inhaler (Ventolin HFA) of breath or wheezing #6.7 grams magnesium citrate 100 mg tablet 200 mg PO QAM 05/20/22 05/20/22 05/20/22 08:00 History magnesium citrate 100 mg tablet 300 mg PO QPM 05/20/22 05/20/22 05/19/22 20:00 History nitroglycerin 0.4 mg sublingual 0.4 mg sublingual Q5M PRN chest 05/20/22 05/20/22 05/20/22 17:00 Rx tablet (Nitrostat) pain #25 tabs Allergies Allergy/AdvReac Type Severity Reaction Status Date / Time oxycodone Allergy Severe confusion Verified 05/13/22 12:30 venom-honey bee Allergy Severe ALGY-Anaphy Verified 05/13/22 12:30 laxis ezetimibe [From Zetia] AdvReac Severe ADR-Muscle Verified 05/13/22 12:30 Pain influenza virus vaccine, AdvReac Severe sick Verified 05/13/22 12:30 specific red yeast rice AdvReac Severe ADR-Fatigue Verified 05/13/22 12:30 d [id number] Reductase AdvReac Severe muscle Verified 05/13/22 12:30 Inhibitor aches [[id number] Reductase Inhibitor] Current Medications Generic Name Dose Route Start Last Admin Trade Name Freq PRN Reason Stop Dose Admin Hydrocodone Bitart/Acetaminophen 1 tab 05/20/22 23:29 05/21/22 04:12 Hydrocodone-Acetaminophen 10-325 Mg Tablet PO 1 tab TID PRN Administration Pain Amlodipine Besylate 5 mg 05/21/22 09:00 05/21/22 08:38 Amlodipine 5 Mg Tablet PO 5 mg DAILY ROSSY Administration Clopidogrel Bisulfate 75 mg 05/21/22 09:00 05/21/22 08:38 Clopidogrel 75 Mg Tablet PO 75 mg DAILY ROSSY Administration Cyanocobalamin 1,000 mcg 05/21/22 09:00 05/21/22 08:37 Cyanocobalamin 1,000 Mcg Tablet PO 1,000 mcg DAILY ROSSY Administration Enoxaparin Sodium 80 mg 05/21/22 10:00 05/21/22 08:35 Enoxaparin 100 Mg/Ml Syringe 1 mg/kg (80 mg) 80 mg SUBCUT Administration Q12H ROSSY Isosorbide Mononitrate 60 mg 05/21/22 09:00 05/21/22 08:38 Isosorbide Mononitrate Er 60 Mg Tablet PO 60 mg DAILY ROSSY Administration Pantoprazole Sodium 40 mg 05/20/22 23:15 05/21/22 00:38 Pantoprazole 40 Mg Sdv IVP 40 mg Q24H ROSSY Administration Vitamin D 1,000 unit 05/21/22 06:00 05/21/22 04:12 Cholecalciferol (Vitamin D3) 1,000 Unit Tablet PO 1,000 unit QAM ROSSY Administration PFSH Acute PFSH: Medical History Aortic stenosis, mild ASHD (arteriosclerotic heart disease) BPH (benign prostatic hyperplasia) Chronic back pain COPD (chronic obstructive pulmonary disease) DJD (degenerative joint disease), lumbar Dyslipidemia GERD (gastroesophageal reflux disease) History of myocardial infarction Hypertension Non-small cell lung cancer ONEIL (obstructive sleep apnea) Symptomatic bradycardia Surgical History H/O bilateral cataract extraction History of shoulder surgery Left History of total left knee replacement Hx of transurethral resection of prostate Previous back surgery x 2 S/P appendectomy S/P carpal tunnel release S/P PTCA (percutaneous transluminal coronary angioplasty) Status post insertion of spinal cord stimulator Family History Father CAD (coronary artery disease) Mother CHF (congestive heart failure) Brother CAD (coronary artery disease) Myocardial infarction Social History Smoking and tobacco status: former smoker (50 years ago) Quit status (tobacco): has quit using tobacco Year quit tobacco: 1971 Former quit date comment: 2ppd X 18 years Alcohol intake: never Household members: spouse Marital status: service: No Current occupational status: retired Vitals/I&O/Wt Last Vital Signs Temp 97.6 F 05/21/22 07:45 Pulse 57 L 05/21/22 08:48 Resp 16 05/21/22 08:48 BP 182/86 05/21/22 08:25 Pulse Ox 97 05/21/22 08:48 O2 Del Method 05/21/22 08:48 05/20/22 05/21/22 05/21/22 22:59 06:59 14:59 Intake Total 28.75 / 28.75 Balance 28.75 / 28.75 Weight last 48 hrs Weight 166 lb Physical Exam Narrative: GENERAL: In general he looks and feels well and better than his chart would suggest HEENT: Exam within normal limits. NECK: Supple without jugular vein distention. The carotid upstroke is normal without bruits. BACK: Exam normal. LUNGS: Decreased breath sounds. Occasional scattered wheezes. HEART: Regular rate and rhythm. ABDOMEN: Benign without organomegaly or tenderness. EXTREMITIES: No edema. NEUROLOGIC: Exam normal. SKIN: Unremarkable. 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 He has multiple areas of diffuse in-stent restenosis of both the right coronary artery and the circumflex. It is difficult to tell whether this is the culprit at this time or the fact that he went off Plavix for a while could have affected the more recently placed stent. His LAD was relatively free of disease so this is something in either the right coronary or the circumflex or combination of both. The new EKG changes would be consistent with that. The diagnosis of lung cancer since the last intervention has complicated things and limits our ability to use anticoagulants and antiplatelet agents. I had a very long discussion with the patient, his and son who are in the room and his daughter who was via FaceTime on the phone. I basically gave them 2 options. The first is to try to treat him medically w ith reinstitution of the Plavix and adjustment of his antianginal medicines. The second would be to perform angiography and see if there is anything new that could be intervened upon which might help. My preference is to try the more noninvasive method first and then use angiography if that does not work. They seem to be in agreement. We still need PET scanning and staging of the tumor to figure out whether or not he would be a surgical candidate. If he is, his cardiac risk is going to be high. He is not on a beta-adelaide because of his previous evidence of second-degree heart block. He is on amlodipine 5 mg. That could be increased. The other option is to increase his long-acting nitrate and possibly add Ranexa. Consult Attestations Medical Necessity Statement: Hospitalization for non-ST segment elevation DE and lung cancer. 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
--- NOTE | 2022-05-21 18:59 | PM.DCS ---
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: Status: Acute (5) Ex-smoker: Status: Acute (6) Presence of stent in coronary artery in patient with coronary artery disease: Status: Acute (7) Cavitating mass in right middle lung lobe: Status: Acute (8) Hemoptysis: Status: Acute (9) Abnormal stress test: Status: Acute (10) Chronic back pain: Status: Acute (11) ONEIL (obstructive sleep apnea): Status: Acute (12) Hypertension: Status: Acute (13) Aortic stenosis, mild: Status: Acute (14) ASHD (arteriosclerotic heart disease): Status: Acute (15) Myocardial infarction: Status: Acute Reason for Visit Reason for Visit: CP Brief History: Elvis Paiz is a 87 year old male with past medical history of chronic back pain, COPD, degenerative disc disease, dyslipidemia, GERD, history of AR, hypertension, non-small cell lung cancer, obstructive sleep apnea.? Mild aortic stenosis presented to the hospital for complaint of chest pain.? Patient recently got diagnosed with lung cancer and has been having hemoptysis intermittently.? He was seen by pulmonology and biopsy was obtained via EBUS.? Patient has also been seen by oncology.? PET scan was scheduled for today at [facility] however after patient got to [facility] the scan was canceled due to the scanner being down.? Patient got back to [place] and started having chest pain that was sudden in onset associated with shortness of breath.? His gave him a DuoNeb breathing treatment and sublingual nitro which did relieve the pain.? Since arrival to hospital patient has not had chest pain again.? He described the pain in center of his chest that did not really radiate anywhere and it was sharp.? Nitro and DuoNeb did improve it.? Denies abdominal pain, fever, dyspnea, nausea, vomiting, diarrhea, constipation.? Patient's states that most recent stent was placed in January 2022.? Patient was taken off of the Plavix for about 11 days in order to have lung biopsy completed.? Now patient is back on the Plavix. ED course: On arrival blood pressure 180/94, respiratory 15, pulse 77, temperature 98.5, saturating 96% on room air.? Initial baseline troponin 200.? EKG did not have any acute ST elevation.? Hospital Course Hospital Course Troponin with rise at 6 hours up to 300.4. He was also assessed by echocardiogram showing normal ejection fraction, grade 2 diastolic dysfunction, left atrial dilation, mild mitral regurgitation. Thickening of the aortic valve, mild aortic stenosis. Moderate aortic regurgitation. Mild TVR. Mild pulmonary hypertension. Mild PVR. No significant change compared to prior echo. He was resumed on Plavix. He remains chest pain-free during hospitalization. He was assessed by cardiology. The patient is family had a lengthy discussion with cardiology due to complicated cardiac history and presentation with rise in troponin, nonspecific EKG changes, episode of chest pain. He was recently also diagnosed with pulmonary malignancy, pending additional work-up with PET scan. Has had intermittent episodes of small amounts of hemoptysis. So far has tolerated Plavix. With recent angiogram in January revealing proximal stenosis 2 prior stents of circumflex artery, which was stented, as well as in-stent restenosis of both obtuse marginal stents and distal portion of the stents in the RCA. Distal RCA very small vessel with severe diffuse disease. Due to multiple diffuse lesions in the in-stent restenosis areas there is no clear avenue for intervention considered likely would not have been successful. Options were discussed with him and family, including treatment medically with continuation of Plavix, adjustment of antianginal medications, versus repeat angiography with consideration of possible intervention. Consensus decision was to continue medical treatment for now reserving angiogram unless this did not work. His Imdur dose was increased to 60 mg twice daily. Consideration further adding Ranexa. Possibly increasing amlodipine. Plan this morning was to monitor him in the hospital further following episode of chest pain with suspected ischemia, as well as with adjustment of his medications. However, he decided he wanted to discharge home tonight. He has remained chest pain-free, has ambulated in the hallway without any symptoms. Discussed concerns and risk with him and his family and the idea behind monitoring further in the hospital. They verbalized understanding. His tax staff accountant was contacted and thought that it was reasonable for him to discharge with him remaining chest pain-free. He knows to seek medical attention immediately in case of any concerning symptoms and will be following up in office. Physical Exam Narrative: During second visit surrounded by family. Denies any chest pain or pressure, no discomfort. He got up and ambulated without any symptoms, no lightheadedness or dizziness. Requests to be discharged home. Const: COMMON NORMALS: patient oriented x3 and alert GENERAL APPEARANCE: cooperative ORIENTATION/CONSCIOUSNESS: Yes awake HENMT: COMMON NORMALS: oropharynx normal Neck/C-Spine: COMMON NORMALS: no JVD Resp: COMMON NORMALS: normal respiratory effort and clear to auscultation bilaterally AUSCULTATION: clear to auscultation bilaterally Cardio: COMMON NORMALS: no JVD, regular rhythm, S1 normal heart sound present, S2 normal heart sound present and No murmurs present (Cardio) RHYTHM: regular rhythm HEART SOUNDS: S1 normal heart sound present and S2 normal heart sound present GI: COMMON NORMALS: Normal to inspection, nondistended, normoactive bowel sounds present, Soft to palpation and non-tender PALPATION: Yes Soft to palpation Extremity: COMMON NORMALS: no joint enlargement and no pedal edema Neuro: COMMON NORMALS: patient oriented x3 and moves all extremities SENSORIUM/ORIENTATION: Yes alert Skin: COMMON NORMALS: no rashes or lesions noted GENERAL SKIN EXAM: no rashes or lesions noted Discharge Data Studies Completed and Pending Completed Studies During Hospitalization Category Date Time Status XR chest 1V portable [id number] Stat Exams 05/20/22 20:39 Completed CV. echo complete* [id number] Urgent Ultrasound 05/21/22 23:06 Completed Radiology Impressions Chest X-Ray 05/20/22 20:39 IMPRESSION: 1. Bibasilar atelectasis versus infiltrate. 2. Spinal stimulator. Laboratory Results WBC 8.6 10^3/uL (4.0-10.0) 05/21/22 02:18 RBC 4.33 10^6/uL (4.1-5.3) 05/21/22 02:18 Hgb 13.0 g/dL (11.7-16.6) 05/21/22 02:18 Hct 39.6 % (42.0-52.0) L 05/21/22 02:18 MCV 91.5 fl (80-94) 05/21/22 02:18 MCH 30.0 pg (28.0-34.0) 05/21/22 02:18 MCHC 32.8 g/dL (30.0-36.0) 05/21/22 02:18 RDW 13.4 % (12.1-15.1) 05/21/22 02:18 Plt Count 229 10^3/cmm (130-400) 05/21/22 02:18 MPV 10.9 fL (7.4-10.4) H 05/21/22 02:18 Neut % (Auto) 58.3 % 05/21/22 02:18 Lymph % (Auto) 28.0 % 05/21/22 02:18 Darke % (Auto) 9.5 % 05/21/22 02:18 Eos % (Auto) 3.5 % 05/21/22 02:18 Baso % (Auto) 0.5 % 05/21/22 02:18 Neut # (Auto) 5.01 10^3/uL (1.8-7.7) 05/21/22 02:18 Lymph # (Auto) 2.4 10^3/uL (0.8-4.8) 05/21/22 02:18 Darke # (Auto) 0.8 10^3/uL (0.2-0.9) 05/21/22 02:18 Eos # (Auto) 0.3 10^3/uL (0.0-0.8) 05/21/22 02:18 Baso # (Auto) 0.0 10^3/uL (0.0-0.1) 05/21/22 02:18 Nucleated RBC % (auto) 0 % 05/21/22 02:18 Nucleated RBCs # 0.0 /100WBC 05/21/22 02:18 PT 14.10 SECONDS (12.1-14.9) 05/20/22 20:10 INR 1.06 (0.8-1.2) 05/20/22 20:10 Sodium 141 mmol/L (136-145) 05/21/22 02:18 Potassium 3.7 mmol/L (3.5-5.1) 05/21/22 02:18 Chloride 106 mmol/L (98-107) 05/21/22 02:18 Carbon Dioxide 26 mmol/L (22-29) 05/21/22 02:18 Anion Gap 12.7 (5-19) 05/21/22 02:18 BUN 18 mg/dL (8-23) 05/21/22 02:18 Creatinine 0.8 mg/dL (0.7-1.2) 05/21/22 02:18 GFR Calculation Not Reportable 05/21/22 02:18 Glucose 100 mg/dL (65-115) 05/21/22 02:18 Calculated Osmolality 294 mOsm/kg (285-295) 05/21/22 02:18 Calcium 9.2 mg/dL (8.5-10.5) 05/21/22 02:18 Magnesium 2.2 mg/dL (1.7-2.3) 05/21/22 02:18 Total Bilirubin 0.3 mg/dL (0.15-1.2) 05/21/22 02:18 AST 23 U/L (0-40) 05/21/22 02:18 ALT 13 U/L (0-41) 05/21/22 02:18 Alkaline Phosphatase 118 U/L (40-130) 05/21/22 02:18 Troponin T Baseline 212 ng/L (0-15) H* 05/20/22 20:10 Troponin T 120 Minute 219.5 ng/L (0-15) H 05/20/22 22:13 Delta Troponin T 7.5 ABS# (0-10) 05/20/22 22:13 Troponin T Hi Sens 6Hr 300.4 ng/L (0-15) H 05/21/22 02:18 Troponin T Hi Sens 6Hr Delta 88.4 ng/L (0-12) H* 05/21/22 02:18 NT-Pro-B Natriuret Pep 851 pg/mL (0-450) H 05/21/22 02:18 Total Protein 7.0 g/dL (6.6-8.7) 05/21/22 02:18 Albumin 3.6 g/dL (3.5-5.2) 05/21/22 02:18 Globulin 3.4 g/dL (1.3-4.6) 05/21/22 02:18 Vitals Last Vital Signs Temp 98.0 F 05/21/22 16:50 Pulse 88 05/21/22 16:50 Resp 18 05/21/22 16:50 BP 110/88 05/21/22 16:50 Pulse Ox 95 05/21/22 16:50 O2 Del Method 05/21/22 08:48 Discharge Plan Discharge Patient Disposition: Home Condition: Stable Prescriptions: Continued ascorbate calcium (vitamin C) 500 mg tablet 1,000 mg PO BID cholecalciferol (vitamin D3) 125 mcg (5,000 unit) capsule 125 mcg PO QAM dorzolamide-timolol 22.3-6.8 mg/mL drops 1 drp ophthalmic (eye) BID Rx Instructions: left eye fluticasone propionate [Allergy Relief (fluticasone)] 50 mcg/actuation spray,suspension 2 spray intranasal DAILY PRN (Reason: Allergic Symptoms) Rx Instructions: administer into each nostril vitamin B complex [B Complex-Vitamin B12] Tablet 1 tab PO DAILY hydrocodone-acetaminophen 10-325 mg tablet 1 tab PO 3XD PRN (Reason: Pain) 30 Days Qty: 90 0RF albuterol sulfate [Ventolin HFA] 90 mcg/actuation HFA aerosol inhaler 1 inh inhalation QID PRN (Reason: shortness of breath or wheezing) Qty: 6.7 3RF nitroglycerin [Nitrostat] 0.4 mg tablet, sublingual 0.4 mg SUBLINGUAL Q5M PRN (Reason: chest pain) Qty: 25 2RF aspirin 81 mg Tablet,Delayed Release (Dr/Ec) 81 mg PO QPM epinephrine [EpiPen 2-Jose Angel] 0.3 mg/0.3 mL Auto-Injector 0.3 mg IM . DIRECTED PRN (Reason: Allergic Reaction) Lumigan 0.01 % Drops 1 drp OPHTHALMIC (EYE) QPM Rx Instructions: left eye amlodipine 5 mg Tablet 5 mg PO DAILY Qty: 30 0RF clopidogrel [Plavix] 75 mg tablet 75 mg PO DAILY Qty: 30 6RF magnesium citrate 100 mg Tablet 200 mg PO QAM magnesium citrate 100 mg Tablet 300 mg PO QPM Changed isosorbide mononitrate 60 mg tablet extended release 24 hr 60 mg PO BIDWM Qty: 60 0RF Rx Instructions: TAKE 1 TABLET BY MOUTH DAILY Discharge Orders: Discharge Order (Routine); Ordered 05/21/22 Ordered By: Dago Brown Referrals: Beverley Randall FNP [Nurse Practitioner] - 1 week Selvin Canela MD [Primary Care Provider] - 4-7 days Discharge Diet: Cardiac Discharge Activity: Limit activity as instructed Patient Instructions: Isosorbide Mononitrate (By mouth) (Imdur, Imdur ER, Ismo), Clopidogrel (By mouth), Heart Attack (DC), Coronary Artery Disease (DC), Coronary Artery Disease (GEN), Chest Pain (DC) Activity Restrictions/Additional Instructions: Continue medications as recommended by cardiology. Measure blood pressure 3 times daily, record values to bring to her appointment. Contact your tax staff accountant office in case of any symptoms or concerns or for medication adjustments. In case of not resolving chest pain or pressure or any other concerning symptoms call 911. Discharge Attestations Time Spent in Discharge Care*: greater than 30 min Status at Discharge: Cognitive status at discharge: cognitively intact, Behavioral status at discharge: cooperative, Quality Metrics Clinical Quality Measures [ Acute Myocardial Infaction { Clinical Trial Participant: No; Contraindication to aspirin: None; Aspirin prescribed; Contraindication to statin: Adverse reaction to drug; Contraindication to PCI: Treatment delay - patient choice;}] Coding Level of Care Code Acute Chg FW DC note Diagnoses Non-ST elevation AR (NSTEMI) I21.4 COPD (chronic obstructive pulmonary disease) J44.9 Chronic interstitial lung disease J84.9 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
--- NOTE | 2022-05-21 23:06 | USCV_ITS ---
Elvis Paiz Age: 87 Gender: M : 1935 Exam Date: 05/21/2022 00:03 Ordering Phys: Teresa Victor MD Technologist: HAMZAH Exam Location: [facility] [place] Indication: Chest pain. History of AL 2011. multiple cardiac stents. BP: 183 / 90 HR: 51 Rhythm: Sinus Technical Quality: Adequate MEASUREMENTS (Male / Female) Normal Values 2D ECHO LV Diastolic Diameter PLAX 4.0 cm 4.2 - 5.9 / 3.9 - 5.3 cm LV Systolic Diameter PLAX 3.0 cm IVS Diastolic Thickness 1.4 cm 0.6 - 1.0 / 0.6 - 0.9 cm IVS Systolic Thickness 2.0 cm LVPW Diastolic Thickness 1.1 cm 0.6 - 1.0 / 0.6 - 0.9 cm LVPW Systolic Thickness 1.2 cm LVOT Diameter 2.0 cm LV Ejection Fraction 2D Teich 50.6 % LV Ejection Fraction MOD 2C 46.4 % LV Ejection Fraction 2C AL 45.6 % LA Diameter 4.6 cm LA Width 4.1 cm LA Height 4.7 cm RA Width 3.5 cm RA Height 6.5 cm Aorta at Sinotubular Diameter 3.5 cm IVC Diameter 1.9 cm M-MODE Aortic Annulus Diameter 3.9 cm LA Ao Ratio MM 1.1 MV E Point Septal Separation 0.4 cm DOPPLER AV Peak Velocity 214.0 cm/s LVOT Peak Velocity 81.0 cm/s AV Area Cont Eq vti 1.3 cm squared AV Area Cont Eq pk 1.2 cm squared MV Area PHT 3.4 cm squared Mitral E to A Ratio 1.0 MV E' Velocity 49.5 cm/s Mitral E to MV E' Ratio 18.1 Mitral E to LV E' Lateral Ratio 18.1 Mitral E to LV E' Septal Ratio 18.1 TR Peak Velocity 248.7 cm/s TR Peak Gradient 24.7 mmHg TV Peak E Velocity 59.0 cm/s Right Atrial Pressure 10.0 mmHg Pulmonary Artery Systolic Pressu 34.7 mmHg PV Peak Velocity 108.0 cm/s RV Acceleration Time 0.1 s RV Ejection Time 0.4 s RV AcT/ET 0.2 FINDINGS Left Ventricle Left ventricle is normal in size. LV systolic function is normal with EF of 50-55%. No regional wall motion abnormalities are seen. Grade 2 diastolic dysfunction Right Ventricle Normal in size and function Right Atrium Normal in size Left Atrium Dilated Mitral Valve Structurally normal mitral valve. Mild mitral regurgitation. Aortic Valve Aortic valve is thickened. Moderate aortic regurgitation. Mild aortic stenosis with aortic valve area of 1.27cm2 and mean gradient across the aortic valve of 9mmHg. Tricuspid Valve Mild tricuspid regurgitation. RVSP is 35-40mmHg. This is consistent with mild pulmonary hypertension Pulmonic Valve Not well visualized. Mild pulmonic regurgitation. Pericardium Normal Aorta Normal in size IVC Appears to be normal CONCLUSIONS LV systolic function is normal with EF of 50 to 55%. Grade 2 diastolic dysfunction Left atrial dilation Mild mitral regurgitation is seen. Aortic valve is thickened. Mild aortic stenosis. Moderate aortic regurgitation Mild tricuspid regurgitation. Mild pulmonary hypertension Mild pulmonic regurgitation. Compared to prior echocardiogram from 07/2021, no significant changes are seen. Castillo Winters MD (Electronically Signed) Final Date: 21 May 2022 09:19 S
== END 2022-05-21 17:12 | disposition home or self-care (01) | DRG 281 ==
LOC: ER 20:54 → CSU 22:20
PROVIDERS: Admitting Provider Internal Medicine; Emergency Provider Emergency Medicine; PCP Family Medicine; Visit Provider Internal Medicine
DX: T82.855A Stenosis of coronary artery stent, initial encounter (principal); I21.4 Non-ST elevation (NSTEMI) myocardial infarction; C34.2 Malignant neoplasm of middle lobe, bronchus or lung; R04.2 Hemoptysis; Y71.1 Therapeutic (nonsurgical) and rehabilitative cardiovascular devices associated with adverse incidents; I25.10 Atherosclerotic heart disease of native coronary artery without angina pectoris; Z95.5 Presence of coronary angioplasty implant and graft; J44.9 Chronic obstructive pulmonary disease, unspecified; M47.816 Spondylosis without myelopathy or radiculopathy, lumbar region; G89.29 Other chronic pain; G47.33 Obstructive sleep apnea (adult) (pediatric); I10 Essential (primary) hypertension; I08.3 Combined rheumatic disorders of mitral, aortic and tricuspid valves; I25.2 Old myocardial infarction; E78.5 Hyperlipidemia, unspecified; K21.9 Gastro-esophageal reflux disease without esophagitis; I27.20 Pulmonary hypertension, unspecified; Z79.891 Long term (current) use of opiate analgesic; Z79.51 Long term (current) use of inhaled steroids; Z96.652 Presence of left artificial knee joint; N40.0 Benign prostatic hyperplasia without lower urinary tract symptoms; Z79.02 Long term (current) use of antithrombotics/antiplatelets
CPT/HCPCS: 36415; 71045; 80053; 83735; 83880; 84484; 85025; 85610; 93005; 93306; 96372; 97110; 97161; 97166; 99285; C9113; J1650; J1940; J7030

== ENCOUNTER → 2022-05-29 13:43 | Outpatient (BNVA) | payer MEDICARE, OTHER, SELFPAY | PROVIDERS: PCP Family Medicine; Visit Provider Nurse Practitioner Family | DX: I25.10 Atherosclerotic heart disease of native coronary artery without angina pectoris (principal); I10 Essential (primary) hypertension; Z87.891 Personal history of nicotine dependence | CPT/HCPCS: 99214 ==

== ENCOUNTER 2022-05-31 08:11 | Outpatient (CLI) | payer MEDICARE, OTHER, SELFPAY ==
--- NOTE | 2022-05-31 08:30 | PETR_ITS ---
PROCEDURE INFORMATION: Exam: PET/CT Skull Base to Mid-thigh Exam date and time: 05/31/2022 8:59 AM Age: 87 years old Clinical indication: Condition or disease; Primary cancer: Lung cancer; Initial oncological staging assessment; Patient HX: Mass right middle lobe, cavitary neoplasm, malignant neoplasm of middle lobe; Additional info: Lung cancer, PET needed for staging, 04/18/22 CT chest: LABS AND CLINICAL REPORTS: Glucose: 101 mg/dl Treatment strategy for malignancy (PET staging): Initial Staging (PI) TECHNIQUE: Imaging protocol: Following at least four-hour fasting and following the injection of F-18-FDG, low dose CT images were obtained. Then, PET images were obtained. Attenuation corrected images were constructed using the CT scan. Fused images of PET and CT were reviewed. The standardized uptake values (SUV) reported below are maximum values within a region of interest, expressed in gm/ml. Exam includes orbital meatal line to mid-thigh. Radiopharmaceutical: 12.55 mCi F-18 FDG (Fluorodeoxyglucose), IV. Time of imaging post radiopharmaceutical administration: 44.8 minutes. Injection site: site COMPARISON: CT chest w con* [id number] 04/18/2022 11:54 AM FINDINGS: Tubes, catheters and devices: A spinal cord stimulator is positioned with its tip in the posterior epidural space at the T7/8 level. Brain: Visualized brain has normal physiologic uptake. Pharynx: No abnormal uptake. Larynx: No abnormal uptake. Lungs, pleura and trachea: A 5.7 cm thick-walled cavitary malignant tumor at the inferolateral aspect of the lateral segment of the right middle lobe has an SUV max of 12.8. Chronic emphysematous change. Bronchiectasis in the right middle lobe. Chronic appearing subpleural reticular opacities are consistent with interstitial fibrosis. Heart: Mild cardiomegaly. Enlarged left ventricle. Mediastinal space: No abnormal uptake. Diaphragm: There is a small hiatal hernia. Liver: No abnormal uptake. Gallbladder and bile ducts: No abnormal uptake. Pancreas: No abnormal uptake. Spleen: No abnormal uptake. Adrenal glands: The adrenals are normal. Kidneys and ureters: Normal physiologic uptake. Stomach and bowel: No abnormal uptake. Urinary bladder: A left posterior bladder diverticulum is 2.4 x 3.9 x 4.3 cm. Urinary bladder is otherwise unremarkable without wall thickening, mass or stone. Reproductive: Prostate enlargement, 5.5 x 5.0 x 5.4 cm (78 mL). Correlate with PSA. Vasculature: There is severe calcific atherosclerosis of the abdominal aorta and iliac arteries. There is no aneurysm. The infrarenal abdominal aorta is 2.6 cm. Lymph nodes: No hilar, mediastinal or axillary lymphadenopathy. Bones/joints: Chronic severe anterior wedge compression fracture of the L1 vertebral body. The posteroinferior cortex of the L1 vertebral body is retropulsed 5 mm into the spinal canal and causes mild/moderate central canal stenosis. Lumbar spine fusion surgery using interbody bone graft and posterior spinal instrumentation with pedicular screws and rods bilaterally at L3-L5. Soft tissues: No metabolically active areas. PET/PET skulltothigh INITIAL [id number] IMPRESSION: 1. A 5.7 cm cavitary malignant in the right middle lobe has an SUV max of 12.8. 2. No hilar, mediastinal or axillary lymphadenopathy. 3. No FDG avid distant metastases. 4. Chronic appearing subpleural reticular opacities are consistent with interstitial fibrosis. 5. Mild cardiomegaly. Enlarged left ventricle. 6. Chronic severe anterior wedge compression fracture of the L1 vertebral body causes mild/moderate central canal stenosis. 7. A spinal cord stimulator is positioned with its tip at the T7/8 level. 8. Enlarged prostate. Correlate with PSA.
== END 2022-05-31 08:12 | disposition home or self-care (01) ==
LOC: RAD 06-02 06:20
PROVIDERS: PCP Family Medicine; Visit Provider Internal Medicine Pulmonary Disease
DX: C34.2 Malignant neoplasm of middle lobe, bronchus or lung (principal); N40.0 Benign prostatic hyperplasia without lower urinary tract symptoms; I51.7 Cardiomegaly; S32.019A Unspecified fracture of first lumbar vertebra, initial encounter for closed fracture; X58.XXXA Exposure to other specified factors, initial encounter
CPT/HCPCS: 78815; A9552

== ENCOUNTER 2022-06-10 08:58 | Oncology outpatient (recurring) (ONCR) | payer MEDICARE, OTHER, SELFPAY | END 2022-06-17 23:59 | disposition home or self-care (01) | LOC: ONCMED 08:59 | PROVIDERS: PCP Family Medicine; Visit Provider Internal Medicine Medical Oncology | DX: C34.2 Malignant neoplasm of middle lobe, bronchus or lung (principal); I25.10 Atherosclerotic heart disease of native coronary artery without angina pectoris; I25.2 Old myocardial infarction; Z87.891 Personal history of nicotine dependence | CPT/HCPCS: 99215 ==

== ENCOUNTER → 2022-07-08 09:15 | Outpatient (BNVA) | payer MEDICARE, OTHER, SELFPAY | PROVIDERS: PCP Family Medicine; Visit Provider Nurse Practitioner Family | DX: C34.2 Malignant neoplasm of middle lobe, bronchus or lung (principal) | CPT/HCPCS: 99214 ==

== ENCOUNTER 2022-07-15 10:30 | Oncology outpatient (recurring) (ONCR) | payer MEDICARE, OTHER, SELFPAY ==
--- NOTE | 2022-06-23 11:13 | N.ONRAD NP_ITS ---
Radiation Oncology Consultation Patient Name: Elvis Paiz Date of : 1935 Date of Service: 06/23/2022 Attending Physician: Julian Dangelo M.D. Elvis Paiz was seen in consultation this afternoon at the request of Arpit Nino M.D. for consideration of thoracic radiotherapy in the management of a recently diagnosed non-small cell lung cancer. The patient was evaluated by his primary care physician in April of 2022 for hemoptysis. A chest radiograph reported right middle-lobe airspace disease suggesting a cavity or a pneumatocele. A thoracic CT scan obtained on April 18, 2022 described a right middle-lobe mass with central cavitation extending to the right hilum and prominent michael-bronchial lymph nodes. A navigational bronchoscopy with transbronchial biopsies was performed by Freddy Kurtz M.D. on April 29, 2022. 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 Samples obtained from lymph node station 7 and 10R were negative for malignancy. A PET scan (independently reviewed in [facility]) ordered on May 31, 2022 confirmed FDG activity within left upper lobe lung mass measuring 5.7 cm with a maximum SUV of 12.8. No regional nor distant metastatic disease were reported. He was referred for definitive thoracic radiotherapy. I discussed with Mr. Paiz the [place] [employer] Staging for lung cancer and specifically, the clinical stage IIB (T3N0) lung cancer corresponding to his disease. I also reviewed The National Comprehensive Cancer Network Guidelines recommending surgical exploration and mediastinal lymph node dissection or stereotactic ablative body radiotherapy for medically inoperable patients. In consideration of the size of the tumor, combined modality therapy or hypofractionated radiation therapy could considered if the patient is ineligible for SABR. Preceding radiotherapy, a computed tomographic radiotherapy planning scan with contrast in the treatment position will be acquired and co-registered to the patient's staging PET scan to identify the gross tumor volume. The patient???s medical treatment plan was discussed with Arpit Nino M.D. Signed by: Julian Dangelo 07/03/2022 9:58:58 AM
--- NOTE | 2022-07-03 | CT_ITS ---
Radiation Therapy Planning CT images; total exam DLP: 460.52 mGy-cm MTDD
[2022-07-03] MEDS: iohexol 350 mg/mL 100 mL Btl IV (10:25)
--- NOTE | 2022-07-04 11:19 | PC.NURSE ---
PICC line dressing change completed via sterile technique. No redness or irritation noted. REKHA
[2022-07-08 09:53] LABS: Basophils # 0.1 10^3/uL (0.0-0.1); Basophils % 0.6 %; Eosinophils # 0.4 10^3/uL (0.0-0.8); Eosinophils % 3.6 %; Hematocrit 39.9 % (42.0-52.0); Hemoglobin 12.4 g/dL (11.7-16.6); Lymphocytes # 2.2 10^3/uL (0.8-4.8); Lymphocytes % 20.9 %; Mean Corpuscular HGB Conc 31.1 g/dL (30.0-36.0); Mean Corpuscular Hemoglobin 29.1 pg (28.0-34.0); Mean Corpuscular Volume 93.7 fl (80-94); Mean Platelet Volume 10.7 fL (7.4-10.4); Monocytes # 0.9 10^3/uL (0.2-0.9); Monocytes % 8.8 %; Neutrophils # 6.93 10^3/uL (1.8-7.7); Neutrophils % 65.9 %; Nucleated Red Blood Cells % 0 %; Platelet Count 248 10^3/cmm (130-400); Red Blood Count 4.26 10^6/uL (4.1-5.3); Red Cell Distribution Width 13.9 % (12.1-15.1); White Blood Count 10.5 10^3/uL (4.0-10.0)
[2022-07-08 10:09] LABS: Alanine Aminotransferase 15 U/L (0-41); Albumin Level 3.5 g/dL (3.5-5.2); Alkaline Phosphatase 140 U/L (40-130); Anion Gap 12.8 (5-19); Aspartate Amino Transferase 16 U/L (0-40); Blood Urea Nitrogen 15 mg/dL (8-23); Calcium 9.8 mg/dL (8.5-10.5); Carbon Dioxide 27 mmol/L (22-29); Chloride 103 mmol/L (98-107); Globulin 3.3 g/dL (1.3-4.6); Glucose 107 mg/dL (65-115); Osmolality Calculated 289 mOsm/kg (285-295); Potassium 3.8 mmol/L (3.5-5.1); Sodium 139 mmol/L (136-145); Total Bilirubin 0.2 mg/dL (0.15-1.2); Total Protein 6.8 g/dL (6.6-8.7)
[2022-07-08] MEDS: sodium chloride 0.9% 250 ML 75 ML IV (12:05)
[2022-07-08] MEDS: palonosetron 0.25 mg/5 mL SDV IVP (12:06)
[2022-07-08] MEDS: famotidine 20 mg/2 mL INJ IVP (12:08)
[2022-07-08] MEDS: diphenhydrAMINE 50 mg/mL SDV 1mL 25 MG IVP (12:12)
[2022-07-08] MEDS: acetaminophen 325 mg Tablet 650 MG PO (12:15)
[2022-07-08] MEDS: dexamethasone 20 MG in sodium chloride 0.9% 50 ML 188 MG IV (12:27)
[2022-07-08] MEDS: PACLitaxeL 100 MG in sodium chloride 0.9%(non-DEHP) 250 ML 266.67 MG IV (12:53)
[2022-07-08] MEDS: CARBOplatin 200 MG in sodium chloride 0.9% 500 ML 520 MG IV (14:09)
[2022-07-14 11:40] VITALS: BP 121/66; PULSE 75; RESP 16; TEMP 36.8; O2SAT 94
[2022-07-14 12:03] LABS: Basophils % 0.5 %; Eosinophils # 0.3 10^3/uL (0.0-0.8); Eosinophils % 3.2 %; Hematocrit 37.3 % (42.0-52.0); Hemoglobin 11.8 g/dL (11.7-16.6); Lymphocytes # 1.1 10^3/uL (0.8-4.8); Lymphocytes % 14.5 %; Mean Corpuscular HGB Conc 31.6 g/dL (30.0-36.0); Mean Corpuscular Hemoglobin 29.4 pg (28.0-34.0); Mean Corpuscular Volume 92.8 fl (80-94); Mean Platelet Volume 11.3 fL (7.4-10.4); Monocytes # 0.3 10^3/uL (0.2-0.9); Monocytes % 3.8 %; Neutrophils # 6.03 10^3/uL (1.8-7.7); Neutrophils % 76.7 %; Nucleated Red Blood Cells % 0 %; Platelet Count 217 10^3/cmm (130-400); Red Blood Count 4.02 10^6/uL (4.1-5.3); Red Cell Distribution Width 13.3 % (12.1-15.1); White Blood Count 7.9 10^3/uL (4.0-10.0)
[2022-07-14 12:21] LABS: Alanine Aminotransferase 17 U/L (0-41); Albumin Level 3.4 g/dL (3.5-5.2); Alkaline Phosphatase 119 U/L (40-130); Blood Urea Nitrogen 18 mg/dL (8-23); Calcium 9.6 mg/dL (8.5-10.5); Carbon Dioxide 26 mmol/L (22-29); Chloride 103 mmol/L (98-107); Globulin 3.1 g/dL (1.3-4.6); Glucose 132 mg/dL (65-115); Osmolality Calculated 286 mOsm/kg (285-295); Sodium 136 mmol/L (136-145); Total Bilirubin 0.3 mg/dL (0.15-1.2); Total Protein 6.5 g/dL (6.6-8.7)
[2022-07-14 12:22] LABS: Anion Gap 11.7 (5-19); Aspartate Amino Transferase 19 U/L (0-40); Potassium 4.7 mmol/L (3.5-5.1)
[2022-07-15] MEDS: acetaminophen 325 mg Tablet 650 MG PO (11:50)
[2022-07-15] MEDS: sodium chloride 0.9% 250 ML 75 ML IV (11:50)
[2022-07-15] MEDS: palonosetron 0.25 mg/5 mL SDV IVP (11:52)
[2022-07-15] MEDS: famotidine 20 mg/2 mL INJ IVP (11:54)
[2022-07-15] MEDS: diphenhydrAMINE 50 mg/mL SDV 1mL 25 MG IVP (11:55)
[2022-07-15] MEDS: fosaprepitant 150 MG in sodium chloride 0.9% 150 ML 300 MG IV (12:01)
[2022-07-15] MEDS: dexamethasone 20 MG in sodium chloride 0.9% 50 ML 188 MG IV (12:20)
[2022-07-15] MEDS: PACLitaxeL 100 MG in sodium chloride 0.9%(non-DEHP) 250 ML 266.67 MG IV (12:41)
[2022-07-15] MEDS: CARBOplatin 220 MG in sodium chloride 0.9% 500 ML 522 MG IV (13:53)
[2022-07-15 15:08] VITALS: BP 125/63; PULSE 59; RESP 16; TEMP 36.6; O2SAT 97
== END 2022-07-15 23:59 | disposition home or self-care (01) ==
PROVIDERS: PCP Family Medicine; Visit Provider Internal Medicine Medical Oncology
DX: C34.2 Malignant neoplasm of middle lobe, bronchus or lung (principal); Z51.11 Encounter for antineoplastic chemotherapy; I25.10 Atherosclerotic heart disease of native coronary artery without angina pectoris; I25.2 Old myocardial infarction; I10 Essential (primary) hypertension; R11.2 Nausea with vomiting, unspecified; M25.59 Pain in other specified joint; G62.9 Polyneuropathy, unspecified; C78.02 Secondary malignant neoplasm of left lung; Z79.899 Other long term (current) drug therapy; Z87.891 Personal history of nicotine dependence
CPT/HCPCS: 36569; 71045; 77300; 77301; 77334; 77338; 77386; 77470; 80053; 85025; 99024; 99204; 99214; J1100; J1200; J1453; J2469; J3490; J7040; J7050; J9045; J9267; Q9967

== ENCOUNTER 2022-07-22 10:30 | Oncology outpatient (recurring) (ONCR) | payer MEDICARE, OTHER, SELFPAY ==
[2022-07-21 15:18] LABS: Basophils % 0.6 %; Eosinophils % 1.2 %; Hematocrit 34.2 % (42.0-52.0); Hemoglobin 10.9 g/dL (11.7-16.6); Lymphocytes # 0.6 10^3/uL (0.8-4.8); Lymphocytes % 18.4 %; Mean Corpuscular HGB Conc 31.9 g/dL (30.0-36.0); Mean Corpuscular Hemoglobin 29.3 pg (28.0-34.0); Mean Corpuscular Volume 91.9 fl (80-94); Mean Platelet Volume 11.2 fL (7.4-10.4); Monocytes # 0.2 10^3/uL (0.2-0.9); Monocytes % 7.1 %; Neutrophils # 2.33 10^3/uL (1.8-7.7); Neutrophils % 71.5 %; Nucleated Red Blood Cells % 0 %; Platelet Count 204 10^3/cmm (130-400); Red Blood Count 3.72 10^6/uL (4.1-5.3); Red Cell Distribution Width 13.2 % (12.1-15.1); White Blood Count 3.3 10^3/uL (4.0-10.0)
[2022-07-21 15:35] LABS: Alanine Aminotransferase 23 U/L (0-41); Albumin Level 3.2 g/dL (3.5-5.2); Alkaline Phosphatase 103 U/L (40-130); Blood Urea Nitrogen 15 mg/dL (8-23); Calcium 8.6 mg/dL (8.5-10.5); Carbon Dioxide 24 mmol/L (22-29); Chloride 98 mmol/L (98-107); Globulin 2.8 g/dL (1.3-4.6); Glucose 111 mg/dL (65-115); Osmolality Calculated 298 mOsm/kg (285-295); Sodium 143 mmol/L (136-145); Total Bilirubin 0.2 mg/dL (0.15-1.2)
[2022-07-21 15:37] LABS: Anion Gap 25.8 (5-19); Aspartate Amino Transferase 20 U/L (0-40); Potassium 4.8 mmol/L (3.5-5.1)
[2022-07-22] MEDS: sodium chloride 0.9% 250 ML IV (10:58)
== END 2022-07-22 12:28 | disposition home or self-care (01) ==
PROVIDERS: Nurse Practitioner Family; Absent Provider Radiology Radiation Oncology; PCP Family Medicine; Visit Provider Internal Medicine Medical Oncology
DX: C34.2 Malignant neoplasm of middle lobe, bronchus or lung (principal); R79.89 Other specified abnormal findings of blood chemistry; I25.10 Atherosclerotic heart disease of native coronary artery without angina pectoris; R04.0 Epistaxis; B37.0 Candidal stomatitis; R19.7 Diarrhea, unspecified; Z96.82 Presence of neurostimulator; R29.6 Repeated falls; Z79.899 Other long term (current) drug therapy; Z87.891 Personal history of nicotine dependence; I10 Essential (primary) hypertension; I25.2 Old myocardial infarction
CPT/HCPCS: 36592; 70450; 77014; 77336; 77386; 80053; 82565; 85025; 96360; 99214; J7050

== ENCOUNTER 2022-07-22 12:30 | Outpatient (CLI) | payer MEDICARE, OTHER, SELFPAY ==
--- NOTE | 2022-07-22 12:30 | CT_ITS ---
WS: [id number] CT HEAD NONCONTRAST HISTORY: falling, lung cancer TECHNIQUE: Contiguous axial imaging performed through the brain in 2.5 mm imaging. Bone and soft tiss ue windows. Sagittal and coronal reformats reviewed. All CT scans at [facility] use at least one of these dose optimization techniques: automated exposure control; mA and/or kV adjustment per pa tient size (includes targeted exams where dose is matched to clinical indication); or iterative recon struction. DLP: 1107.98 mGy.cm COMPARISON: 08/23/2021 and 10/02/2021 No acute intracranial hemorrhage, midline shift or mass effect. Moderate bilateral cerebral and cerebellar atrophy. Mild small vessel ischemic disease. No acute inte rval change. Ventricles: Ventricles and extra-axial spaces are prominent on the basis of atrophy. There is extensive calcified plaque within the vertebral and carotid and intracranial arteries. Paranasal sinuses: Extensive soft tissue distending the LEFT maxillary sinus as seen on prior studies . Variable density within the LEFT maxillary sinus is probably inspissated mucus secretions. Mastoid air cells: Well pneumatized. Calvarium and scalp: Skull is intact with no soft tissue edema or swelling. CT/CT head wo con* [id number] IMPRESSION: 1. No acute intracranial hemorrhage or edema. 2. Cerebral and cerebellar atrophy as described on prior studies.
== END 2022-07-22 12:31 | disposition home or self-care (01) ==
PROVIDERS: PCP Family Medicine; Visit Provider Nurse Practitioner Family
DX: W19.XXXA Unspecified fall, initial encounter (principal); C34.2 Malignant neoplasm of middle lobe, bronchus or lung; G31.9 Degenerative disease of nervous system, unspecified
CPT/HCPCS: 70450

== ENCOUNTER 2022-08-01 10:11 | Oncology outpatient (recurring) (ONCR) | payer MEDICARE, OTHER, SELFPAY ==
--- NOTE | 2022-07-23 15:10 | ONCRAD TMN_ITS ---
Radiation Oncology Treatment Management Note Patient Name: Elvis Paiz Date of : 1935 Date of Service: 07/23/2022 Attending Physician: Julian Dangelo M.D. Elvis Paiz is an 87 year-old white male recently diagnosed with a clinical stage IIB (T3N0) non-small cell lung cancer. The patient was evaluated by his primary care physician in April of 2022 for hemoptysis. A chest radiograph reported right middle-lobe airspace disease suggesting a cavity or a pneumatocele. A thoracic CT scan obtained on April 18, 2022 described a right middle-lobe mass with central cavitation extending to the right hilum and prominent michael-bronchial lymph nodes. A navigational bronchoscopy with transbronchial biopsies was performed by Freddy Kurtz M.D. on April 29, 2022. 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 Samples obtained from lymph node station 7 and 10R were negative for malignancy. A PET scan ordered on May 31, 2022 confirmed FDG activity within left upper-lobe lung mass measuring 5.7 cm with a maximum SUV of 12.8. No regional nor distant metastatic disease were reported. He has been prescribed carboplatin (AUC 2) and paclitaxel (50 mg/m???) weekly during therapy. The patient has received 22 Gy of a prescribed 60 Gy with an intensity modulated radiotherapy plan utilizing a step and shoot treatment technique. Upon review of systems, he denied any new pulmonary symptoms. On physical examination, the patient weighed 167 lbs. His temperature was 8.6 ???F and the blood pressure was 127/83 mmHg. The pulse was 90 bpm and his respiratory rate was 18. The oxygen saturation while breathing room air was 98%. Rales were present. Continue thoracic radiotherapy as prescribed. Signed by: Julian Dangelo 07/23/2022 3:09:04 PM
[2022-07-24] MEDS: alteplase 1 mg/mL SDV 2 mL 2 MG INTRACATH ×2 (09:29)
[2022-07-24 09:46] LABS: Basophils % 0.5 %; Eosinophils % 0.7 %; Hematocrit 32.7 % (42.0-52.0); Hemoglobin 10.5 g/dL (11.7-16.6); Lymphocytes # 0.7 10^3/uL (0.8-4.8); Mean Corpuscular HGB Conc 32.1 g/dL (30.0-36.0); Mean Corpuscular Hemoglobin 29.7 pg (28.0-34.0); Mean Corpuscular Volume 92.4 fl (80-94); Monocytes # 0.7 10^3/uL (0.2-0.9); Neutrophils % 68.1 %; Nucleated Red Blood Cells % 0 %; Platelet Count 215 10^3/cmm (130-400); Red Blood Count 3.54 10^6/uL (4.1-5.3); Red Cell Distribution Width 13.2 % (12.1-15.1); White Blood Count 4.4 10^3/uL (4.0-10.0)
[2022-07-24 10:03] LABS: Alanine Aminotransferase 20 U/L (0-41); Albumin Level 3.3 g/dL (3.5-5.2); Alkaline Phosphatase 109 U/L (40-130); Anion Gap 10.7 (5-19); Aspartate Amino Transferase 14 U/L (0-40); Blood Urea Nitrogen 12 mg/dL (8-23); Carbon Dioxide 27 mmol/L (22-29); Chloride 103 mmol/L (98-107); Glucose 114 mg/dL (65-115); Osmolality Calculated 285 mOsm/kg (285-295); Potassium 3.7 mmol/L (3.5-5.1); Sodium 137 mmol/L (136-145); Total Bilirubin 0.2 mg/dL (0.15-1.2); Total Protein 6.3 g/dL (6.6-8.7)
[2022-07-24] MEDS: famotidine 20 mg/2 mL INJ IVP (11:21)
[2022-07-24] MEDS: sodium chloride 0.9% 250 ML 100 ML IV (11:21)
[2022-07-24] MEDS: diphenhydrAMINE 50 mg/mL SDV 1mL 25 MG IVP (11:22)
[2022-07-24] MEDS: acetaminophen 325 mg Tablet 650 MG PO (11:22)
[2022-07-24] MEDS: fosaprepitant 150 MG in sodium chloride 0.9% 150 ML 300 MG IV (11:25)
[2022-07-24] MEDS: palonosetron 0.25 mg/5 mL SDV IVP (12:03)
[2022-07-24] MEDS: dexamethasone 20 MG in sodium chloride 0.9% 50 ML 188 MG IV (12:03)
[2022-07-24] MEDS: PACLitaxeL 100 MG in sodium chloride 0.9%(non-DEHP) 250 ML 266.67 MG IV (12:30)
[2022-07-24] MEDS: CARBOplatin 220 MG in sodium chloride 0.9% 500 ML 522 MG IV (13:37)
[2022-07-24 15:01] VITALS: BP 164/67; PULSE 60; TEMP 36.9; O2SAT 96
--- NOTE | 2022-07-29 15:36 | ONCRAD TMN_ITS ---
Radiation Oncology Weekly Treatment Management Patient: Elvis Paiz MR#: [id number] : 1935 Attending Physician: Hesham Branch DO Date of Service: 07/29/2022 Referring Physician(s) : Arpit Nino M.D. Diagnosis: C34.2 - Malignant neoplasm of middle lobe, bronchus or lung, Diagnosed 04/29/2022 (Active) Stage IIB, T3, N0, M0 Radiotherapy to date: Course: Lung 2022, Treatment Site: [facility] ??? RML, Ref. ID: [id number], Energy: 6X, Dose/Fx (cGy): 200, #Fx: 15 / 30, Dose Correction (cGy): 0, Total Dose (cGy): 3,000, Start Date: 07/08/2022, Elapsed Days: Reason for visit: The patient is being seen today as part of their regularly scheduled weekly on treatment visits to assess for acute toxicities from radiotherapy. Review of Systems: Patient notes mild to moderate fatigue. He is on Plavix for blood thinning and notes occasional scant blood from his nose. He denies any rectal bleeding or dark tarry stools. He had fallen at home and a CT scan of the head was obtained that was negative. He reports that he has a cane and walker at home and has started using a night light. Patient's of 60+ years was present with him today and their daughter who is a nurse was present by phone. Vital Signs: Performed on 07/29/2022 2:33 PM BP - 126/ 74 mm(hg), BMI - 24.662 kg/m2 (high), Height - 69 in, Weight - 167 lbs, Temperature - 98.0 f, Pulse - 83 /min, Respiration - 18 /min, O2 Sat - 93 % (low), Pain - 5 and Fatigue - 5. Physical Exam: Patient is alert and oriented. PERRL, EOMI. Cranial nerves II through XII grossly intact. Tongue and uvula midline and mobile. Speech intact. Patient ambulatory. He has a small abrasion on his scalp where he fell. Imaging: Radiation therapy imaging related to accurate target localization (i.e. KV, MV and CBCT) was reviewed. Appropriate changes, if any, were made to ensure treatment accuracy. Plan: Continue prescribed radiation therapy. Patient was advised to use extreme caution as he reports some visual loss in his left eye due to glaucoma. I discussed the potential loss of depth perception which can lead to falls and the potential for head injuries and or fractures. Signed by: Hesham Branch DO 07/29/2022 3:35:03 PM
[2022-07-30 11:30] LABS: Basophils % 0.7 %; Eosinophils # 0.1 10^3/uL (0.0-0.8); Eosinophils % 1.3 %; Hematocrit 35.2 % (42.0-52.0); Hemoglobin 11.3 g/dL (11.7-16.6); Lymphocytes # 0.5 10^3/uL (0.8-4.8); Lymphocytes % 9.8 %; Mean Corpuscular HGB Conc 32.1 g/dL (30.0-36.0); Mean Corpuscular Hemoglobin 29.6 pg (28.0-34.0); Mean Corpuscular Volume 92.1 fl (80-94); Mean Platelet Volume 10.6 fL (7.4-10.4); Monocytes # 0.2 10^3/uL (0.2-0.9); Neutrophils # 3.77 10^3/uL (1.8-7.7); Neutrophils % 81.9 %; Nucleated Red Blood Cells % 0 %; Platelet Count 213 10^3/cmm (130-400); Red Blood Count 3.82 10^6/uL (4.1-5.3); Red Cell Distribution Width 13.7 % (12.1-15.1); White Blood Count 4.6 10^3/uL (4.0-10.0)
[2022-07-30 11:48] LABS: Alanine Aminotransferase 21 U/L (0-41); Albumin Level 3.3 g/dL (3.5-5.2); Alkaline Phosphatase 105 U/L (40-130); Blood Urea Nitrogen 14 mg/dL (8-23); Calcium 8.7 mg/dL (8.5-10.5); Carbon Dioxide 27 mmol/L (22-29); Chloride 105 mmol/L (98-107); Globulin 2.8 g/dL (1.3-4.6); Glucose 130 mg/dL (65-115); Osmolality Calculated 292 mOsm/kg (285-295); Sodium 140 mmol/L (136-145); Total Bilirubin 0.3 mg/dL (0.15-1.2); Total Protein 6.1 g/dL (6.6-8.7)
[2022-07-30 11:54] LABS: Anion Gap 12.4 (5-19); Aspartate Amino Transferase 19 U/L (0-40); Potassium 4.4 mmol/L (3.5-5.1)
[2022-07-31] MEDS: sodium chloride 0.9% 250 ML 75 ML IV (11:48)
[2022-07-31] MEDS: acetaminophen 325 mg Tablet 650 MG PO (11:49)
[2022-07-31] MEDS: palonosetron 0.25 mg/5 mL SDV IVP (11:50)
[2022-07-31] MEDS: famotidine 20 mg/2 mL INJ IVP (11:52)
[2022-07-31] MEDS: diphenhydrAMINE 50 mg/mL SDV 1mL 25 MG IVP (11:54)
[2022-07-31] MEDS: fosaprepitant 150 MG in sodium chloride 0.9% 150 ML 300 MG IV (11:59)
[2022-07-31] MEDS: dexamethasone 20 MG in sodium chloride 0.9% 50 ML 188 MG IV (12:28)
[2022-07-31] MEDS: PACLitaxeL 100 MG in sodium chloride 0.9%(non-DEHP) 250 ML 266.67 MG IV (12:55)
[2022-07-31] MEDS: CARBOplatin 240 MG in sodium chloride 0.9% 500 ML 524 MG IV (14:02)
[2022-07-31 15:06] VITALS: BP 117/66; PULSE 71; RESP 20; TEMP 36.6; O2SAT 92
== END 2022-08-02 23:59 | disposition home or self-care (01) ==
PROVIDERS: Nurse Practitioner Family; Absent Provider Radiology Radiation Oncology; PCP Family Medicine; Visit Provider Radiology Radiation Oncology
DX: C34.2 Malignant neoplasm of middle lobe, bronchus or lung; Z51.0 Encounter for antineoplastic radiation therapy
CPT/HCPCS: 77336; 77386; 80053; 85025; 96367; 96375; 96409; 96413; 96417; 99213; 99214; J1100; J1200; J1453; J2469; J2997; J3490; J7040; J7050; J9045; J9267